=== PATIENT | female | born 1975 | race Caucasian/White ===

== ENCOUNTER 2016-08-17 19:56 | Emergency (ER) | payer OTHER, SELFPAY ==
--- NOTE | 2016-08-17 20:34 | ERPHSYRPT ---
- History of Present Illness Time Seen by Provider: 08/17/16 20:26 Source: patient, other Exam Limitations: no limitations Patient Subjective Stated Complaint: "i just want to end my life. the ambrose that i was seeing ended it and wanted me out of the house. he threw me out yesterday. i tried to kill myself last night by cutting my arm open. i was going tohang myself today" Triage Nursing Assessment: aox3, breathing unlabored, skin pink warm dry with 2 vertical lacs noted to left forarm and 2 horizontal lacs noted to left thigh, no bleeding noted and all well approximated, steady gait, tearful, pt had spool of rope in jacket pocket Physician History: The patient is a 41-year-old female with a friend who brings her in for severe depression and suicidal ideation since yesterday. She has a past medical history significant for numerous suicidal attempts and numerous psychiatric hospitalizations. Last night her on and off boyfriend of 20 years kicked her out of the house. She then took a knife and made 2 superficial lacerations to her left arm and 2 superficial lacerations to her left thigh. She bought a rope and was going to hang herself tonight. She said she might also step in front of a train. She denies alcohol use tonight. She states she used meth amphetamine one week ago. She also uses marijuana. She denies taking any overdose of her medicines, although she said she would possibly do that if she was sent home. She called the [facility] and discussed her situation. They do not have any beds so they sent her to the ER. Timing/Duration: yesterday Severity of Symptoms-Max: severe Severity of Symptoms-Current: severe Context related to: significant other Suicidal thoughts: gesture, specific plan Associated Symptoms: depressed, suicidal ideation Previous symptoms: same symptoms as today Allergies/Adverse Reactions: amoxicillin [Amoxicillin] Allergy (Mild, Verified 08/17/16 20:05) codeine [Codeine] Allergy (Mild, Verified 08/17/16 20:05) Home Medications: Escitalopram Oxalate [Lexapro] 10 mg PO DAILY 10/10/15 [History] Cyanocobalamin (Vitamin B-12) [Vitamin B-12] 1 mcg IM DIRECTIONS UNKNOWN [History] Fluticasone/Salmeterol [Advair Hfa 115-21 Mcg Inhaler] 1 - 2 puffs IH Q4-6HPRN PRN 08/17/16 [History] Levothyroxine Sodium 88 Mcg [Synthroid 88 Mcg] 88 mcg PO DAILY 08/17/16 [ History] Hx Tetanus, Diphtheria Vaccination/Date Given: No Hx Influenza Vaccination/Date Given: No Hx Pneumococcal Vaccination/Date Given: No - Past Medical History Pertinent Past Medical History: Yes Neurological History: Migraines ENT History: No Pertinent History Cardiac History: No Pertinent History Respiratory History: COPD Endocrine Medical History: No Pertinent History Musculoskeletal History: No Pertinent History GI Medical History: No Pertinent History History: No Pertinent History Psycho-Social History: Anxiety, Bipolar, Depression, Other Female Reproductive Disorders: Fibroids Other Medical History: benign brain tumor - Past Surgical History Past Surgical History: Yes Neuro Surgical History: No Pertinent History, Other Cardiac: No Pertinent History Respiratory: No Pertinent History Gastrointestinal: No Pertinent History Genitourinary: No Pertinent History Musculoskeletal: No Pertinent History Female Surgical History: Section Other Surgical History: Tumors from hip, head,and arm removed - Social History Smoking Status: Current every day smoker How long have you smoked: 40 Exposure to second hand smoke: Yes Drug Use: marijuana Patient Lives Alone: No - Female History Hx Last Menstrual Period: hyster Hx Now: No - Review of Systems Constitutional: No Fever, No Chills Eyes: No Symptoms Ears, Nose, & Throat: No Symptoms Respiratory: No Cough, No Dyspnea Cardiac: No Chest Pain, No Edema, No Syncope Abdominal/Gastrointestinal: No Abdominal Pain, No Nausea, No Vomiting, No Diarrhea Genitourinary Symptoms: No Dysuria Musculoskeletal: No Back Pain, No Neck Pain Skin: No Rash Neurological: No Dizziness, No Focal Weakness, No Sensory Changes Psychological: Drug Abuse, Depression, Suicidal Ideations, Emotional Lability Endocrine: No Symptoms Hematologic/Lymphatic: No Symptoms Immunological/Allergic: No Symptoms All Other Systems: Reviewed and Negative - Nursing Vital Signs Nursing Vital Signs: Initial Vital Signs Pulse Rate 71 Respiratory Rate 14 Blood Pressure [Right Arm] 110/36 Pain Intensity 0 - Physical Exam General Appearance: moderate distress Eyes, Ears, Nose, Throat Exam: normal ENT inspection, moist mucous membranes Neck Exam: normal inspection, non-tender, supple Respiratory Exam: normal breath sounds, lungs clear, No respiratory distress Cardiovascular Exam: regular rate/rhythm, No edema Gastrointestinal/Abdominal Exam: soft, No tenderness, No distention Extremities Exam: normal inspection, normal range of motion, No evidence of injury, No edema Current Suicidality: has suicide plan Neurological Exam: depressed affect Behavior/Eye Contact/Speech: cooperative, avoids eye contact Thoughts/Hallucinations: no apparent hallucination Skin Exam: normal color, warm, dry, No rash SpO2 Interpretation: normal Ordered Tests: Active Orders 24 hr Category Date Time Status ACETAMINOPHEN Stat Lab 08/17/16 20:57 Completed BMP Stat Lab 08/17/16 20:57 Completed CBC W DIFF Stat Lab 08/17/16 20:57 Completed Ethyl Alcohol,Urine Stat Lab 08/17/16 20:57 Completed HEPATIC FUNCTION PANEL Stat Lab 08/18/16 00:00 Completed SALICYLATE Stat Lab 08/17/16 20:57 Completed TSH [TSH, 3RD Generation] Stat Lab 08/18/16 00:00 Completed UA W/ MICROSCOPIC Stat Lab 08/17/16 20:57 Completed Urine Triage Profile Stat Lab 08/17/16 20:57 Completed Lab/Rad Data: Laboratory Result Diagrams 08/17/16 20:57 08/17/16 20:57 Laboratory Results 08/18/16 08/17/16 08/17/16 Range/Units 00:00 20:57 20:57 WBC (4.0-10.5) K/mm3 RBC (4.1-5.4) M/mm3 Hgb (12.0-16.0) gm/dl Hct (35-47) % MCV (78-100) fl MCH (26-32) pg MCHC (32-36) g/dl RDW (11.5-14.0) % Plt Count (150-450) K/mm3 MPV (6-9.5) fl Gran % (36.0-66.0) % Lymphocytes % (24.0-44.0) % Monocytes % (0.0-12.0) % Eosinophils % (0.00-5.0) % Basophils % (0.0-0.4) % Basophils # (0-0.4) Sodium 136 (136-145) mEq/L Potassium 4.3 (3.5-5.1) mEq/L Chloride 102 (98-107) mEq/L Carbon Dioxide 23.6 (21-32) mEq/L Anion Gap 15.0 (5-15) MEQ/L BUN 12 (9-20) mg/dL Creatinine 0.80 (0.55-1.30) mg/dl Estimated GFR > 60 ML/MIN Glucose 85 (70-110) MG/DL Calcium 9.2 (8.5-10.1) mg/dL Total Bilirubin 0.7 (0.2-1.0) mg/dL Direct Bilirubin 0.19 (0.0-0.2) MG/DL AST 42 H (15-37) U/L ALT 22 (12-78) U/L Alkaline Phosphatase 110 (46-116) U/L Serum Total Protein 8.1 (6.4-8.2) gm/dL Albumin 4.0 (3.4-5.0) g/dL TSH 3rd Generation 12.413 H (0.358-3.740) mIU/L Ur Collection Type Urine Color (YELLOW) Urine Appearance (CLEAR) Urine pH 7.0 (5-6) Ur Specific Wing (1.005-1.025) Urine Protein (Negative) Urine Glucose (UA) (NEGATIVE) mg/dL Urine Ketones (NEGATIVE) Urine Nitrite (NEGATIVE) Urine Bilirubin (NEGATIVE) Urine Urobilinogen (0-1) mg/dL Urine WBC (Auto) (NEGATIVE) Urine RBC (Auto) (0-5) Say/ul Urine Microscopic RBC (0-2) /HPF Urine Microscopic WBC (0-5) /HPF Ur Epithelial Cells (FEW) /HPF Amorphous Crystals (NEGATIVE) /HPF Urine Bacteria (NEGATIVE) /HPF Urine Mucus (NEGATIVE) /HPF Salicylates 5.2 (2.8-20.0) mg/dl Urine Opiates Level (NEGATIVE) Ur Methadone (NEGATIVE) Acetaminophen < 2.0 L (10-30) ug/ml Urine Barbiturates (NEGATIVE) Ur Phencyclidine (PCP) (NEGATIVE) Urine Amphetamine (NEGATIVE) U Benzodiazepine Level (NEGATIVE) Urine Cocaine (NEGATIVE) Urine Marijuana (THC) (NEGATIVE) Urine Ethyl Alcohol < 3 (0.00-20) mg/dl Specimen Received 08/17/16 08/17/16 08/17/16 Range/Units 20:57 20:57 20:57 WBC 5.0 (4.0-10.5) K/mm3 RBC 4.80 (4.1-5.4) M/mm3 Hgb 14.0 (12.0-16.0) gm/dl Hct 42.7 (35-47) % MCV 89.0 (78-100) fl MCH 29.2 (26-32) pg MCHC 32.8 (32-36) g/dl RDW 13.7 (11.5-14.0) % Plt Count 204 (150-450) K/mm3 MPV 10.0 H (6-9.5) fl Gran % 63.4 (36.0-66.0) % Lymphocytes % 30.0 (24.0-44.0) % Monocytes % 6.0 (0.0-12.0) % Eosinophils % 0.4 (0.00-5.0) % Basophils % 0.2 (0.0-0.4) % Basophils # 0.01 (0-0.4) Sodium (136-145) mEq/L Potassium (3.5-5.1) mEq/L Chloride (98-107) mEq/L Carbon Dioxide (21-32) mEq/L Anion Gap (5-15) MEQ/L BUN (9-20) mg/dL Creatinine (0.55-1.30) mg/dl Estimated GFR ML/MIN Glucose (70-110) MG/DL Calcium (8.5-10.1) mg/dL Total Bilirubin (0.2-1.0) mg/dL Direct Bilirubin (0.0-0.2) MG/DL AST (15-37) U/L ALT (12-78) U/L Alkaline Phosphatase (46-116) U/L Serum Total Protein (6.4-8.2) gm/dL Albumin (3.4-5.0) g/dL TSH 3rd Generation (0.358-3.740) mIU/L Ur Collection Type CLEAN CATCH Urine Color YELLOW (YELLOW) Urine Appearance SLIGHTLY CLOUDY (CLEAR) Urine pH 7.0 (5-6) Ur Specific Wing 1.020 (1.005-1.025) Urine Protein TRACE (Negative) Urine Glucose (UA) NEGATIVE (NEGATIVE) mg/dL Urine Ketones MODERATE-40 (NEGATIVE) Urine Nitrite NEGATIVE (NEGATIVE) Urine Bilirubin SMALL (NEGATIVE) Urine Urobilinogen 1 (0-1) mg/dL Urine WBC (Auto) NEGATIVE (NEGATIVE) Urine RBC (Auto) NEGATIVE (0-5) Say/ul Urine Microscopic RBC 0-2 (0-2) /HPF Urine Microscopic WBC 0-2 (0-5) /HPF Ur Epithelial Cells MANY (FEW) /HPF Amorphous Crystals FEW (NEGATIVE) /HPF Urine Bacteria MODERATE (NEGATIVE) /HPF Urine Mucus MODERATE (NEGATIVE) /HPF Salicylates (2.8-20.0) mg/dl Urine Opiates Level NEG. (NEGATIVE) Ur Methadone NEG. (NEGATIVE) Acetaminophen (10-30) ug/ml Urine Barbiturates NEG. (NEGATIVE) Ur Phencyclidine (PCP) NEG. (NEGATIVE) Urine Amphetamine NEG. (NEGATIVE) U Benzodiazepine Level NEG. (NEGATIVE) Urine Cocaine NEG. (NEGATIVE) Urine Marijuana (THC) POS. (NEGATIVE) Urine Ethyl Alcohol (0.00-20) mg/dl Specimen Received 08/18/16 2100 - Progress Progress: unchanged Counseled pt/family regarding: lab results, diagnosis - Departure Time of Disposition: 04:23 Departure Disposition: Transfer (Transfer to [facility] per Dr Diaz) Clinical Impression: Depression, Suicide ideation Condition: Stable Critical Care Time: No
[2016-08-17 21:04] LABS: BASOPHIL % 0.2 % (0.0-0.4); Eosinophil % 0.4 % (0.00-5.0); Granulocytes % 63.4 % (36.0-66.0); Mean Corpuscular Hemoglobin 29.2 pg (26-32); Platelet Count 204 K/mm3 (150-450); Red Cell Distribution Width 13.7 % (11.5-14.0)
[2016-08-17 21:20] LABS: Bacteria MODERATE /HPF (NEGATIVE); COMPLETE URINE MICROSCOPIC? YES; Collection Type CLEAN CATCH; Epithelial Cells MANY /HPF (FEW); Mucus MODERATE /HPF (NEGATIVE); WBC 0-2 /HPF (0-5)
[2016-08-17 21:26] LABS: ACETAMINOPHEN < 2.0 ug/ml (10-30); BLOOD UREA NITROGEN 12 mg/dL (9-20); CHLORIDE 102 mEq/L (98-107); Carbon Dioxide 23.6 mEq/L (21-32); Glucose 85 MG/DL (70-110); Potassium 4.3 mEq/L (3.5-5.1); SODIUM 136 mEq/L (136-145)
[2016-08-18 03:25] LABS: BILIRUBIN,TOTAL 0.7 mg/dL (0.2-1.0); Total Protein 8.1 gm/dL (6.4-8.2)
[2016-08-18 03:37] LABS: Direct Bilirubin 0.19 MG/DL (0.0-0.2)
[2016-08-18 04:50] VITALS: BP 123/63; PULSE 67; O2SAT 97
== END 2016-08-18 05:05 | disposition short-term general hospital (02) ==
LOC: ED 19:56
DX: F32.9 Major depressive disorder, single episode, unspecified (principal); R45.851 Suicidal ideations; S51.812A Laceration without foreign body of left forearm, initial encounter; S71.112A Laceration without foreign body, left thigh, initial encounter; X78.1XXA Intentional self-harm by knife, initial encounter
CPT/HCPCS: 36415; 80048; 80076; 80307; 80320; 81000; 83986; 84443; 85025; 99284; 99285; G0481

== ENCOUNTER 2018-08-20 15:40 | Emergency (ER) | payer OTHER ==
[2018-08-20] MEDS ORDERED: TYLENOL 325 MG PO STA (16:21)
[2018-08-20] MEDS ORDERED: Levofloxacin 250MG Tablet PO ONE (16:22)
[2018-08-20] MEDS ORDERED: DUONEB 0.5-3 MG/3 ml Neb IH ONE ×2 (16:23→16:46)
[2018-08-20] MEDS ORDERED: TYLENOL 325 MG ONE (16:30)
[2018-08-20] MEDS ORDERED: Levofloxacin 250MG Tablet ONE (16:30)
--- NOTE | 2018-08-20 16:30 | ERPHSYRPT ---
- History of Present Illness Time Seen by Provider: 08/20/18 16:10 Source: patient Exam Limitations: clinical condition Patient Subjective Stated Complaint: cough for 2 weeks, thick sputum-brownish in color, diarrhea Triage Nursing Assessment: Pt c/o of a cough for the past 2 weeks, coughing up thick brownish sputum, diarrhea, had been on antibiotics and steroids but finished her regimen, pt is flush in color, afebrile, diaphoretic, tachycardic, rates pain in chest as a 4/10 when she coughs Physician History: PATIENT WITH A HISTORY OF A PRODUCTIVE COUGH FOR 2 WEEKS, FINISHED A 1 WEEK COURSE OF ANTIBIOTIC KEFLEX WITH NO IMPROVEMENT. DENIES FEVER,CHILLS OR NIGHT SWEATS. HAS A PERSISTENT SORETHROAT. Timing/Duration: week(s) Cough Quality/Degree: productive cough Possible Cause: occasional episodes Modifying Factors: Improves With: coughing, other (SMOKER) International travel in last 2 weeks: No Allergies/Adverse Reactions: amoxicillin [Amoxicillin] Allergy (Mild, Verified 08/20/18 16:09) codeine [Codeine] Allergy (Mild, Verified 08/20/18 16:09) Home Medications: Escitalopram Oxalate [Lexapro] 10 mg PO DAILY 10/10/15 [History] Cyanocobalamin (Vitamin B-12) [Vitamin B-12] 1 mcg IM DIRECTIONS UNKNOWN [History] Fluticasone/Salmeterol [Advair Hfa 115-21 Mcg Inhaler] 1 - 2 puffs IH Q4-6HPRN PRN 08/17/16 [History] Levothyroxine Sodium 88 Mcg [Synthroid 88 Mcg] 88 mcg PO DAILY 08/17/16 [ History] Albuterol Common Canister [Proventil Common Canister] 1 inh PO UD PRN [History] Aripiprazole 10 mg [Abilify 10 MG] 10 mg PO DAILY 08/20/18 [History] Oxcarbazepine 300 mg [Trileptal 300 MG Tablet] 300 mg PO DAILY 08/20/18 [ History] Hx Tetanus, Diphtheria Vaccination/Date Given: No Hx Influenza Vaccination/Date Given: No Hx Pneumococcal Vaccination/Date Given: No - Review of Systems Constitutional: No Symptoms, No Fever, No Chills Eyes: No Symptoms Ears, Nose, & Throat: No Symptoms, Throat Pain Respiratory: Cough, No Dyspnea Cardiac: No Chest Pain, No Edema, No Syncope Abdominal/Gastrointestinal: No Symptoms, No Abdominal Pain, No Nausea, No Vomiting, No Diarrhea Genitourinary Symptoms: No Symptoms, No Dysuria Musculoskeletal: No Symptoms, No Back Pain, No Neck Pain Skin: No Rash Neurological: No Dizziness, No Focal Weakness, No Sensory Changes Psychological: No Symptoms Endocrine: No Symptoms Hematologic/Lymphatic: No Symptoms All Other Systems: Reviewed and Negative - Past Medical History Pertinent Past Medical History: Yes Neurological History: Migraines ENT History: No Pertinent History Cardiac History: No Pertinent History Respiratory History: COPD Endocrine Medical History: No Pertinent History Musculoskeletal History: No Pertinent History GI Medical History: No Pertinent History History: No Pertinent History Psycho-Social History: Anxiety, Bipolar, Depression, Other Female Reproductive Disorders: Fibroids Other Medical History: benign brain tumor - Past Surgical History Past Surgical History: Yes Neuro Surgical History: No Pertinent History, Other Cardiac: No Pertinent History Respiratory: No Pertinent History Gastrointestinal: No Pertinent History Genitourinary: No Pertinent History Musculoskeletal: No Pertinent History Female Surgical History: Hysterectomy, Section Other Surgical History: Tumors from hip, head,and arm removed - Social History Smoking Status: Current every day smoker How long have you smoked: 33 years Exposure to second hand smoke: Yes Drug Use: marijuana Patient Lives Alone: No - Female History Hx Now: No (hysterectomy) - Nursing Vital Signs Nursing Vital Signs: Initial Vital Signs Temperature 98.0 F 08/20/18 15:56 Pulse Rate 107 H 08/20/18 15:56 Blood Pressure 125/90 08/20/18 15:56 O2 Sat by Pulse Oximetry 97 08/20/18 15:56 Pain Scale Pain Intensity 2 - Physical Exam General Appearance: no apparent distress, alert Eye Exam: PERRL/EOMI, eyes nml inspection Ears, Nose, Throat Exam: normal ENT inspection, TMs normal, pharynx normal, moist mucous membranes Neck Exam: normal inspection, non-tender, supple, full range of motion Respiratory Exam: normal breath sounds ( ), lungs clear, diminished breath sounds ( AT BASES), No respiratory distress Cardiovascular Exam: regular rate/rhythm, normal heart sounds Gastrointestinal/Abdomen Exam: No tenderness Back Exam: normal inspection, No CVA tenderness, No vertebral tenderness Extremity Exam: normal inspection, normal range of motion Neurologic Exam: alert, oriented x 3, cooperative, normal mood/affect, sensation nml, No motor deficits Skin Exam: normal color, warm, dry, No rash Lymphatic Exam: No adenopathy SpO2 Interpretation: normal SpO2: 98 - Radiology Exams Chest X-ray Interpretation: Interpreted by me (HYPERVENTILATED LUNGS, NO EVIDENCE OF INFILTRATES) Ordered Tests: Active Orders 24 hr Category Date Time Status CHEST 2 VIEWS (PA AND LAT) Stat Exams 08/20/18 17:01 Ordered Peak Expiratory Flow Rate ONCE RT 08/20/18 16:51 Active Respiratory Therapy Assessment DAILY RT 08/20/18 16:51 Active Medication Summary Discontinued Medications Generic Name Dose Route Start Last Admin Trade Name Dustinq PRN Reason Stop Dose Admin Acetaminophen 650 mg 08/20/18 16:21 08/20/18 16:30 Tylenol 325 Mg PO 08/20/18 16:22 650 mg STAT STA Administration Acetaminophen Confirm 08/20/18 16:30 Tylenol 325 Mg Administered 08/20/18 16:31 Dose 650 mg .ROUTE .STK-MED ONE Albuterol/Ipratropium 3 ml 08/20/18 16:23 08/20/18 16:51 Duoneb 0.5-3 Mg/3 Ml Neb IH 08/20/18 16:24 3 ml STAT ONE Administration Albuterol/Ipratropium Confirm 08/20/18 16:46 Duoneb 0.5-3 Mg/3 Ml Neb Administered 08/20/18 16:47 Dose 3 ml IH .STK-MED ONE Levofloxacin 500 mg 08/20/18 16:22 08/20/18 16:30 Levofloxacin 250mg Tablet PO 08/20/18 16:23 500 mg STAT ONE Administration Levofloxacin Confirm 08/20/18 16:30 Levofloxacin 250mg Tablet Administered 08/20/18 16:31 Dose 500 mg .ROUTE .STK-MED ONE Lab/Rad Data: Laboratory Results 08/20/18 Range/Units 16:34 Influenza Type A Ag NEGATIVE (NEGATIVE) Influenza Type B Ag NEGATIVE (NEGATIVE) RSV (PCR) NEGATIVE (Negative) Group A Strep Antibody NEGATIVE (NEGATIVE) - Progress Progress Note: 08/20/18 16:28 TYLENOL 650MG, LEVAQUIN 500MG ORALLY, FOLLOWED BY DUO NEB AEROSOL 08/20/18 17:31, STREP AND INFLUENZA NEGATIVE Counseled pt/family regarding: lab results, diagnosis, need for follow-up - Departure Time of Disposition: 17:45 Departure Disposition: Home Clinical Impression: ACUTE EXACERBATION COPD Clinical Impression: (Ruled Out): Acute exacerbation of asthma with allergic rhinitis Condition: Stable Critical Care Time: No Referrals: JACE FRENCH [Primary Care Provider] - Additional Instructions: TAKE OVER THE COUNTER COUGH SYRUP EVERY 4 HOURS NEEDED. ANTIBIOTIC LEVAQUIN 500MG DAILY FOR 10 DAYS. PREDNISONE 20MG, 2 TABLETS DAILY FOR 4 DAYS. TYLENOL OR MOTRIN NEEDED FOR FEVER. CONSULT YOUR PRIMARY CARE PROVIDER FOR FOLLOWUP IN 1 WEEK. RETURN TO EMERGENCY FOR FEVER, PERSISTENT COUGH OR DIFFICULTY BREATHING. Prescriptions: Levofloxacin [Levaquin] 500 mg PO DAILY #10 tablet Prednisone 20 mg [Deltasone 20 mg] 2 tab PO DAILY #8 tablet
[2018-08-20 17:08] VITALS: PULSE 85
[2018-08-20 17:13] LABS: Group A Strep NEGATIVE (NEGATIVE); INFLUENZA A NEGATIVE (NEGATIVE); INFLUENZA B NEGATIVE (NEGATIVE); RESPIRATORY SYNCTIAL VIRUS NEGATIVE (Negative)
[2018-08-20 17:49] VITALS: BP 110/88; O2SAT 96
--- NOTE | 2018-08-20 22:50 | XRAY ---
Indication: Cough. Comparison: May 22, 2015. PA/lateral chest remains hyperinflated and clear. Heart is not enlarged. Bony thorax intact. No new/acute findings. Impression: Stable nonacute hyperinflated chest.
== END 2018-08-20 17:48 | disposition home or self-care (01) ==
LOC: ED 15:40
DX: J44.1 Chronic obstructive pulmonary disease with (acute) exacerbation (principal); J45.901 Unspecified asthma with (acute) exacerbation; Z79.899 Other long term (current) drug therapy
CPT/HCPCS: 71046; 87631; 87651; 94150; 94640; 99284; A9270-GY

== ENCOUNTER 2019-05-08 13:08 | Emergency (ER) | payer OTHER ==
--- NOTE | 2019-05-08 13:24 | ERPHSYRPT ---
- History of Present Illness Time Seen by Provider: 05/08/19 13:10 Source: patient Exam Limitations: no limitations Physician History: Metal bar from a deer tripod came down and hit her on the top of her right wrist on 05/07/2019 at approximately 4 PM in the afternoon. The pain worsened throughout the day of 05/08/2019. Patient has not had any evaluation or treatment of her wrist pain since the injury. Occurred: yesterday Method of Injury: direct blow Quality: constant Severity of Pain-Max: moderate Severity of Pain-Current: severe Extremities Pain Location: wrist: right Modifying Factors: Improves With: immobilization, rest. Worsens With: movement Associated Symptoms: none, No back pain, No chills, No chest discomfort, No chest pain, No dyspnea, No fever, No jaw pain, No nausea, No neck pain, No sweating, No short of breath, No vomiting Allergies/Adverse Reactions: amoxicillin [Amoxicillin] Allergy (Mild, Verified 05/08/19 13:24) codeine [Codeine] Allergy (Mild, Verified 05/08/19 13:24) Home Medications: Escitalopram Oxalate [Lexapro] 10 mg PO DAILY 10/10/15 [History] Cyanocobalamin (Vitamin B-12) [Vitamin B-12] 1 mcg IM DIRECTIONS UNKNOWN [History] Fluticasone/Salmeterol [Advair Hfa 115-21 Mcg Inhaler] 1 - 2 puffs IH Q4-6HPRN PRN 08/17/16 [History] Levothyroxine Sodium 88 Mcg [Synthroid 88 Mcg] 88 mcg PO DAILY 08/17/16 [ History] Albuterol Common Canister [Proventil Common Canister] 1 inh PO UD PRN [History] Aripiprazole 10 mg [Abilify 10 MG] 10 mg PO DAILY 08/20/18 [History] Oxcarbazepine 300 mg [Trileptal 300 MG Tablet] 300 mg PO DAILY 08/20/18 [ History] Hx Tetanus, Diphtheria Vaccination/Date Given: No Hx Influenza Vaccination/Date Given: No Hx Pneumococcal Vaccination/Date Given: No - Review of Systems Constitutional: No Fever, No Chills, No Fatigue Eyes: No Eye Pain, No Tearing, No Vision Changes Ears, Nose, & Throat: No Nose Pain, No Epistaxis, No Mouth Pain, No Loose Teeth , No Painful Swallowing Respiratory: No Cough, No Dyspnea Cardiac: No Chest Pain, No Palpitations, No Syncope Abdominal/Gastrointestinal: No Abdominal Pain, No Nausea, No Vomiting Genitourinary Symptoms: No Hematuria, No Flank Pain Musculoskeletal: No Back Pain, No Neck Pain Skin: No Pruritis, No Rash, No Skin Lesions Neurological: No Dizziness, No Focal Weakness, No Headache, No Sensory Changes, No Tremors Psychological: No Anxiety Hematologic/Lymphatic: No Easy Bleeding, No Easy Bruising All Other Systems: Reviewed and Negative - Past Medical History Pertinent Past Medical History: Yes Neurological History: Migraines ENT History: No Pertinent History Cardiac History: No Pertinent History Respiratory History: COPD Endocrine Medical History: No Pertinent History Musculoskeletal History: No Pertinent History GI Medical History: No Pertinent History History: No Pertinent History Psycho-Social History: Anxiety, Bipolar, Depression, Other Female Reproductive Disorders: Fibroids Other Medical History: benign brain tumor - Past Surgical History Past Surgical History: Yes Neuro Surgical History: No Pertinent History, Other Cardiac: No Pertinent History Respiratory: No Pertinent History Gastrointestinal: No Pertinent History Genitourinary: No Pertinent History Musculoskeletal: No Pertinent History Female Surgical History: Hysterectomy, Section Other Surgical History: Tumors from hip, head,and arm removed - Social History Smoking Status: Current every day smoker How long have you smoked: 33 years Exposure to second hand smoke: Yes Drug Use: marijuana Patient Lives Alone: No - Female History Hx Now: No - Nursing Vital Signs Nursing Vital Signs: Initial Vital Signs Temperature 97.6 F 05/08/19 13:14 Pulse Rate 96 H 05/08/19 13:14 Blood Pressure 98/78 05/08/19 13:14 O2 Sat by Pulse Oximetry 100 05/08/19 13:14 Pain Scale Pain Intensity 10 - Physical Exam General Appearance: no apparent distress, alert Eyes, Ears, Nose, Throat Exam: pharynx normal, moist mucous membranes Neck Exam: normal inspection, non-tender, supple, full range of motion, No Brudzinski Cardiovascular/Respiratory Exam: chest non-tender, normal breath sounds, regular rate/rhythm, heart sounds normal Back Exam: normal inspection, normal range of motion, No CVA tenderness, No vertebral tenderness Shoulder Exam: normal inspection, non-tender, no evidence of injury, normal ROM , No bone tenderness, No deformity Elbow/Forearm Exam: normal inspection, non-tender, no evidence of injury, normal ROM, No bone tenderness, No deformity Wrist Exam: bone tenderness (right only), limited ROM (right only), pain (right only), swelling (right only) Hand Exam: normal inspection, non-tender, no evidence of injury, normal ROM, No bone tenderness, No deformity, No laceration, No soft tissue tenderness DTR - Upper Extremity Exam: tricep (R): 2+, tricep (L): 2+ Neuro/Tendon Exam: normal sensation, normal motor functions, normal tendon functions, no evidence tendon injury, No motor deficit, No sensory deficit Mental Status Exam: alert, oriented x 3, cooperative Skin Exam: normal color, warm, dry, No rash, No petechiae, No abrasion, No ecchymosis, No laceration SpO2 Interpretation: normal O2 Delivery: Room Air - Course Nursing assessment & vital signs reviewed: Yes - Radiology Exams Right Wrist X-ray Interpretation: Interpreted by me, Reviewed by me, No Fracture, Nml Alignment, Other (mild soft tissue swelling) Ordered Tests: Active Orders 24 hr Category Date Time Status WRIST (MIN 3 VIEWS) Stat Exams 05/08/19 13:14 Ordered Medication Summary Discontinued Medications Generic Name Dose Route Start Last Admin Trade Name Parker PRN Reason Stop Dose Admin Ketorolac Tromethamine 60 mg 05/08/19 13:31 Toradol 30 Mg Injection IM 05/08/19 13:32 STAT ONE - Progress Progress: improved Progress Note: 05/08/19 13:47 Pain is beginning to improve with ice application and IM Toradol Counseled pt/family regarding: diagnosis, need for follow-up, rad results - Departure Departure Disposition: Home Clinical Impression: Contusion of right wrist, initial encounter Condition: Good Critical Care Time: No Referrals: JACE FRENCH [Primary Care Provider] - [facility]-Ortho M-[id number] Instructions: Wrist Pain, Contusion (DC) Additional Instructions: your wrist x-rays were interpreted as being negative for any fracture or dislocation by the emergency department physician today. We will notify you if there is any change in the interpretation by the radiologist A. changes her course of action. Use ice for 15-20 minutes on, 40-45 minutes off 3-4 times a day over the next few days to help with pain and swelling. Follow-up in the orthopedic clinic as an outpatient at 8 AM if the the pain has continued to bother you within the next 3 days. return immediately back to the emergency department if any loss of function, loss of sensation, discoloration, breakdown in the skin, or any other concerning signs or symptoms that were not present at the days and return visit for immediate reevaluation in the emergency department. Prescriptions: Etodolac 400 mg [Lodine 400 mg] 400 mg PO BID PRN PRN #20 tablet PRN Reason: Pain
[2019-05-08] MEDS ORDERED: TORAdol 30 mg Injection ONE (14:01)
[2019-05-08] MEDS: TORAdol 30 mg Injection IM ONE (14:03)
[2019-05-08 14:07] VITALS: BP 110/81; PULSE 101; O2SAT 97
--- NOTE | 2019-05-09 08:06 | XRAY ---
Indication: Pain following injury. Comparison: February 09, 2009. 3 views of the right wrist obtained. No bony, articular, or soft tissue abnormalities.
== END 2019-05-08 14:18 | disposition home or self-care (01) ==
LOC: ED 13:08
DX: S60.211A Contusion of right wrist, initial encounter (principal); W22.8XXA Striking against or struck by other objects, initial encounter
CPT/HCPCS: 73110; 96372; 99284; J1885

== ENCOUNTER 2020-03-04 04:21 | Emergency (ER) | payer OTHER ==
[2020-03-04 04:43] VITALS: O2SAT 98
[2020-03-04 04:48] LABS: Absolute Neutrophil Ct (ANC) 3.93 (1.4-6.9); BASOPHIL % 0.3 % (0.0-0.4); Basophil (Absolute #) 0.02 (0-0.4); Eosinophil % 1.1 % (0.00-5.0); Eosinophil (Absolute #) 0.07 (0-0.5); Hematocrit 41.9 % (35-47); Hemoglobin 13.2 gm/dl (12.0-16.0); Lymphocyte (Absolute #) 2.18 (1.0-4.6); Lymphocytes % 32.7 % (24.0-44.0); Mean Corpuscular Hgb Concent. 31.5 g/dl (32-36); Mean Platelet Volume 9.7 fl (7.5-11.0); Monocyte (Absolute #) 0.46 (0.0-1.3); Monocytes % 6.9 % (0.0-12.0); Platelet Count 199 K/mm3 (150-450); Red Blood Count 4.71 M/mm3 (4.1-5.4); Red Cell Distribution Width 12.9 % (11.5-14.0); White Blood Count 6.7 K/mm3 (4.0-10.5)
[2020-03-04] MEDS ORDERED: MORPHINE SULFATE 4 MG INJ IV ONE (04:50)
[2020-03-04] MEDS ORDERED: Zofran 4 MG/2 ML VIAL IV ONE (04:51)
--- NOTE | 2020-03-04 04:53 | ERPHSYRPT ---
- History of Present Illness Time Seen by Provider: 03/04/20 04:39 Historian: patient Exam Limitations: no limitations Patient Subjective Stated Complaint: "My chest hurts so bad on the left side." Triage Nursing Assessment: . Timing/Duration: yesterday, sudden, worse Activities at Onset: other Quality: sharpness, stabbing Chest Pain Radiation: no radiation Severity of Pain-Max: severe Severity of Pain-Current: severe Allergies/Adverse Reactions: amoxicillin [Amoxicillin] Allergy (Mild, Verified 03/04/20 04:26) codeine [Codeine] Allergy (Mild, Verified 03/04/20 04:26) Home Medications: Escitalopram Oxalate [Lexapro] 10 mg PO DAILY 10/10/15 [History] Cyanocobalamin (Vitamin B-12) [Vitamin B-12] 1 mcg IM DIRECTIONS UNKNOWN [History] Fluticasone/Salmeterol [Advair Hfa 115-21 Mcg Inhaler] 1 - 2 puffs IH Q4-6HPRN PRN 08/17/16 [History] Levothyroxine Sodium 88 Mcg [Synthroid 88 Mcg] 88 mcg PO DAILY 08/17/16 [History] Albuterol Common Canister [Ventolin Common Canister] 1 inh PO UD PRN 08/20/18 [History] Aripiprazole 10 mg [Abilify 10 MG] 10 mg PO DAILY 08/20/18 [History] Oxcarbazepine 300 mg [Trileptal 300 MG Tablet] 300 mg PO DAILY 08/20/18 [History] Hx Tetanus, Diphtheria Vaccination/Date Given: No Hx Influenza Vaccination/Date Given: No Hx Pneumococcal Vaccination/Date Given: No Travel Risk - International Travel Have you traveled outside of the country in past 3 weeks: No - Coronavirus Screening Are you exhibiting any of the following symptoms?: No Close contact with a COVID-19 positive Pt in past 14-21 Days: No - Past Medical History Pertinent Past Medical History: Yes Neurological History: Migraines ENT History: No Pertinent History Cardiac History: No Pertinent History Respiratory History: COPD Endocrine Medical History: No Pertinent History Musculoskeletal History: No Pertinent History GI Medical History: No Pertinent History History: No Pertinent History Psycho-Social History: Anxiety, Bipolar, Depression, Other Female Reproductive Disorders: Fibroids Other Medical History: benign brain tumor - Past Surgical History Past Surgical History: Yes Neuro Surgical History: No Pertinent History, Other Cardiac: No Pertinent History Respiratory: No Pertinent History Gastrointestinal: No Pertinent History Genitourinary: No Pertinent History Musculoskeletal: No Pertinent History Female Surgical History: Hysterectomy, Section Other Surgical History: Tumors from hip, head,and arm removed - Social History Smoking Status: Current every day smoker How long have you smoked: 33 years Exposure to second hand smoke: Yes Drug Use: marijuana Patient Lives Alone: No - Female History Hx Now: No - Nursing Vital Signs Nursing Vital Signs: Initial Vital Signs Temperature 97.5 F 03/04/20 04:21 Pulse Rate 70 03/04/20 04:21 Respiratory Rate 20 03/04/20 04:21 Blood Pressure 139/81 03/04/20 04:21 O2 Sat by Pulse Oximetry 99 03/04/20 04:21 Pain Scale Pain Intensity 4 - Physical Exam SpO2: 98 - Course EKG Interpreted by Me: RATE (67), Sinus Rhythm, NORMAL AXIS, NORMAL INTERVALS, NORMAL QRS Ordered Tests: Active Orders 24 hr Category Date Time Status Breeding Technician STAT Care 03/04/20 04:25 Active EKG-ER Only STAT Care 03/04/20 04:25 Active IV Insertion STAT Care 03/04/20 04:25 Active Pulse Oximetry (ED) STAT Care 03/04/20 04:25 Active CHEST 1 VIEW (PORTABLE) Stat Exams 03/04/20 04:40 Taken RIBS UNILATERAL Stat Exams 03/04/20 04:47 Taken CBC W DIFF Stat Lab 03/04/20 04:35 Completed CMP Stat Lab 03/04/20 04:35 Stop Req D-DIMER QUANTITATIVE Stat Lab 03/04/20 04:35 Stop Req NT PRO BNP Stat Lab 03/04/20 04:35 Stop Req Medication Summary Generic Name Dose Route Start Last Admin Trade Name Freq PRN Reason Stop Dose Admin Ketorolac Tromethamine 30 mg 03/04/20 06:29 Toradol 30 Mg Injection IV 03/04/20 06:30 STAT ONE Discontinued Medications Generic Name Dose Route Start Last Admin Trade Name Freq PRN Reason Stop Dose Admin Morphine Sulfate 4 mg 03/04/20 04:50 03/04/20 05:09 Morphine Sulfate 4 Mg Inj IV 03/04/20 04:51 4 mg STAT ONE Administration Morphine Sulfate Confirm 03/04/20 05:06 Morphine Sulfate 4 Mg Inj Administered 03/04/20 05:07 Dose 4 mg .ROUTE .STK-MED ONE Ondansetron HCl 4 mg 03/04/20 04:51 03/04/20 05:09 Zofran 4 Mg/2 Ml Vial IV 03/04/20 04:52 4 mg STAT ONE Administration Ondansetron HCl Confirm 03/04/20 05:06 Zofran 4 Mg/2 Ml Vial Administered 03/04/20 05:07 Dose 4 mg .ROUTE .STK-MED ONE Lab/Rad Data: Laboratory Result Diagrams 03/04/20 04:35 Laboratory Results 03/04/20 Range/Units 04:35 WBC 6.7 (4.0-10.5) K/mm3 RBC 4.71 (4.1-5.4) M/mm3 Hgb 13.2 (12.0-16.0) gm/dl Hct 41.9 (35-47) % MCV 89.0 (78-100) fl MCH 28.0 (26-32) pg MCHC 31.5 L (32-36) g/dl RDW 12.9 (11.5-14.0) % Plt Count 199 (150-450) K/mm3 MPV 9.7 (7.5-11.0) fl Gran % 59.0 (36.0-66.0) % Eos # (Auto) 0.07 (0-0.5) Absolute Lymphs (auto) 2.18 (1.0-4.6) Absolute Monos (auto) 0.46 (0.0-1.3) Lymphocytes % 32.7 (24.0-44.0) % Monocytes % 6.9 (0.0-12.0) % Eosinophils % 1.1 (0.00-5.0) % Basophils % 0.3 (0.0-0.4) % Absolute Granulocytes 3.93 (1.4-6.9) Basophils # 0.02 (0-0.4) - Progress Progress: improved, re-examined Air Movement: good Blood Culture(s) Obtained: No Antibiotics given: No Counseled pt/family regarding: diagnosis, need for follow-up, rad results - Departure Departure Disposition: Home Clinical Impression: Strain of chest wall Qualifiers: Encounter type: initial encounter Qualified Code(s): S29.011A - Strain of muscle and tendon of front wall of thorax, initial encounter Condition: Stable Critical Care Time: No Referrals: JACE FRENCH [Primary Care Provider] - (in 2 days for re evaluation) Instructions: Costochondritis (DC), Chest Pain (DC) Additional Instructions: Take Tylenol/ibuprofen as needed. Follow-up with your primary care physician for reevaluation. Do deep breathing exercises. Return to ER for worsening. Prescriptions: Ibuprofen 600 mg PO Q6HPRN PRN 10 Days #20 tablet PRN Reason: Pain
[2020-03-04] MEDS ORDERED: Zofran 4 MG/2 ML VIAL ONE (05:06)
[2020-03-04] MEDS ORDERED: MORPHINE SULFATE 4 MG INJ ONE (05:06)
[2020-03-04 06:23] VITALS: BP 113/82; PULSE 64
[2020-03-04] MEDS ORDERED: TORAdol 30 mg Injection IV ONE (06:29)
[2020-03-04] MEDS ORDERED: TORAdol 30 mg Injection ONE (06:35)
--- NOTE | 2020-03-04 20:09 | XRAY ---
Indication: Pain after a hug. Comparison: None 2 views of the left left ribs obtained. No bony, articular, or soft tissue abnormalities. Comment: Preliminary interpretation was made by [facility]. No critical discrepancy.
--- NOTE | 2020-03-04 20:09 | XRAY ---
Indication: Left rib pain following a hug. Comparison: August 20, 2018. Portable chest remains hyperinflated and clear. Heart is not enlarged. Bony thorax intact. Impression: Continued nonacute hyperinflated chest.
== END 2020-03-04 06:52 | disposition home or self-care (01) ==
LOC: ED 04:21
DX: S29.011A Strain of muscle and tendon of front wall of thorax, initial encounter (principal)
CPT/HCPCS: 36000; 36415; 71045; 71100; 85025; 93005; 93041; 94760; 96374; 96375; 99284; J1885; J2270; J2405

== ENCOUNTER 2020-08-15 13:05 | Emergency (ER) | payer OTHER ==
[2020-08-15 13:20] VITALS: O2SAT 98
[2020-08-15] MEDS ORDERED: Sodium Chloride 0.9% 1000 ML 1,000 ML IV STA (13:45)
[2020-08-15] MEDS ORDERED: Zofran 4 MG/2 ML VIAL IV ONE (13:45)
[2020-08-15] MEDS ORDERED: Sodium Chloride 0.9% 1000 ML 1,000 ML ONE (13:52)
[2020-08-15] MEDS ORDERED: Zofran 4 MG/2 ML VIAL ONE (13:52)
[2020-08-15 13:58] LABS: Absolute Neutrophil Ct (ANC) 4.37 (1.4-6.9); BASOPHIL % 0.2 % (0.0-0.4); Basophil (Absolute #) 0.01 (0-0.4); Eosinophil (Absolute #) 0.06 (0-0.5); Hemoglobin 14.5 gm/dl (12.0-16.0); Lymphocytes % 22.3 % (24.0-44.0); Mean Cell Volume 85.8 fl (78-100); Mean Corpuscular Hemoglobin 27.1 pg (26-32); Mean Corpuscular Hgb Concent. 31.5 g/dl (32-36); Mean Platelet Volume 9.2 fl (7.5-11.0); Monocyte (Absolute #) 0.43 (0.0-1.3); Monocytes % 6.9 % (0.0-12.0); Neutrophil % 69.6 % (36.0-66.0); Platelet Count 278 K/mm3 (150-450); Red Blood Count 5.36 M/mm3 (4.1-5.4); Red Cell Distribution Width 14.4 % (11.5-14.0); White Blood Count 6.3 K/mm3 (4.0-10.5)
[2020-08-15 14:09] LABS: ALBUMIN 4.7 g/dL (3.5-5.0); ALKALINE PHOSPHATASE 105 U/L (38-126); ANION GAP 16.5 MEQ/L (5-15); BLOOD UREA NITROGEN 16 mg/dL (7-17); CHLORIDE 104 mmol/L (98-107); Calcium 9.7 mg/dL (8.4-10.2); Carbon Dioxide 21 mmol/L (22-30); Creatinine 1 0.63 mg/dL (0.52-1.04); EST GLOMERULAR FILTRATION RATE > 60.0 ML/MIN; Glucose 102 mg/dL (74-106); LIPASE 73 U/L (23-300); Potassium 4.3 mmol/L (3.5-5.1); SGOT/AST 32 U/L (14-36); SGPT/ALT 25 U/L (0-35); SODIUM 137 mmol/L (137-145); Total Protein 8.9 g/dL (6.3-8.2)
--- NOTE | 2020-08-15 14:37 | XRAY ---
Indication: Cough, nausea, and vomiting. Positive Covid 19. Comparison: Chest exam March 04, 2020. 2 view abdomen nonacute and nonobstructed. Solid organs and osseous structures unremarkable. Single PA chest remains hyperinflated and clear. Heart is not enlarged. Bony thorax intact. Impression: Negative abdomen. Continued nonacute hyperinflated chest.
--- NOTE | 2020-08-15 15:05 | ERPHSYRPT ---
- History of Present Illness Time Seen by Provider: 08/15/20 13:07 Source: patient Exam Limitations: no limitations Patient Subjective Stated Complaint: Pt states "I have been having diarrhea for the past couple of weeks. I lost my taste and smell a week ago. I went to the respiratory clinic and they sent me here." Triage Nursing Assessment: Pt presented alert and oriented X 3, skin pwd. Pt ambulates with an upright steady gait. PT shivering. PT moaning. Physician History: 45 years old female with history of anxiety depression presented in the ER with chief complaint of flulike symptoms for the last 10 days with nasal congestion, intermittent wet to dry cough, vomiting and diarrhea. Patient reports multiple episodes of loose watery stool every day and multiple episodes of nonprojectile, nonbilious vomiting with no hematemesis. Denies any abdominal pain. Subjective feeling of chills but no fever. She is feeling fatigue malaise and no energy. Patient was seen initially at respiratory clinic and is referred here for further evaluation and hydration. Timing/Duration: day(s) (), gradual onset, worse Severity: moderate Modifying Factors: Worsens With: eating Associated Symptoms: nausea, vomiting, cough, loss of appetite, malaise, weakness, No abdominal pain, No fever Allergies/Adverse Reactions: amoxicillin [Amoxicillin] Allergy (Mild, Verified 03/04/20 04:26) codeine [Codeine] Allergy (Mild, Verified 03/04/20 04:26) Home Medications: Escitalopram Oxalate [Lexapro] 10 mg PO DAILY 10/10/15 [History] Cyanocobalamin (Vitamin B-12) [Vitamin B-12] 1 mcg IM DIRECTIONS UNKNOWN 08/17/16 [History] Fluticasone/Salmeterol [Advair Hfa 115-21 Mcg Inhaler] 1 - 2 puffs IH Q4-6HPRN PRN 08/17/16 [History] Levothyroxine Sodium 88 Mcg [Synthroid 88 Mcg] 88 mcg PO DAILY 08/17/16 [History] Albuterol Common Canister [Ventolin Common Canister] 1 inh PO UD PRN 08/20/18 [History] Aripiprazole 10 mg [Abilify 10 MG] 10 mg PO DAILY 08/20/18 [History] Oxcarbazepine 300 mg [Trileptal 300 MG Tablet] 300 mg PO DAILY 08/20/18 [History] Hx Tetanus, Diphtheria Vaccination/Date Given: No Hx Influenza Vaccination/Date Given: No Hx Pneumococcal Vaccination/Date Given: No Immunizations Up to Date: Yes Travel Risk - International Travel Have you traveled outside of the country in past 3 weeks: No - Coronavirus Screening Are you exhibiting any of the following symptoms?: Yes Symptoms: Vomiting/Diarrhea, Loss of Taste or Smell Close contact with a COVID-19 positive Pt in past 14-21 Days: No - Review of Systems Constitutional: Chills, Fatigue, Weakness Eyes: No Symptoms Ears, Nose, & Throat: Nose Congestion, Throat Pain Respiratory: Cough Cardiac: No Symptoms Abdominal/Gastrointestinal: Nausea, Vomiting, Diarrhea, Appetite Changes, No Abdominal Pain Genitourinary Symptoms: No Symptoms Musculoskeletal: Myalgias Skin: No Symptoms Neurological: No Symptoms Psychological: Anxiety Endocrine: No Symptoms Hematologic/Lymphatic: No Symptoms Immunological/Allergic: No Symptoms - Past Medical History Pertinent Past Medical History: Yes Neurological History: Migraines ENT History: No Pertinent History Cardiac History: No Pertinent History Respiratory History: COPD Endocrine Medical History: No Pertinent History Musculoskeletal History: No Pertinent History GI Medical History: No Pertinent History History: No Pertinent History Psycho-Social History: Anxiety, Bipolar, Depression, Other Female Reproductive Disorders: Fibroids Other Medical History: benign brain tumor - Past Surgical History Past Surgical History: Yes Neuro Surgical History: No Pertinent History, Other Cardiac: No Pertinent History Respiratory: No Pertinent History Gastrointestinal: No Pertinent History Genitourinary: No Pertinent History Musculoskeletal: No Pertinent History Female Surgical History: Hysterectomy, Section Other Surgical History: Tumors from hip, head,and arm removed - Social History Smoking Status: Current every day smoker How long have you smoked: years Exposure to second hand smoke: Yes Drug Use: marijuana Patient Lives Alone: No - Female History Hx Last Menstrual Period: hysterectomy Hx Now: No - Nursing Vital Signs Nursing Vital Signs: Initial Vital Signs Temperature 98.3 F 08/15/20 13:15 Pulse Rate 93 H 08/15/20 13:15 Respiratory Rate 24 08/15/20 13:15 Blood Pressure 135/90 08/15/20 13:15 O2 Sat by Pulse Oximetry 98 08/15/20 13:15 Pain Scale Pain Intensity 0 - Physical Exam General Appearance: no apparent distress, alert Eye Exam: PERRL/EOMI, eyes nml inspection Ears, Nose, Throat Exam: normal ENT inspection, TMs normal, pharyngeal erythema Neck Exam: normal inspection, non-tender, supple, full range of motion Respiratory Exam: normal breath sounds, lungs clear, No chest tenderness Cardiovascular Exam: regular rate/rhythm, normal heart sounds Gastrointestinal/Abdomen Exam: soft, normal bowel sounds, No tenderness, No distention, No guarding Back Exam: normal inspection, normal range of motion Extremity Exam: normal inspection, normal range of motion, pelvis stable Neurologic Exam: alert, oriented x 3, cooperative, 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, nml cerebellar function, nml station & gait, sensation nml, No motor deficits, No sensory deficit Skin Exam: normal color SpO2 Interpretation: normal SpO2: 98 O2 Delivery: Room Air Ordered Tests: Active Orders 24 hr Category Date Time Status IV Insertion STAT Care 08/15/20 13:45 Completed OBSTR/ACUTE ABDOMEN SERIES Stat Exams 08/15/20 13:45 Completed CBC W DIFF Stat Lab 08/15/20 13:45 Completed CMP Stat Lab 08/15/20 13:45 Completed HCG,QUALITATIVE URINE Stat Lab 08/15/20 14:22 Completed LIPASE Stat Lab 08/15/20 13:45 Completed Lactic Acid Stat Lab 08/15/20 13:45 Completed Medication Summary Discontinued Medications Generic Name Dose Route Start Last Admin Trade Name Freq PRN Reason Stop Dose Admin Sodium Chloride 1,000 mls @ 999 mls/hr 08/15/20 13:45 08/15/20 15:10 Sodium Chloride 0.9% 1000 Ml IV 08/15/20 14:45 Infused .Q1H1M STA Infusion Sodium Chloride Confirm 08/15/20 13:52 Sodium Chloride 0.9% 1000 Ml Administered 08/15/20 13:53 Dose 1,000 mls @ ud .ROUTE .STK-MED ONE Ondansetron HCl 4 mg 08/15/20 13:45 08/15/20 13:55 Zofran 4 Mg/2 Ml Vial IV 08/15/20 13:46 4 mg STAT ONE Administration Ondansetron HCl Confirm 08/15/20 13:52 Zofran 4 Mg/2 Ml Vial Administered 08/15/20 13:53 Dose 4 mg .ROUTE .STK-MED ONE Lab/Rad Data: Laboratory Result Diagrams 08/15/20 13:45 08/15/20 13:45 Laboratory Results 08/15/20 08/15/20 08/15/20 Range/Units 14:22 13:45 13:45 WBC (4.0-10.5) K/mm3 RBC (4.1-5.4) M/mm3 Hgb (12.0-16.0) gm/dl Hct (35-47) % MCV (78-100) fl MCH (26-32) pg MCHC (32-36) g/dl RDW (11.5-14.0) % Plt Count (150-450) K/mm3 MPV (7.5-11.0) fl Gran % (36.0-66.0) % Eos # (Auto) (0-0.5) Absolute Lymphs (auto) (1.0-4.6) Absolute Monos (auto) (0.0-1.3) Lymphocytes % (24.0-44.0) % Monocytes % (0.0-12.0) % Eosinophils % (0.00-5.0) % Basophils % (0.0-0.4) % Absolute Granulocytes (1.4-6.9) Basophils # (0-0.4) Sodium 137 (137-145) mmol/L Potassium 4.3 (3.5-5.1) mmol/L Chloride 104 (98-107) mmol/L Carbon Dioxide 21 L (22-30) mmol/L Anion Gap 16.5 H (5-15) MEQ/L BUN 16 (7-17) mg/dL Creatinine 0.63 (0.52-1.04) mg/dL Estimated GFR > 60.0 ML/MIN Glucose 102 (74-106) mg/dL Lactic Acid 1.3 (0.4-2.0) Calcium 9.7 (8.4-10.2) mg/dL Total Bilirubin 0.40 (0.2-1.3) mg/dL AST 32 (14-36) U/L ALT 25 (0-35) U/L Alkaline Phosphatase 105 (38-126) U/L Serum Total Protein 8.9 H (6.3-8.2) g/dL Albumin 4.7 (3.5-5.0) g/dL Lipase 73 (23-300) U/L Urine HCG, Qual NEGATIVE (Negative) 08/15/20 Range/Units 13:45 WBC 6.3 (4.0-10.5) K/mm3 RBC 5.36 (4.1-5.4) M/mm3 Hgb 14.5 (12.0-16.0) gm/dl Hct 46.0 (35-47) % MCV 85.8 (78-100) fl MCH 27.1 (26-32) pg MCHC 31.5 L (32-36) g/dl RDW 14.4 H (11.5-14.0) % Plt Count 278 (150-450) K/mm3 MPV 9.2 (7.5-11.0) fl Gran % 69.6 H (36.0-66.0) % Eos # (Auto) 0.06 (0-0.5) Absolute Lymphs (auto) 1.40 (1.0-4.6) Absolute Monos (auto) 0.43 (0.0-1.3) Lymphocytes % 22.3 L (24.0-44.0) % Monocytes % 6.9 (0.0-12.0) % Eosinophils % 1.0 (0.00-5.0) % Basophils % 0.2 (0.0-0.4) % Absolute Granulocytes 4.37 (1.4-6.9) Basophils # 0.01 (0-0.4) Sodium (137-145) mmol/L Potassium (3.5-5.1) mmol/L Chloride (98-107) mmol/L Carbon Dioxide (22-30) mmol/L Anion Gap (5-15) MEQ/L BUN (7-17) mg/dL Creatinine (0.52-1.04) mg/dL Estimated GFR ML/MIN Glucose (74-106) mg/dL Lactic Acid (0.4-2.0) Calcium (8.4-10.2) mg/dL Total Bilirubin (0.2-1.3) mg/dL AST (14-36) U/L ALT (0-35) U/L Alkaline Phosphatase (38-126) U/L Serum Total Protein (6.3-8.2) g/dL Albumin (3.5-5.0) g/dL Lipase (23-300) U/L Urine HCG, Qual (Negative) - Progress Progress: improved, re-examined Progress Note: 08/15/20 14:44 Patient is very anxious on presentation. She is counseled, given fluid and Zofran, on reevaluation feeling better. No vomiting or diarrhea while in the ER. Work-up is grossly negative for any acute findings. I believe patient has viral etiology symptoms, recommended hydration and supportive care. COVID-19 testing is obtained and recommended precautions until results are back. Discussed signs symptoms of worsening needing return to ER which he seems understanding. Stable for discharge. Counseled pt/family regarding: lab results, diagnosis, need for follow-up, rad results - Departure Departure Disposition: Home Clinical Impression: Viral syndrome, Nausea vomiting and diarrhea Condition: Stable Critical Care Time: No Referrals: JACE FRENCH [Primary Care Provider] - (1-2 days for reevaluation) Instructions: Nausea and Vomiting, Adult (DC), Viral Syndrome (DC) Additional Instructions: Drink plenty of fluids to keep yourself hydrated. Take Zofran as needed. Return to ER for intractable nausea vomiting diarrhea or if develop fever chills etc. Take Tylenol as needed. Prescriptions: Ondansetron ODT 4 MG [Zofran Odt 4 mg] 4 mg PO Q6H PRN PRN #10 tab.rapdis PRN Reason: Vomiting
[2020-08-15 15:12] VITALS: BP 120/84; PULSE 77
== END 2020-08-15 15:52 | disposition home or self-care (01) ==
LOC: ED 13:05
DX: R19.7 Diarrhea, unspecified (principal); R11.2 Nausea with vomiting, unspecified; B34.9 Viral infection, unspecified; R43.8 Other disturbances of smell and taste; R09.81 Nasal congestion; R05 Cough; R53.83 Other fatigue; F17.200 Nicotine dependence, unspecified, uncomplicated; F41.9 Anxiety disorder, unspecified; Z79.899 Other long term (current) drug therapy
CPT/HCPCS: 36000; 36415; 74022; 80053; 83605; 83690; 84703; 85025; 96360; 96374; U0003; 99284; J2405

== ENCOUNTER 2020-12-13 05:50 | Day surgery (SDC) | payer OTHER ==
--- NOTE | 2020-12-07 15:25 | HP ---
DATE OF SURGERY: 12/13/2020 HISTORY OF PRESENT ILLNESS: The patient reports frequent upper abdominal pain. It can be severe at times. She has been having some nausea and needing to take Zofran lately. At times this affects her for about three hours at a time. It has been going on for some time. Ultrasound showed some gallbladder polyps. PAST MEDICAL HISTORY: Asthma, thyroid, depression. PAST SURGICAL HISTORY: Tubal ligation. section. ALLERGIES: AMOXICILLIN. TYLENOL WITH CODEINE. MEDICATIONS: Abilify, Zoloft, [place] Thyroid, Advair inhaler. FAMILY HISTORY: None reported. SOCIAL HISTORY: Smokes one and a half packs cigarettes per day, denies alcohol. REVIEW OF SYSTEMS: CONSTITUTIONAL: Denies fever or chills. CHEST: Denies shortness of breath. CVS: Denies chest pain. ABDOMEN: Reports upper abdominal pain, nausea. Denies vomiting, diarrhea, constipation or rectal bleeding. INTEGUMENTARY: Negative. PHYSICAL EXAMINATION: GENERAL: No acute distress. CHEST: Nonlabored. No shortness of breath. CVS: Regular rate and rhythm. ABDOMEN: Soft, nontender. EXTREMITIES: No edema. NEUROLOGIC: Alert. PSYCHIATRIC: Appropriate. IMPRESSION: Symptomatic gallbladder polyps. PLAN: Laparoscopic cholecystectomy with Dr. Magan Ley. As dictated by Yee Irene NP.
[2020-12-13] MEDS ORDERED: Sensorcaine 0.25% 10 ML ONE (06:26)
[2020-12-13] MEDS ORDERED: Lactated Ringers 1,000 ML IV ONE ×2 (06:27→09:48)
[2020-12-13] MEDS ORDERED: Lactated Ringers 1,000 ML IV SCH (06:30)
[2020-12-13] MEDS ORDERED: Levofloxacin 500MG/100ML D5W 500 MG/100 ML BAG IV STA (06:32)
[2020-12-13] MEDS ORDERED: CLINDAMYCIN-D5W 900 MG/50 ML*** 900 MG/50 ML BAG IV ONE (06:34)
[2020-12-13] MEDS ORDERED: Levofloxacin 500MG/100ML D5W 500 MG/100 ML BAG IV ONE (06:34)
[2020-12-13 06:58] LABS: Hematocrit 41.4 % (35-47); Hemoglobin 12.8 gm/dl (12.0-16.0); Mean Cell Volume 86.8 fl (78-100); Mean Corpuscular Hemoglobin 26.8 pg (26-32); Mean Corpuscular Hgb Concent. 30.9 g/dl (32-36); Mean Platelet Volume 9.3 fl (7.5-11.0); Platelet Count 239 K/mm3 (150-450); Red Blood Count 4.77 M/mm3 (4.1-5.4); Red Cell Distribution Width 15.7 % (11.5-14.0); White Blood Count 4.6 K/mm3 (4.0-10.5)
[2020-12-13] MEDS ORDERED: CLINDAMYCIN-D5W 900 MG/50 ML*** 900 MG/50 ML BAG IV SCH (07:00)
[2020-12-13] MEDS ORDERED: DIPRIVAN 200 MG/20 ML IV ONE (07:16)
[2020-12-13] MEDS ORDERED: SUBLIMAZE 250 MCG/5 ML ONE (07:17)
[2020-12-13] MEDS ORDERED: Versed 2 MG/2 ML Injection ONE (07:17)
[2020-12-13] MEDS ORDERED: Zemuron 100 MG/10 ML ONE ×2 (08:39→08:40)
[2020-12-13] MEDS ORDERED: Zofran 4 MG/2 ML VIAL ONE (08:58)
[2020-12-13] MEDS ORDERED: BRIDION 200MG/2ML IV ONE (08:59)
[2020-12-13] MEDS ORDERED: Compazine 10 MG/2 ML ONE (09:24)
[2020-12-13] MEDS ORDERED: Hydromorphone 1 mg/ml Injection ONE (09:25)
[2020-12-13] MEDS ORDERED: SUBLIMAZE 100 MCG/2 ML ONE (09:25)
--- NOTE | 2020-12-13 09:54 | OP ---
SURGERY DATE/TIME: 12/13/2020 0828 PREOPERATIVE DIAGNOSIS: Gallbladder polyps. POSTOPERATIVE DIAGNOSIS: Gallbladder polyps and cholesterolosis. PROCEDURE: Laparoscopic cholecystectomy. SURGEON: Dr. Magan Ley. STATION SUPERVISOR: Dr. Moe Magana, [facility]. ANESTHESIA: General. ESTIMATED BLOOD LOSS: None. COMPLICATIONS: None. CONDITION: Stable. INDICATIONS: A patient with symptomatic polyps. DESCRIPTION OF PROCEDURE AND FINDINGS: Taken to surgery. General anesthetic, routine prep and drape. Veress needle inserted. Opening pressure of 1, insufflating pressure 14. There were adhesions taken down. There was just a little cholesterolosis particles inside the gallbladder. Cystic duct defined. Cystic artery defined. Both structures triply clipped and transected. Clips noted across and well approximated. Gallbladder rolled out of gallbladder fossa. The gallbladder delivered through abdominal port with minimal widening. Hole closure device was used. No spillage occurred. Field was dry. CO2 exsufflated. Skin closed with 4-0 Vicryl and Steri-Strips. The patient tolerated the procedure satisfactorily.
[2020-12-13 10:50] VITALS: PULSE 62
[2020-12-13 10:56] VITALS: BP 125/67; O2SAT 94
== END 2020-12-13 10:45 | disposition home or self-care (01) ==
LOC: SDC 05:50
PROVIDERS: ATTEND Surgery
DX: K82.4 Cholesterolosis of gallbladder (principal); R10.10 Upper abdominal pain, unspecified; R11.0 Nausea; Z79.899 Other long term (current) drug therapy
CPT/HCPCS: 36415; 85027; J1170; J1956; J2250; J2405; J2704; J3010

== ENCOUNTER 2021-01-15 21:44 | Emergency (ER) | payer OTHER ==
[2021-01-15] MEDS ORDERED: Zofran 4 MG/2 ML VIAL IV ONE (22:52)
[2021-01-15] MEDS ORDERED: Sodium Chloride 0.9% 1000 ML 1,000 ML IV STA (22:52)
--- NOTE | 2021-01-15 23:03 | ERPHSYRPT ---
- History of Present Illness Time Seen by Provider: 01/15/21 22:50 Historian: patient Physician History: Patient is a 45-year-old female presents to our emergency department for evaluation of nausea vomiting and diarrhea. Patient had a cholecystectomy done on 13 December. Since then patient symptoms have been progressive. Patient followed up with her surgeon today who prescribed cholestyramine. Patient states that she cannot hold the medication down. Patient also complains of lower abdominal pain. Pain runs across her lower lower abdominal area. No vaginal discharge. No fever. No chest pain or shortness of breath. Symptoms are moderate in intensity. Patient voices no other complaints or concerns at this time. Timing/Duration: other (1 month) Activities at Onset: none Quality: aching Abdominal Pain Onset Location: RLQ, LLQ Pain Radiation: no radiation Severity of Pain-Max: moderate Severity of Pain-Current: mild Modifying Factors: Improves With: nothing Associated Symptoms: nausea, No chest pain, No fever/chills, No rash, No shortness of breath Previous symptoms: no prior history Allergies/Adverse Reactions: amoxicillin [Amoxicillin] Allergy (Mild, Verified 01/15/21 22:31) codeine [Codeine] Allergy (Mild, Verified 01/15/21 22:31) Home Medications: Fluticasone/Salmeterol [Advair Hfa 115-21 Mcg Inhaler] 1 - 2 puffs IH BID 08/17/16 [History] Albuterol Common Canister [Ventolin Common Canister] 2 inh PO UD PRN 08/20/18 [History] Aripiprazole 10 mg [Abilify 10 MG] 15 mg PO DAILY 08/20/18 [History] Ibuprofen 800 mg PO Q8HPRN PRN 12/04/20 [History] Sertraline HCl 50 mg [Zoloft 50 mg Tablet] 50 mg PO DAILY 12/04/20 [History] Thyroid,Pork [[place] Thyroid] 75 mg PO DAILY 12/04/20 [History] Hx Tetanus, Diphtheria Vaccination/Date Given: No Hx Influenza Vaccination/Date Given: No Hx Pneumococcal Vaccination/Date Given: No - Review of Systems Constitutional: No Symptoms, No Fever, No Chills Eyes: No Symptoms Ears, Nose, & Throat: No Symptoms Respiratory: No Symptoms, No Cough, No Dyspnea Cardiac: No Symptoms, No Chest Pain, No Edema, No Syncope Abdominal/Gastrointestinal: No Symptoms, No Abdominal Pain, No Nausea, No Vomiting, No Diarrhea Genitourinary Symptoms: No Symptoms, No Dysuria Musculoskeletal: No Symptoms, No Back Pain, No Neck Pain Skin: No Symptoms, No Rash Neurological: No Symptoms, No Dizziness, No Focal Weakness, No Sensory Changes Psychological: No Symptoms Endocrine: No Symptoms Hematologic/Lymphatic: No Symptoms Immunological/Allergic: No Symptoms All Other Systems: Reviewed and Negative - Past Medical History Pertinent Past Medical History: Yes Neurological History: Migraines ENT History: No Pertinent History Cardiac History: No Pertinent History Respiratory History: Asthma, COPD Endocrine Medical History: No Pertinent History, Hypothyroidism Musculoskeletal History: No Pertinent History GI Medical History: No Pertinent History History: No Pertinent History Psycho-Social History: Anxiety, Bipolar, Depression, Other Female Reproductive Disorders: Fibroids Other Medical History: benign brain tumor. Current everyday smoker. - Past Surgical History Past Surgical History: Yes Neuro Surgical History: No Pertinent History, Other Cardiac: No Pertinent History Respiratory: No Pertinent History Gastrointestinal: No Pertinent History Genitourinary: No Pertinent History Musculoskeletal: No Pertinent History Female Surgical History: Hysterectomy, Section Other Surgical History: Tumors from hip, head,and arm removed - Social History Smoking Status: Current every day smoker How long have you smoked: age 11 Exposure to second hand smoke: Yes Drug Use: marijuana Patient Lives Alone: No - Female History Hx Now: No - Nursing Vital Signs Nursing Vital Signs: Initial Vital Signs Temperature 97.9 F 01/15/21 22:35 Pulse Rate 78 01/15/21 22:35 Respiratory Rate 18 01/15/21 22:35 Blood Pressure 148/90 01/15/21 22:35 O2 Sat by Pulse Oximetry 97 01/15/21 22:35 Pain Scale Pain Intensity 0 - Physical Exam General Appearance: no apparent distress, alert Eye Exam: PERRL/EOMI, eyes nml inspection Ears, Nose, Throat Exam: normal ENT inspection, pharynx normal, moist mucous membranes Neck Exam: normal inspection, non-tender, supple, full range of motion Respiratory Exam: normal breath sounds, lungs clear, No respiratory distress Cardiovascular Exam: regular rate/rhythm, normal heart sounds Gastrointestinal/Abdomen Exam: soft, tenderness, other (Lower abdominal tender ness that spans lower abdomen from right to left. Overlying soft tissue intact. No signs of trauma.), No mass Back Exam: normal inspection, normal range of motion, No CVA tenderness, No vertebral tenderness Extremity Exam: normal inspection, normal range of motion, pelvis stable Neurologic Exam: alert, oriented x 3, cooperative, normal mood/affect, sensation nml, No motor deficits Skin Exam: normal color, warm, dry SpO2 Interpretation: normal SpO2: 97 O2 Delivery: Room Air - Course Nursing assessment & vital signs reviewed: Yes - CT Exams Abdomen/Pelvis CT Interpretation: Tele-radiologist Report (The majority of the colon is collapsed which is a nonspecific appearance that can correlate with colitis in the appropriate clinical setting. Masslike appearance of proximal duodenum near the pancreatic head is most likely due to redundancy of the duodenum. However the patient has persistent obstr) Ordered Tests: Active Orders 24 hr Category Date Time Status IV Insertion STAT Care 01/15/21 22:52 Active ABDOMEN AND PELVIS W CONTRAST [CT] Stat Exams 01/16/21 00:15 Taken CBC W DIFF Stat Lab 01/15/21 23:15 Completed CMP Stat Lab 01/15/21 23:15 Completed LIPASE Stat Lab 01/15/21 23:15 Completed TROPONIN Q3H Lab 01/15/21 23:15 Completed TROPONIN Q3H Lab 01/16/21 02:05 Completed TROPONIN Q3H Lab 01/16/21 05:00 Ordered TROPONIN Q3H Lab 01/16/21 08:00 Ordered TROPONIN Q3H Lab 01/16/21 11:00 Ordered UA W/RFX UR CULTURE Stat Lab 01/15/21 23:00 Completed Medication Summary Discontinued Medications Generic Name Dose Route Start Last Admin Trade Name Parker PRN Reason Stop Dose Admin Sodium Chloride 1,000 mls @ 999 mls/hr 01/15/21 22:52 01/16/21 01:26 Sodium Chloride 0.9% 1000 Ml IV 01/15/21 23:52 999 mls/hr .Q1H1M STA Administration Sodium Chloride Confirm 01/16/21 00:18 Sodium Chloride 0.9% 1000 Ml Administered 01/16/21 00:19 Dose 1,000 mls @ ud .ROUTE .STK-MED ONE Ondansetron HCl 4 mg 01/15/21 22:52 01/16/21 01:27 Zofran 4 Mg/2 Ml Vial IV 01/15/21 22:53 4 mg STAT ONE Administration Ondansetron HCl Confirm 01/16/21 00:18 Zofran 4 Mg/2 Ml Vial Administered 01/16/21 00:19 Dose 4 mg .ROUTE .STK-MED ONE Lab/Rad Data: Laboratory Result Diagrams 01/15/21 23:15 01/15/21 23:15 Laboratory Results 01/16/21 01/15/21 01/15/21 Range/Units 02:05 23:15 23:15 WBC (4.0-10.5) K/mm3 RBC (4.1-5.4) M/mm3 Hgb (12.0-16.0) gm/dl Hct (35-47) % MCV (78-100) fl MCH (26-32) pg MCHC (32-36) g/dl RDW (11.5-14.0) % Plt Count (150-450) K/mm3 MPV (7.5-11.0) fl Gran % (36.0-66.0) % Eos # (Auto) (0-0.5) Absolute Lymphs (auto) (1.0-4.6) Absolute Monos (auto) (0.0-1.3) Lymphocytes % (24.0-44.0) % Monocytes % (0.0-12.0) % Eosinophils % (0.00-5.0) % Basophils % (0.0-0.4) % Absolute Granulocytes (1.4-6.9) Basophils # (0-0.4) Sodium 142 (137-145) mmol/L Potassium 4.1 (3.5-5.1) mmol/L Chloride 107 (98-107) mmol/L Carbon Dioxide 20 L (22-30) mmol/L Anion Gap 18.7 H (5-15) MEQ/L BUN 18 H (7-17) mg/dL Creatinine 0.74 (0.52-1.04) mg/dL Estimated GFR > 60.0 ML/MIN Glucose 131 H (74-106) mg/dL Calcium 9.9 (8.4-10.2) mg/dL Total Bilirubin 0.40 (0.2-1.3) mg/dL AST 33 (14-36) U/L ALT 23 (0-35) U/L Alkaline Phosphatase 123 (38-126) U/L Troponin I < 0.012 < 0.012 (0.000-0.034) ng/mL Serum Total Protein 9.4 H (6.3-8.2) g/dL Albumin 5.1 H (3.5-5.0) g/dL Lipase 60 (23-300) U/L Urine Color (YELLOW) Urine Appearance (CLEAR) Urine pH (5-6) Ur Specific [place] (1.005-1.025) Urine Protein (Negative) Urine Ketones (NEGATIVE) Urine Blood (0-5) Say/ul Urine Nitrite (NEGATIVE) Urine Bilirubin (NEGATIVE) Urine Urobilinogen (0-1) mg/dL Ur Leukocyte Esterase (NEGATIVE) Urine WBC (Auto) (0-5) /HPF Urine RBC (Auto) (0-2) /HPF U Epithel Cells (Auto) (FEW) /HPF Urine Bacteria (Auto) (NEGATIVE) /HPF Amorphous Crystals (NEGATIVE) /HPF Urine Mucus (Auto) (NEGATIVE) /HPF Urine Culture Reflexed (NO) Urine Glucose (NEGATIVE) mg/dL 01/15/21 01/15/21 Range/Units 23:15 23:00 WBC 5.5 (4.0-10.5) K/mm3 RBC 5.63 H (4.1-5.4) M/mm3 Hgb 15.0 (12.0-16.0) gm/dl Hct 46.9 (35-47) % MCV 83.3 (78-100) fl MCH 26.6 (26-32) pg MCHC 32.0 (32-36) g/dl RDW 16.1 H (11.5-14.0) % Plt Count 317 (150-450) K/mm3 MPV 9.5 (7.5-11.0) fl Gran % 66.6 H (36.0-66.0) % Eos # (Auto) 0.03 (0-0.5) Absolute Lymphs (auto) 1.34 (1.0-4.6) Absolute Monos (auto) 0.45 (0.0-1.3) Lymphocytes % 24.5 (24.0-44.0) % Monocytes % 8.2 (0.0-12.0) % Eosinophils % 0.5 (0.00-5.0) % Basophils % 0.2 (0.0-0.4) % Absolute Granulocytes 3.65 (1.4-6.9) Basophils # 0.01 (0-0.4) Sodium (137-145) mmol/L Potassium (3.5-5.1) mmol/L Chloride (98-107) mmol/L Carbon Dioxide (22-30) mmol/L Anion Gap (5-15) MEQ/L BUN (7-17) mg/dL Creatinine (0.52-1.04) mg/dL Estimated GFR ML/MIN Glucose (74-106) mg/dL Calcium (8.4-10.2) mg/dL Total Bilirubin (0.2-1.3) mg/dL AST (14-36) U/L ALT (0-35) U/L Alkaline Phosphatase (38-126) U/L Troponin I (0.000-0.034) ng/mL Serum Total Protein (6.3-8.2) g/dL Albumin (3.5-5.0) g/dL Lipase (23-300) U/L Urine Color YELLOW (YELLOW) Urine Appearance TURBID (CLEAR) Urine pH 5.0 (5-6) Ur Specific [place] 1.023 (1.005-1.025) Urine Protein 30 (Negative) Urine Ketones TRACE (NEGATIVE) Urine Blood NEGATIVE (0-5) Say/ul Urine Nitrite NEGATIVE (NEGATIVE) Urine Bilirubin NEGATIVE (NEGATIVE) Urine Urobilinogen NEGATIVE (0-1) mg/dL Ur Leukocyte Esterase NEGATIVE (NEGATIVE) Urine WBC (Auto) 0-2 (0-5) /HPF Urine RBC (Auto) NONE SEEN (0-2) /HPF U Epithel Cells (Auto) NONE (FEW) /HPF Urine Bacteria (Auto) NONE SEEN (NEGATIVE) /HPF Amorphous Crystals MANY (NEGATIVE) /HPF Urine Mucus (Auto) SLIGHT (NEGATIVE) /HPF Urine Culture Reflexed NO (NO) Urine Glucose NEGATIVE (NEGATIVE) mg/dL - Progress Progress: improved Progress Note: Assessed. She feels well. No nausea or vomiting during her time in our ED. Patient states the Zofran really helped. Patient states that she did relatively well after surgery because of the Zofran. Patient states she ran out last week. Patient requesting a refill on her Zofran prescription. Fluids infused. CT abdomen pelvis not show any acute pathology. There is splenomegaly. Hepatic steatosis. There was urinary bladder wall thickening concerning for possible infection. However the UA was negative for UTI. There is a masslike appearance of the proximal duodenum near the pancreatic head but the radiologist feels this is due to a redundant duodenum. This collapse. This is a nonspecific appearance that can correlate with colitis in the clinical setting. No indication for treatment of colitis at this time. We will discharge patient home. A prescription for Zofran will be provided to patient. Patient to follow-up with her primary care doctor or her general surgeon within 48 hours for reevaluation. Patient states she is ready for discharge. She voices no other complaints or concerns at this time. 01/16/21 03:25 01/16/21 03:28 Counseled pt/family regarding: lab results, diagnosis, need for follow-up, rad results - Departure Departure Disposition: Home Clinical Impression: Nausea and vomiting, Hepatic steatosis, Emphysema lung, Splenomegaly, Nephrolithiasis, Diarrhea, Colitis Condition: Stable Critical Care Time: No Referrals: JACE FRENCH [Primary Care Provider] - Instructions: Chronic Obstructive Pulmonary Disease Additional Instructions: Discharge/Care Plan RUSTAM ABARCA was seen on 01/16/21 in the Emergency Room. The patient was counseled regarding Diagnosis,Lab results, Imaging studies, need for follow up and when to return to the Emergency Room. Prescriptions given: Discharge Note I have spoken with the patient and/or caregivers. I have explained the patient's condition, diagnosis and treatment plan based on the information available to me at this time. I have answered the patient's and/or caregiver's questions and addressed any concerns. The patient and/or caregivers have as good understanding of the patient's diagnosis, condition and treatment plan as can be expected at this point. The vital signs have been stable. The patient's condition is stable and appropriate for discharge from the emergency department. The patient will pursue further outpatient evaluation with the primary care physician or other designated or consulting physician as outlined in the discharge instructions. The patient and/or caregivers are agreeable to this plan of care and follow-up instructions have been explained in detail. The patient and/or caregivers have received these instruction. The patient/and or caregivers are aware that any significant change in condition or worsening of symptoms should prompt an immediate return to this or the closest emergency department or call 911. Prescriptions: Ondansetron ODT 4 MG [Zofran Odt 4 mg] 4 mg PO Q6H PRN PRN #10 tab.rapdis PRN Reason: Nausea
[2021-01-15 23:42] LABS: Absolute Neutrophil Ct (ANC) 3.65 (1.4-6.9); BASOPHIL % 0.2 % (0.0-0.4); Basophil (Absolute #) 0.01 (0-0.4); Eosinophil % 0.5 % (0.00-5.0); Eosinophil (Absolute #) 0.03 (0-0.5); Hematocrit 46.9 % (35-47); Lymphocyte (Absolute #) 1.34 (1.0-4.6); Lymphocytes % 24.5 % (24.0-44.0); Mean Cell Volume 83.3 fl (78-100); Mean Corpuscular Hemoglobin 26.6 pg (26-32); Mean Platelet Volume 9.5 fl (7.5-11.0); Monocyte (Absolute #) 0.45 (0.0-1.3); Monocytes % 8.2 % (0.0-12.0); Neutrophil % 66.6 % (36.0-66.0); Platelet Count 317 K/mm3 (150-450); Red Blood Count 5.63 M/mm3 (4.1-5.4); Red Cell Distribution Width 16.1 % (11.5-14.0); White Blood Count 5.5 K/mm3 (4.0-10.5)
[2021-01-15 23:47] LABS: ALBUMIN 5.1 g/dL (3.5-5.0); ALKALINE PHOSPHATASE 123 U/L (38-126); ANION GAP 18.7 MEQ/L (5-15); BLOOD UREA NITROGEN 18 mg/dL (7-17); CHLORIDE 107 mmol/L (98-107); Calcium 9.9 mg/dL (8.4-10.2); Carbon Dioxide 20 mmol/L (22-30); Creatinine 1 0.74 mg/dL (0.52-1.04); EST GLOMERULAR FILTRATION RATE > 60.0 ML/MIN; Glucose 131 mg/dL (74-106); LIPASE 60 U/L (23-300); Potassium 4.1 mmol/L (3.5-5.1); SGOT/AST 33 U/L (14-36); SGPT/ALT 23 U/L (0-35); SODIUM 142 mmol/L (137-145); Total Protein 9.4 g/dL (6.3-8.2)
[2021-01-16] MEDS ORDERED: Sodium Chloride 0.9% 1000 ML 1,000 ML ONE (00:18)
[2021-01-16] MEDS ORDERED: Zofran 4 MG/2 ML VIAL ONE (00:18)
[2021-01-16 01:26] LABS: Amourphous Crystal MANY /HPF (NEGATIVE); Appearance TURBID (CLEAR); Bilirubin NEGATIVE (NEGATIVE); Blood NEGATIVE Ery/ul (0-5); Glucose NEGATIVE (NEGATIVE); Ketones TRACE (NEGATIVE); Leukocyte Esterase NEGATIVE (NEGATIVE); Mucus SLIGHT /HPF (NEGATIVE); Nitrite NEGATIVE (NEGATIVE); Protein,Urine Dip 30 (Negative); Specific Gravity 1.023 (1.005-1.025); Urobilinogen NEGATIVE mg/dL (0-1)
[2021-01-16 01:27] LABS: Bacteria NONE SEEN /HPF (NEGATIVE); RBC NONE SEEN /HPF (0-2); WBC 0-2 /HPF (0-5)
[2021-01-16 05:10] VITALS: BP 120/74; PULSE 72; O2SAT 98
--- NOTE | 2021-01-16 23:00 | XRAY ---
Exam: CT of the abdomen and pelvis with IV contrast from 01/16/2021. CTDI: 3.71 mGy Comparison: None. Indication: 45-year-old female who complains of abdominal pain and nausea/vomiting/diarrhea since cholecystectomy one month ago. She also has a history of past hysterectomy. Technique: Post-IV contrast axial images were obtained through the abdomen and pelvis during automated injection of 80 ML's of Isovue 370 contrast material. Reconstructed coronal and sagittal images were created and reviewed. Findings: The lung bases reveal some bibasilar emphysematous changes. The heart size is normal. The liver appears of unremarkable size and uniform attenuation. There may be some mild hepatic steatosis. Surgical clips consistent with prior cholecystectomy are noted. No significant biliary duct distention is seen. The spleen is mildly enlarged measuring 13.8 cm in length. No focal splenic mass is seen. The pancreas and adrenal glands appear unremarkable. There is nonspecific soft tissue density near the junction of the descending and transverse duodenum. It is likely at this is due to redundancy of the duodenal sweep. Consider follow-up upper GI endoscopy or upper GI exam to further assess this. The kidneys reveal a tiny nonobstructing calculus within the lower pole the right kidney. There appears to be a 0.9 cm in diameter cyst within the medial aspect of the upper pole of the right kidney and a 1.3 cm oval-shaped cyst at the anterior medial aspect of the upper pole of the left kidney. No hydronephrosis is seen. Both kidneys function on delayed images. The abdominal aorta appears of normal diameter revealing no aneurysm. A few small nonspecific shotty periaortic lymph nodes are seen. No definite pathologic lymphadenopathy is seen. There is no free intraperitoneal air or bowel containing ventral hernia. There is no evidence of appendicitis within the right lower quadrant. Mild scattered stool is seen throughout the colon. I see no evidence of bowel distention or bowel wall thickening. The colon appears relatively collapsed. Within the pelvis, the uterus is surgically absent. Urine volume is low within the urinary bladder. The pelvic adnexa reveal no abnormal mass, lymphadenopathy, or free intraperitoneal fluid. The skeleton reveals no fracture or aggressive bone lesion. Impression: 1. There is a masslike appearance of the proximal duodenum. The pancreatic head which is most likely due to redundancy of the duodenum. However, if the patient has persistent obstructive symptoms, correlation with endoscopy or upper GI barium study may be helpful for further evaluation. 2. Tiny nonobstructing lower pole right renal calculus, a couple small renal cysts, and splenomegaly are seen. 3. Mild hepatic steatosis. 4. Status post cholecystectomy and hysterectomy. 5. Emphysematous changes are evident at the lung bases.
== END 2021-01-16 04:15 | disposition home or self-care (01) ==
LOC: ED 21:44
DX: R11.2 Nausea with vomiting, unspecified (principal); K52.9 Noninfective gastroenteritis and colitis, unspecified; R10.32 Left lower quadrant pain; R10.31 Right lower quadrant pain; Z79.899 Other long term (current) drug therapy; E03.9 Hypothyroidism, unspecified; F17.200 Nicotine dependence, unspecified, uncomplicated; K76.0 Fatty (change of) liver, not elsewhere classified; J43.9 Emphysema, unspecified; R16.1 Splenomegaly, not elsewhere classified; N20.0 Calculus of kidney
CPT/HCPCS: 36000; 36415; 74177; 80053; 81001; 83690; 84484; 85025; 96374; 99284; J2405

== ENCOUNTER 2021-04-14 13:40 | Emergency (ER) | payer OTHER ==
[2021-04-14] MEDS ORDERED: MORPHINE SULFATE 4 MG INJ IV ONE (14:29)
[2021-04-14] MEDS ORDERED: Zofran 4 MG/2 ML VIAL IV ONE (14:29)
[2021-04-14] MEDS ORDERED: Sodium Chloride 0.9% 1000 ML 1,000 ML IV STA (14:29)
[2021-04-14] MEDS ORDERED: Zofran 4 MG/2 ML VIAL ONE (14:30)
[2021-04-14] MEDS ORDERED: MORPHINE SULFATE 4 MG INJ ONE (14:30)
[2021-04-14] MEDS ORDERED: Sodium Chloride 0.9% 1000 ML 1,000 ML ONE (14:30)
[2021-04-14 14:33] LABS: Absolute Neutrophil Ct (ANC) 5.35 (1.4-6.9); BASOPHIL % 0.1 % (0.0-0.4); Basophil (Absolute #) 0.01 (0-0.4); Eosinophil % 0.7 % (0.00-5.0); Eosinophil (Absolute #) 0.05 (0-0.5); Hematocrit 45.6 % (35-47); Hemoglobin 14.6 gm/dl (12.0-16.0); Lymphocytes % 15.6 % (24.0-44.0); Mean Corpuscular Hemoglobin 27.5 pg (26-32); Mean Platelet Volume 9.4 fl (7.5-11.0); Monocyte (Absolute #) 0.54 (0.0-1.3); Monocytes % 7.7 % (0.0-12.0); Neutrophil % 75.9 % (36.0-66.0); Platelet Count 232 K/mm3 (150-450); Red Cell Distribution Width 14.9 % (11.5-14.0); White Blood Count 7.1 K/mm3 (4.0-10.5)
[2021-04-14 14:34] LABS: ALBUMIN 4.6 g/dL (3.5-5.0); ALKALINE PHOSPHATASE 118 U/L (38-126); BLOOD UREA NITROGEN 14 mg/dL (7-17); CHLORIDE 104 mmol/L (98-107); Calcium 9.2 mg/dL (8.4-10.2); Carbon Dioxide 23 mmol/L (22-30); EST GLOMERULAR FILTRATION RATE > 60.0 ML/MIN; Glucose 115 mg/dL (74-106); LIPASE 36 U/L (23-300); Potassium 3.7 mmol/L (3.5-5.1); SGOT/AST 24 U/L (14-36); SGPT/ALT 17 U/L (0-35); SODIUM 139 mmol/L (137-145); Total Protein 8.6 g/dL (6.3-8.2)
--- NOTE | 2021-04-14 15:04 | ERPHSYRPT ---
- History of Present Illness Time Seen by Provider: 04/14/21 13:57 Historian: patient Exam Limitations: no limitations Patient Subjective Stated Complaint: RLQ pain when coughing Triage Nursing Assessment: pt to ED c/o RLQ pain since last night with coughing. pt was recently in last few months daignosed with cancer to L kidney, emphesema, and kidney stone in R kidney. pt has hx COPD. reports she always coughs but it is much worse lately. rates 5/10 dull pain at rest that becomes sharp and more intense when coughing. LMB last night, chronic diarrhea Physician History: 45 years old female with history of recently diagnosed right renal cancer, kidney stones, emphysema, tobacco abuse presented to the ER with chief complaint of right lower quadrant pain for the last 2 to 3 days, moderate to severe intensity, sharp in nature, nonradiating, aggravated with palpation, coughing/movements and partial relief with being still. Denies any difficulty urination. Has nausea but no vomiting. No fever or chills reported. Timing/Duration: day(s) (2), gradual onset, worse Activities at Onset: rest Quality: sharpness Abdominal Pain Onset Location: RLQ Pain Radiation: no radiation Severity of Pain-Max: moderate Severity of Pain-Current: moderate Modifying Factors: Worsens With: coughing, movement, palpation Associated Symptoms: nausea Previous symptoms: no prior history Allergies/Adverse Reactions: amoxicillin [Amoxicillin] Allergy (Mild, Verified 04/14/21 13:58) codeine [Codeine] Allergy (Mild, Verified 04/14/21 13:58) Home Medications: Fluticasone/Salmeterol [Advair Hfa 115-21 Mcg Inhaler] 1 - 2 puffs IH BID 08/17/16 [History] Aripiprazole 10 mg [Abilify 10 MG] 15 mg PO DAILY 08/20/18 [History] Ibuprofen 800 mg PO Q8HPRN PRN 12/04/20 [History] Sertraline HCl 50 mg [Zoloft 50 mg Tablet] 50 mg PO DAILY 12/04/20 [History] Thyroid,Pork [[place]ill Thyroid] 75 mg PO DAILY 12/04/20 [History] Levalbuterol Tartrate [Levalbuterol Tartrate Hfa] 1 - 2 puffs IH Q4-6HPRN PRN 04/14/21 [History] Hx Tetanus, Diphtheria Vaccination/Date Given: No Hx Influenza Vaccination/Date Given: No Hx Pneumococcal Vaccination/Date Given: No Immunizations Up to Date: No Travel Risk - International Travel Have you traveled outside of the country in past 3 weeks: No - Coronavirus Screening Are you exhibiting any of the following symptoms?: Yes Symptoms: Fever, Cough: New Onset, Vomiting/Diarrhea Close contact with a COVID-19 positive Pt in past 14-21 Days: No - Vaccine Status Have you recieved a Covid-19 vaccination: Yes [employer]: [employer] - Vaccination Dates Date of 2cond Vaccination (if applicable): has not had second dose yet - Review of Systems Constitutional: No Symptoms Eyes: No Symptoms Ears, Nose, & Throat: No Symptoms Respiratory: No Symptoms Cardiac: No Symptoms Abdominal/Gastrointestinal: Abdominal Pain, Nausea Genitourinary Symptoms: No Symptoms Musculoskeletal: No Symptoms Skin: No Symptoms Neurological: No Symptoms Psychological: No Symptoms Endocrine: No Symptoms Hematologic/Lymphatic: No Symptoms Immunological/Allergic: No Symptoms - Past Medical History Pertinent Past Medical History: Yes Neurological History: Migraines ENT History: No Pertinent History Cardiac History: No Pertinent History Respiratory History: Asthma, COPD, Emphysema Endocrine Medical History: No Pertinent History, Hypothyroidism Musculoskeletal History: No Pertinent History GI Medical History: No Pertinent History History: No Pertinent History Psycho-Social History: Anxiety, Bipolar, Depression, Other Female Reproductive Disorders: Fibroids Other Medical History: benign brain tumor. Current everyday smoker. kidney cancer - Past Surgical History Past Surgical History: Yes Neuro Surgical History: No Pertinent History, Other Cardiac: No Pertinent History Respiratory: No Pertinent History Gastrointestinal: Cholecystectomy Genitourinary: No Pertinent History Musculoskeletal: No Pertinent History Female Surgical History: Hysterectomy, Section Other Surgical History: Tumors from hip, head,and arm removed - Social History Smoking Status: Current every day smoker How long have you smoked: age 11 Exposure to second hand smoke: Yes Drug Use: marijuana Patient Lives Alone: No - Female History Hx Now: No - Nursing Vital Signs Nursing Vital Signs: Initial Vital Signs Temperature 98.3 F 04/14/21 13:49 Pulse Rate 109 H 04/14/21 13:49 Respiratory Rate 20 04/14/21 13:49 Blood Pressure 119/103 04/14/21 13:49 O2 Sat by Pulse Oximetry 97 04/14/21 13:49 Pain Scale Pain Intensity 2 - Physical Exam General Appearance: no apparent distress, alert Eye Exam: PERRL/EOMI, eyes nml inspection Ears, Nose, Throat Exam: normal ENT inspection, TMs normal, pharynx normal Neck Exam: normal inspection, supple, full range of motion Respiratory Exam: normal breath sounds, lungs clear Cardiovascular Exam: normal heart sounds, tachycardia Gastrointestinal/Abdomen Exam: soft, normal bowel sounds, tenderness (Right flank/right lower quadrant), guarding Back Exam: normal inspection, normal range of motion Extremity Exam: normal inspection, normal range of motion, pelvis stable Neurologic Exam: alert, oriented x 3, cooperative Skin Exam: normal color SpO2 Interpretation: normal SpO2: 97 O2 Delivery: Room Air Ordered Tests: Active Orders 24 hr Category Date Time Status IV Insertion STAT Care 04/14/21 14:27 Completed ABDOMEN AND PELVIS W CONTRAST [CT] Stat Exams 04/14/21 14:29 Completed CBC W DIFF Stat Lab 04/14/21 14:00 Completed CMP Stat Lab 04/14/21 14:00 Completed LIPASE Stat Lab 04/14/21 14:00 Completed UA W/RFX UR CULTURE Stat Lab 04/14/21 14:33 Completed Medication Summary Discontinued Medications Generic Name Dose Route Start Last Admin Trade Name Freq PRN Reason Stop Dose Admin Sodium Chloride 1,000 mls @ 999 mls/hr 04/14/21 14:29 04/14/21 16:05 Sodium Chloride 0.9% 1000 Ml IV 04/14/21 15:29 Infused .Q1H1M STA Infusion Sodium Chloride Confirm 04/14/21 14:30 Sodium Chloride 0.9% 1000 Ml Administered 04/14/21 14:31 Dose 1,000 mls @ ud .ROUTE .STK-MED ONE Metoclopramide HCl 10 mg 04/14/21 15:24 04/14/21 15:26 Reglan 10 Mg/2 Ml IV 04/14/21 15:25 10 mg STAT ONE Administration Metoclopramide HCl Confirm 04/14/21 15:24 Reglan 10 Mg/2 Ml Administered 04/14/21 15:25 Dose 10 mg .ROUTE .STK-MED ONE Morphine Sulfate 4 mg 04/14/21 14:29 04/14/21 14:34 Morphine Sulfate 4 Mg Inj IV 04/14/21 14:30 4 mg STAT ONE Administration Morphine Sulfate Confirm 04/14/21 14:30 Morphine Sulfate 4 Mg Inj Administered 04/14/21 14:31 Dose 4 mg .ROUTE .STK-MED ONE Ondansetron HCl 4 mg 04/14/21 14:29 04/14/21 14:34 Zofran 4 Mg/2 Ml Vial IV 04/14/21 14:30 4 mg STAT ONE Administration Ondansetron HCl Confirm 04/14/21 14:30 Zofran 4 Mg/2 Ml Vial Administered 04/14/21 14:31 Dose 4 mg .ROUTE .STK-MED ONE Lab/Rad Data: Laboratory Result Diagrams 04/14/21 14:00 04/14/21 14:00 Laboratory Results 04/14/21 04/14/21 04/14/21 Range/Units 14:33 14:00 14:00 WBC 7.1 (4.0-10.5) K/mm3 RBC 5.30 (4.1-5.4) M/mm3 Hgb 14.6 (12.0-16.0) gm/dl Hct 45.6 (35-47) % MCV 86.0 (78-100) fl MCH 27.5 (26-32) pg MCHC 32.0 (32-36) g/dl RDW 14.9 H (11.5-14.0) % Plt Count 232 (150-450) K/mm3 MPV 9.4 (7.5-11.0) fl Gran % 75.9 H (36.0-66.0) % Eos # (Auto) 0.05 (0-0.5) Absolute Lymphs (auto) 1.10 (1.0-4.6) Absolute Monos (auto) 0.54 (0.0-1.3) Lymphocytes % 15.6 L (24.0-44.0) % Monocytes % 7.7 (0.0-12.0) % Eosinophils % 0.7 (0.00-5.0) % Basophils % 0.1 (0.0-0.4) % Absolute Granulocytes 5.35 (1.4-6.9) Basophils # 0.01 (0-0.4) Sodium 139 (137-145) mmol/L Potassium 3.7 (3.5-5.1) mmol/L Chloride 104 (98-107) mmol/L Carbon Dioxide 23 (22-30) mmol/L Anion Gap 16.0 H (5-15) MEQ/L BUN 14 (7-17) mg/dL Creatinine 0.70 (0.52-1.04) mg/dL Estimated GFR > 60.0 ML/MIN Glucose 115 H (74-106) mg/dL Calcium 9.2 (8.4-10.2) mg/dL Total Bilirubin 0.70 (0.2-1.3) mg/dL AST 24 (14-36) U/L ALT 17 (0-35) U/L Alkaline Phosphatase 118 (38-126) U/L Serum Total Protein 8.6 H (6.3-8.2) g/dL Albumin 4.6 (3.5-5.0) g/dL Lipase 36 (23-300) U/L Urine Color SEPIDEH (YELLOW) Urine Appearance SLIGHTLY CLOUDY (CLEAR) Urine pH 5.0 (5-6) Ur Specific [place] 1.026 (1.005-1.025) Urine Protein 30 (Negative) Urine Ketones TRACE (NEGATIVE) Urine Blood NEGATIVE (0-5) Say/ul Urine Nitrite NEGATIVE (NEGATIVE) Urine Bilirubin NEGATIVE (NEGATIVE) Urine Urobilinogen 2 (0-1) mg/dL Ur Leukocyte Esterase NEGATIVE (NEGATIVE) Urine WBC (Auto) 3-5 (0-5) /HPF Urine RBC (Auto) 3-5 (0-2) /HPF U Hyaline Cast (Auto) 0-2 (0-2) /LPF U Epithel Cells (Auto) RARE (FEW) /HPF Urine Bacteria (Auto) NONE (NEGATIVE) /HPF Urine Mucus (Auto) SLIGHT (NEGATIVE) /HPF Urine Culture Reflexed NO (NO) Urine Glucose NEGATIVE (NEGATIVE) mg/dL - Progress Progress: improved Progress Note: 04/14/21 17:34 She is given fluids and pain medications, on reevaluation feeling much better. Lab work grossly unremarkable. Chemistry showed some hepatomegaly and s plenomegaly with left-sided renal mass but no acute finding in the right lower quadrant. Do not know the exact cause of her symptoms but have ruled out all the major emergencies. Recommended supportive care and outpatient follow-up. Counseled pt/family regarding: lab results, diagnosis, need for follow-up, rad results - Departure Departure Disposition: Home Clinical Impression: Right sided abdominal pain Condition: Stable Critical Care Time: No Referrals: JACE FRENCH NP [Primary Care Provider] - Follow Up with PCP/3 days Instructions: Acute Abdomen (Belly Pain), Adult (DC) Additional Instructions: Take Tylenol/ibuprofen as needed for pain. Follow-up with primary care for reevaluation. Keep appointment with urology for reevaluation for left kidney mass. Return to ER for worsening pain or if develop fever chills/vomiting or diarrhea.
[2021-04-14 15:08] LABS: Appearance SLIGHTLY CLOUDY (CLEAR); Bilirubin NEGATIVE (NEGATIVE); Blood NEGATIVE Ery/ul (0-5); Epithelial Cells RARE /HPF (FEW); Glucose NEGATIVE (NEGATIVE); Hyaline Casts 0-2 /LPF (0-2); Ketones TRACE (NEGATIVE); Leukocyte Esterase NEGATIVE (NEGATIVE); Mucus SLIGHT /HPF (NEGATIVE); Nitrite NEGATIVE (NEGATIVE); Protein,Urine Dip 30 (Negative); Specific Gravity 1.026 (1.005-1.025); Urobilinogen 2 mg/dL (0-1)
[2021-04-14] MEDS ORDERED: Reglan 10 MG/2 ML IV ONE (15:24)
[2021-04-14] MEDS ORDERED: Reglan 10 MG/2 ML ONE (15:24)
[2021-04-14 16:15] VITALS: O2SAT 97
[2021-04-14 17:36] VITALS: BP 123/83; PULSE 60
--- NOTE | 2021-04-14 19:52 | XRAY ---
Indication: Right lower quadrant pain. Nausea and vomiting. Left renal cancer. Multiple contiguous axial images obtained through the abdomen and pelvis using 80 cc Isovue 370 contrast. Comparison: January 16, 2021. Lung bases again demonstrates pulmonary emphysema without infiltrate or effusion. Heart not enlarged. Noncontrasted stomach and bowel loops are nonobstructed. Normal appendix. No free fluid/air. Right lower kidney again demonstrates a grossly stable 3.1 x 2.9 x 2.9 cm enhancing mass presumed known malignancy. Stable tiny bilateral renal cysts. Spleen remains enlarged measuring 15.3 cm. Again previous cholecystectomy and hysterectomy. Remaining liver, pancreas, spleen, adrenal glands, kidneys, ureters, and bladder are unremarkable. Aorta normal in course and caliber without aneurysm. No pathologic retroperitoneal lymphadenopathy. Osseous structures intact. No suspicious bony lesions. Impression: 1. Stable left renal mass presumed known malignancy. 2. Again incidental pulmonary emphysema, bilateral renal cysts, and splenomegaly. 3. Remaining CT abdomen/pelvis with contrast exam is negative. Comment: Preliminary interpretation made by [facility]. No critical discrepancy.
== END 2021-04-14 17:39 | disposition home or self-care (01) ==
LOC: ED 13:40
DX: R10.31 Right lower quadrant pain (principal); C64.2 Malignant neoplasm of left kidney, except renal pelvis; F17.200 Nicotine dependence, unspecified, uncomplicated; Z79.899 Other long term (current) drug therapy; R50.9 Fever, unspecified; R05.9 Cough, unspecified; R11.2 Nausea with vomiting, unspecified; R19.7 Diarrhea, unspecified
CPT/HCPCS: 36000; 36415; 74177; 80053; 81001; 83690; 85025; 96360; 96374; 96375; 99284; J2270; J2405

== ENCOUNTER 2022-07-26 15:21 | Emergency (ER) | payer OTHER ==
[2022-07-26 15:34] VITALS: BP 107/89; PULSE 121; O2SAT 99
[2022-07-26] MEDS ORDERED: TORAdol 30 mg Injection IM ONE (16:00)
[2022-07-26] MEDS ORDERED: NORCO 5/325 MG PO ONE (16:00)
[2022-07-26] MEDS ORDERED: NORCO 5/325 MG ONE (16:08)
[2022-07-26] MEDS ORDERED: TORAdol 30 mg Injection ONE (16:08)
--- NOTE | 2022-07-26 16:17 | ERPHSYRPT ---
- History of Present Illness Time Seen by Provider: 07/26/22 15:29 Source: patient Exam Limitations: no limitations Patient Subjective Stated Complaint: Pt stepped in a whole on thursday or and injured her right knee Triage Nursing Assessment: Pt brought to the ER by her boyfriend, tachycardic, rates pain 8/, right knee is swollen and bruised, unable to place much weight on it, laying on bed whimpering, pulses normal, skin n/w/d Physician History: 46-year-old female presented to the ER with chief complaint of right knee pain and swelling after she accidentally stepped in a hole few days ago with increa sing pain and swelling about the knee making it difficult weightbearing. No injury anywhere else. Method of Injury: fell Occurred: days ago (3) Quality: sharpness Severity of Pain-Max: severe Severity of Pain-Current: severe Lower Extremities Pain: knee: right Modifying Factors: Improves With: immobilization. Worsens With: movement Allergies/Adverse Reactions: amoxicillin [Amoxicillin] Allergy (Mild, Verified 07/26/22 15:34) codeine [Codeine] Allergy (Mild, Verified 07/26/22 15:34) Home Medications: Fluticasone/Salmeterol [Advair Hfa 115-21 Mcg Inhaler] 1 - 2 puffs IH BID 08/17/16 [History] Aripiprazole 10 mg [Abilify 10 MG] 15 mg PO DAILY 08/20/18 [History] Ibuprofen 800 mg PO Q8HPRN PRN 12/04/20 [History] Sertraline HCl 50 mg [Zoloft 50 mg Tablet] 50 mg PO DAILY 12/04/20 [History] Thyroid,Pork [[place] Thyroid] 75 mg PO DAILY 12/04/20 [History] Levalbuterol Tartrate [Levalbuterol Tartrate Hfa] 1 - 2 puffs IH Q4-6HPRN PRN 04/14/21 [History] Folic Acid 1 mg [Folate 1 mg] 1 mg PO DAILY 07/26/22 [History] Meclizine HCl 25 mg [Antivert 25 mg] 25 mg PO TID 07/26/22 [History] Oxcarbazepine 300 mg [Trileptal 300 MG Tablet] 300 mg PO DAILY 07/26/22 [History] Trazodone HCl 100 mg PO HS 07/26/22 [History] hydrOXYzine pamoate [Hydroxyzine Pamoate] 50 mg PO QID 07/26/22 [History] Hx Tetanus, Diphtheria Vaccination/Date Given: No Hx Influenza Vaccination/Date Given: No Hx Pneumococcal Vaccination/Date Given: No Travel Risk - International Travel Have you traveled outside of the country in past 3 weeks: No - Coronavirus Screening Are you exhibiting any of the following symptoms?: No Close contact with a COVID-19 positive Pt in past 14-21 Days: No - Vaccine Status Have you recieved a Covid-19 vaccination: Yes [employer]: [employer] - Vaccination Dates Date of 2cond Vaccination (if applicable): has not had second dose yet - Review of Systems Constitutional: No Symptoms Ears, Nose, & Throat: No Symptoms Respiratory: No Symptoms Abdominal/Gastrointestinal: No Symptoms Genitourinary Symptoms: No Symptoms Musculoskeletal: Fall, Injury, Joint Pain Neurological: No Symptoms Immunological/Allergic: No Symptoms - Past Medical History Pertinent Past Medical History: Yes Neurological History: Migraines ENT History: No Pertinent History Cardiac History: No Pertinent History Respiratory History: Asthma, COPD, Emphysema Endocrine Medical History: No Pertinent History, Hypothyroidism Musculoskeletal History: No Pertinent History GI Medical History: No Pertinent History History: No Pertinent History Psycho-Social History: Anxiety, Bipolar, Depression, Other Female Reproductive Disorders: Fibroids Other Medical History: benign brain tumor. Current everyday smoker. kidney cancer - Past Surgical History Past Surgical History: Yes Neuro Surgical History: No Pertinent History, Other Cardiac: No Pertinent History Respiratory: No Pertinent History Gastrointestinal: Cholecystectomy Genitourinary: No Pertinent History Musculoskeletal: No Pertinent History Female Surgical History: Hysterectomy, Section Other Surgical History: Tumors from hip, head,and arm removed - Social History Smoking Status: Current every day smoker How long have you smoked: age 11 Exposure to second hand smoke: Yes Drug Use: marijuana Patient Lives Alone: No - Female History Hx Now: No (hysterectomy) - Nursing Vital Signs Nursing Vital Signs: Initial Vital Signs Temperature 99.3 F 07/26/22 15:26 Pulse Rate 121 H 07/26/22 15:26 Blood Pressure 107/89 07/26/22 15:26 O2 Sat by Pulse Oximetry 99 07/26/22 15:26 Pain Scale Pain Intensity 8 - Physical Exam General Appearance: no apparent distress, alert Neck Exam: normal inspection, full range of motion Cardiovascular/Respiratory Exam: normal breath sounds, tachycardia Back Exam: normal inspection Legs Exam: bilateral leg: non-tender, normal inspection, normal range of motion Knees Exam: right knee: bone tenderness (Generalized), pain, soft tissue tenderness, swelling (Suprapatellar), left knee: non-tender, normal inspection, normal range of motion, no evidence of injury Ankle Exam: bilateral ankle: non-tender, normal inspection, normal range of motion, no evidence of injury Neuro/Tendon Exam: normal sensation, normal motor functions, normal tendon functions Mental Status Exam: alert, oriented x 3, cooperative Skin Exam: normal color SpO2 Interpretation: normal SpO2: 99 O2 Delivery: Room Air Ordered Tests: Active Orders 24 hr Category Date Time Status KNEE (MIN 4 VIEW) Stat Exams 07/26/22 15:59 Ordered Medication Summary Discontinued Medications Generic Name Dose Route Start Last Admin Trade Name Parker PRN Reason Stop Dose Admin Hydrocodone Bitart/Acetaminophen 1 tab 07/26/22 16:00 Hydrocodone/Apap 5/325 1 Tab Tablet PO 07/26/22 16:01 STAT ONE Ketorolac Tromethamine 30 mg 07/26/22 16:00 Ketorolac Tromethamine 30 Mg/Ml Inj IM 07/26/22 16:01 STAT ONE - Progress Progress: improved, pain not gone completely, re-examined Progress Note: 07/26/22 16:13 46-year-old is evaluated for right knee pain and swelling after she accidentally stepped in a hole few days ago with moderate to severe sharp pain with progressive worsening and making it difficult weightbearing. Patient does have some bruising around the knee and suprapatellar effusion with positive ballottement sign. Mild generalized bony tenderness. X-rays knee obtained, reviewed by medial obvious fracture dislocation but does have some effusion. Placed in knee immobilizer, given symptomatic treatment for pain in here and to go home and outpatient orthopedics follow-up. Discussed signs symptoms of worsening needing return to ER which she seems understanding. Counseled pt/family regarding: diagnosis, need for follow-up, rad results - Departure Departure Disposition: Home Clinical Impression: Right knee sprain Condition: Stable Critical Care Time: No Referrals: JACE FRENCH NP [Primary Care Provider] - Follow up/PCP as directed (In 2 days for reevaluation) ORTHO - YOVANI DESIR NP [NON-STAFF PHY W/O PRIVILEGES] - Follow up/PCP as directed (In 2 days for reevaluation) Instructions: Knee Sprain (DC), Knee Pain (DC) Additional Instructions: Keep it elevated, intermittent ice application, take pain medications as needed, nonweightbearing until evaluated by orthopedics. Return to ER for any worsening. Prescriptions: Hydrocodone/Acetaminophen [Hydrocodone-Acetamin 5-325 mg] 1 tab PO Q6HPRN PRN 3 Days #12 tablet MDD 4 PRN Reason: Pain Ibuprofen 600 mg PO Q6HPRN PRN 10 Days #20 tablet PRN Reason: Pain
--- NOTE | 2022-07-26 19:47 | XRAY ---
Indication: Pain following fall. Comparison: None 4 view right knee demonstrates nonspecific effusion and mild lateral patella tilting. No other bony, articular, or soft tissue abnormalities.
== END 2022-07-26 16:53 | disposition home or self-care (01) ==
LOC: ED 15:21
DX: S83.91XA Sprain of unspecified site of right knee, initial encounter (principal); W18.42XA Slipping, tripping and stumbling without falling due to stepping into hole or opening, initial encounter; M25.561 Pain in right knee; Z79.891 Long term (current) use of opiate analgesic; Z79.899 Other long term (current) drug therapy; Z72.0 Tobacco use
CPT/HCPCS: 73564; 96372; 99283; J1885; L1830; A9270-GY

== ENCOUNTER 2024-01-17 11:31 | Emergency (ER) | payer OTHER ==
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
[2024-01-17 11:56] VITALS: TEMP 97.3
[2024-01-17] MEDS ORDERED: Sodium Chloride 0.9% 1000 ML 1,000 ML ONE (12:13)
[2024-01-17] MEDS ORDERED: OFIRMEV 100 ML IV ONE (12:13)
[2024-01-17] MEDS: Sodium Chloride 0.9% 1000 ML 1,000 ML IV SCH (12:16)
[2024-01-17] MEDS: OFIRMEV 1,000 MG/100 ML ML IV ONE (12:17)
[2024-01-17 12:18] LABS: BASOPHIL % 0.3 % (0.1-1.2); Basophil (Absolute #) 0.01 x10^3/uL (0.01-0.08); Eosinophil % 0.3 % (0.7-5.8); Eosinophil (Absolute #) 0.01 x10^3/uL (0.04-0.36); Hematocrit 40.1 % (34.1-44.9); Hemoglobin 12.7 g/dL (11.2-15.7); IMMATURE GRAN # 0.01 x10^3u/L (0.001-0.031); IMMATURE GRAN % 0.3 % (0.001-0.429); Lymphocyte (Absolute #) 0.86 x10^3/uL (1.18-3.74); Lymphocytes % 29.8 % (19.3-51.7); Mean Cell Volume 83.5 fL (79.4-94.8); Mean Corpuscular Hemoglobin 26.5 pg (25.6-32.2); Mean Corpuscular Hgb Concent. 31.7 g/dL (32.2-35.5); Mean Platelet Volume 8.7 fL (9.4-12.3); Monocytes % 10.4 % (4.7-12.5); Neutrophil % 58.9 % (34.0-71.1); Platelet Count 261 x10^3/uL (182-369); Red Cell Distribution Width 16.1 % (11.7-14.4); White Blood Count 2.9 x10^3/uL (3.98-10.04)
[2024-01-17 12:32] LABS: ALBUMIN 3.6 g/dL (3.5-5.0); ANION GAP 11.3 MEQ/L (5-15); BILIRUBIN,TOTAL 0.4 mg/dL (0.2-1.3); Calcium 8.9 mg/dL (8.4-10.2); Creatinine 1 0.51 mg/dL (0.52-1.04); EST GLOMERULAR FILTRATION RATE 114.4 ML/MIN; Potassium 3.5 mmol/L (3.5-5.1); Total Protein 7.1 g/dL (6.3-8.2)
--- NOTE | 2024-01-17 13:33 | XRAY ---
CLINICAL HISTORY: fall COMPARISON: NONE. TECHNIQUE: Contiguous, multislice, non-contrast CT scan of the brain was performed in the axial plane in the bony and brain parenchymal windows. One of the following dose reduction techniques were utilized for this exam: Automated exposure control, adjustment of the mA and/or kV according to patient size, and use of iterative reconstruction.Total exam DLP-38768.37; CTDI-65.05. FINDINGS: Normal CT attenuation of both cerebral hemispheres with no areas of abnormal attenuation values. No suspicious space-occupying lesions. No intra or extra-axial collections of fresh blood density. Normal size and shape of the ventricles, basal cisterns, and cortical sulci. The basal ganglia, thalamus, and internal capsule appear normal. Brainstem and pranav appear normal. No shift of midline structures. Unremarkable posterior fossa. Largely preserved cranial calvarial bones. Mucosal thickening of left maxillary antrum, Rest of visualized paranasal sinuses appear clear. Neela bullosae seen in both middle turbinates Mastoid air cells are well-pneumatized on left side. Partial loss of pneumatization of mastoid air cells on right side and replaced with soft tissue densities suggesting otomastoiditis. IMPRESSION: 1. No acute intracranial abnormality. 2. No bony calvarial injury. Electronically Signed by: Ethel Gann MD. (01/17/2024 13:28:40 EDT)
--- NOTE | 2024-01-17 13:37 | XRAY ---
CLINICAL HISTORY: fall COMPARISON: None. TECHNIQUE: Contiguous, multislice, non-contrast CT scan of the cervical spine in the axial plane with multiplanar reconstructions. One of the following dose reduction techniques was utilized for this exam.Automated exposure control, adjustment of the mA and/or kV according to patient size, and use of iterative reconstruction. Total exam DLP-1288.37; CTDI-65.05. FINDINGS: Straightened cervical lordotic curvature suggestive of muscle spasm. No suspicious focal bony lesions. Preserved spinal canal with no retropulsion fragments. No vertebral wedging or collapse. No signs of spinal instability. No significant disc protrusion. Unremarkable craniocervical junction. No paraspinal masses or collection. Visualized lung apices shows fibrotic scarring. IMPRESSION: 1. Straightened cervical lordotic curvature suggestive of muscle spasm. 2. No acute osseous injury. Electronically Signed by: Ethel Gann MD. (01/17/2024 13:33:38 EDT)
--- NOTE | 2024-01-17 13:59 | XRAY ---
CLINICAL HISTORY: fall COMPARISON: NONE. TECHNIQUE: Contiguous, multislice, non-contrast CT scan of the thoracic spine in the axial plane with multiplanar reconstruction was performed. One of the following dose reduction techniques was utilized for this exam.Automated exposure control, adjustment of the mA and/or kV according to patient size, and use of iterative reconstruction. Total exam DLP-81.9 mGy.cm; CTDI-2.14 mGy FINDINGS: Preserved thoracic alignment. No acute fracture or listhesis. No vertebral wedging or collapse. No suspicious focal bony lesions. No significant disc protrusion. Largely preserved neural foramina. No signs of spinal instability. Unremarkable facet and costovertebral joints. Preserved spinal canal with no retropulsed fragments. No paraspinal masses or collection. IMPRESSION: No acute bony abnormality/injury is identified. Electronically Signed by: Ethel Gann MD. (01/17/2024 13:55:18 EDT)
--- NOTE | 2024-01-17 15:12 | XRAY ---
CLINICAL HISTORY: fall COMPARISON: None TECHNIQUE: Contiguous 3.[address] images of the chest were acquired without contrast. Coronal and sagittal reconstructions were obtained. One of the following dose-reduction techniques was utilized for this exam. Automated exposure control, adjustment of the mA and/or kV according to patient size, and use of iterative reconstruction. FINDINGS: Lungs: Bilateral extensive centrilobular and para septal emphysematous changes involving both lungs with upper lobar zonal predilection. bilateral lower lobar subpleural ground-glass attenuation, reticulations with minimal subsegmental consolidative changes, more on the left side, intermingled with thick atelectatic bands. Bilateral minimal apical reticulations, more on the right side. Pleura: Bilateral minimal pleural reaction/thickening with minimal fissural thickening. Mediastinum: Few subcentimetric mediastinal lymph nodes, likely reactive. Hilar Structures: Normal size and configuration, no enlargement. Heart and Great Vessels: Normal heart size and configuration. Mild anterior pericardial effusion reaching up to 1 cm. Ectatic ascending aorta. No significant atherosclerosis or aneurysm. Bones: No fractures or lytic/sclerotic lesions. Normal bone density and alignment. No evidence of rib fractures. Chest Wall: No masses or soft tissue abnormalities. Bilateral multiple axillary lymph nodes, likely reactive, the largest measures 20 x 15 mm. Upper Abdomen: Antonio hepatis metallic clips, likely post-cholecystectomy. Right middle calyceal minute dense stone with suspected bilateral calyceal gravels. splenomegaly. IMPRESSION: 1. No evidence of thoracic cage fractures. 2. Bilateral extensive centrilobular and para septal emphysematous changes involving both lungs with upper lobar zonal predilection. 3. Bilateral lower lobar subpleural ground-glass attenuation, reticulations with minimal subsegmental consolidative changes, more on the left side, intermingled with thick atelectatic bands, likely post-old inflammatory rather than post-traumatic sequela, needs clinical correlation and follow-up. 4. Bilateral minimal pleural reaction/thickening with minimal fissural thickening. 5. Mild anterior pericardial effusion reaching up to 1 cm. 6. A right middle calyceal tiny-dense stone with suspected bilateral calyceal gravels needs better evaluation by CTUT. 7. Splenomegaly. [facility] was called at [phone] at 03:06 PM EST, 01/17/[address] Chaidez was informed regarding the presence of Important Medical Findings on the report. Electronically Signed by: Ethel Gann MD. (01/17/2024 15:07:33 EDT)
--- NOTE | 2024-01-17 15:23 | XRAY ---
CLINICAL HISTORY: fall COMPARISON: None. TECHNIQUE: Non-contrast and contrast-enhanced CT of the abdomen and pelvis was performed, with the following protocol: axial images, and reconstructed coronal and sagittal images, one of the following dose reduction techniques were utilized for this exam: Automated exposure control, adjustment of the mA and/or kV according to patient size, use of iterative reconstruction. Total DLP 144.27 mGy.cm; CTDI- 2.82 mGy. FINDINGS: Liver: Enlarged in size, shape, and density. No focal lesions, cysts, or masses were identified. No evidence of hepatic steatosis or cirrhosis. Gallbladder and Biliary System: The gallbladder is surgically removed with dense clips are seen. Common bile duct is not dilated. Pancreas: Pancreatic head, body, and tail are visualized and appear normal in size and density. No pancreatic masses, cysts, or calcifications were noted. Spleen: Spleen is enlarged in size measuring about 14.8 cm in long axis, shows normal contour and density. No splenic lesions or masses were identified. Kidneys and Adrenal Glands: Both kidneys are normal in size, shape, and position. Cortical thickness is within normal limits. No renal hydronephrosis. Right midcalyceal renal calculus, measuring 4.5 mm, with estimated density 720 HU. Left tiny faint calcific foci likely calculi/ calcifications. Adrenal glands are unremarkable. Bowel Structures: Appendix is not clearly visualized. Abdominal Aorta and Vessels: The abdominal aorta and major branches are patent without evidence of an aneurysm or significant atherosclerosis. Peritoneal and Retroperitoneal Structures: No free fluid or abnormal fluid collections were identified within the abdomen or pelvis. No lymphadenopathy was noted. Pelvis: The uterus is not visualized, likely surgically removed. No adnexal mass. Few bilateral subcentimeteric reactive inguinal lymph nodes seen. Visualized sections of lower chest shows gravitational dependent subpleural groundglass attenuation and fibroatelectatic changes in both lower lobes IMPRESSION: 1. Hepatosplenomegaly. 2. Right renal calculus. 3. Left renal tiny calculi/ calcification. 4. No evidence of acute intra-abdominal pathology. Electronically Signed by: Ethel Gann MD. (01/17/2024 15:19:51 EDT)
--- NOTE | 2024-01-17 15:27 | XRAY ---
CLINICAL HISTORY: fall COMPARISON: None. TECHNIQUE: CT scan of lumbar spine done. Axial images obtained with reformatted coronal and sagittal images and submitted for interpretation. One of the following dose reduction techniques were utilized for this exam: Automated exposure control, adjustment of the mA and/or kV according to patient size, use of iterative reconstruction. Total DLP: 144.27 mGy*cm, CTDI 2.82 mGy. FINDINGS: Vertebrae: Straightened lumbar curve likely due to muscle spasm. Normal alignment of the lumbar vertebrae. No fractures, lytic or sclerotic lesions. Normal bone density without evidence of osteopenia or osteoporosis. Intervertebral Discs: Normal height and signal intensity of the intervertebral discs. No evidence of disc herniation, bulging, or significant degeneration. Spinal Canal and Neural Foramina: Spinal canal is of normal caliber with no evidence of spinal stenosis. Neural foramina are patent bilaterally at all levels. No evidence of nerve root compression. Facet Joints: Normal appearance of the facet joints. No evidence of facet arthropathy or significant degenerative changes. Soft Tissues: Normal appearance of the paraspinal soft tissues. No abnormal masses, fluid collections, or signs of inflammation. IMPRESSION: Straightened lumbar curve likely due to muscle spasm. Otherwise unremarkable CT of the lumbar spine without contrast with no acute findings. Electronically Signed by: Ethel Gann MD. (01/17/2024 15:23:33 EDT)
[2024-01-17 17:40] VITALS: PULSE 72
[2024-01-17 19:54] VITALS: BP 120/80; RESP 31; O2SAT 95
== END 2024-01-17 20:03 | disposition short-term general hospital (02) ==
LOC: ED 11:31
DX: S26.90XA Unspecified injury of heart, unspecified with or without hemopericardium, initial encounter (principal); W10.8XXA Fall (on) (from) other stairs and steps, initial encounter; R51.9 Headache, unspecified; M54.2 Cervicalgia; M54.9 Dorsalgia, unspecified; R07.9 Chest pain, unspecified; R10.9 Unspecified abdominal pain; M25.552 Pain in left hip; E78.5 Hyperlipidemia, unspecified; Z79.899 Other long term (current) drug therapy; Z72.0 Tobacco use
CPT/HCPCS: 36000; 36415; 70450; 71250; 72125; 74176; 76376; 80053; 82150; 83690; 83735; 84484; 85025; 93005; 99285

== ENCOUNTER 2024-03-31 13:01 | Observation (INO) | payer OTHER ==
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
[2024-03-31] MEDS: BABY ASPIRIN 81 MG CHEW PO ONE (13:22)
[2024-03-31] MEDS ORDERED: DUONEB 0.5-3 MG/3 ml Neb IH ONE (13:30)
[2024-03-31] MEDS ORDERED: MORPHINE SULFATE 2 MG INJ ONE (13:35)
[2024-03-31] MEDS ORDERED: Zofran 4 MG/2 ML VIAL ONE (13:35)
[2024-03-31] MEDS: Zofran 4 MG/2 ML VIAL IV ONE (13:35)
[2024-03-31] MEDS: MORPHINE SULFATE 2 MG INJ IV ONE (13:36)
[2024-03-31 13:38] LABS: Absolute Neutrophil Ct (ANC) 2.15 x10^3/uL (1.56-6.13); BASOPHIL % 0.3 % (0.1-1.2); Basophil (Absolute #) 0.01 x10^3/uL (0.01-0.08); Eosinophil (Absolute #) 0 x10^3/uL (0.04-0.36); Hematocrit 37.4 % (34.1-44.9); Hemoglobin 11.8 g/dL (11.2-15.7); IMMATURE GRAN # 0.02 x10^3u/L (0.001-0.031); IMMATURE GRAN % 0.6 % (0.001-0.429); Lymphocytes % 30.8 % (19.3-51.7); Mean Cell Volume 82.6 fL (79.4-94.8); Mean Corpuscular Hgb Concent. 31.6 g/dL (32.2-35.5); Mean Platelet Volume 8.5 fL (9.4-12.3); Monocyte (Absolute #) 0.29 x10^3/uL (0.24-0.86); Monocytes % 8.1 % (4.7-12.5); Neutrophil % 60.2 % (34.0-71.1); Platelet Count 316 x10^3/uL (182-369); Red Blood Count 4.53 x10^6/uL (3.93-5.22); Red Cell Distribution Width 15.7 % (11.7-14.4); White Blood Count 3.6 x10^3/uL (3.98-10.04)
[2024-03-31] MEDS: DUONEB 0.5-3 MG/3 ml Neb IH ONE (13:45)
[2024-03-31] MEDS ORDERED: Sterile H2O 10 ml IJ ONE (13:52)
[2024-03-31] MEDS ORDERED: solu-MEDROL ONE (13:52)
[2024-03-31 13:56] LABS: ALBUMIN 3.3 g/dL (3.5-5.0); ANION GAP 9.9 MEQ/L (5-15); BILIRUBIN,TOTAL 0.2 mg/dL (0.2-1.3); Calcium 9.1 mg/dL (8.4-10.2); Creatinine 1 0.58 mg/dL (0.52-1.04); EST GLOMERULAR FILTRATION RATE 110.9 ML/MIN; Potassium 4.1 mmol/L (3.5-5.1); Total Protein 6.9 g/dL (6.3-8.2)
[2024-03-31] MEDS: solu-MEDROL 125 MG, Sterile H2O 10 ml 2 ML IV ONE (13:58)
[2024-03-31 14:03] LABS: INR 0.97 (0.8-3.0); PROTIME 10.6 SECONDS (9.4-12.5)
[2024-03-31 14:06] LABS: D-DIMER QUANTITATIVE 1.15 mg/L (0.0-0.50)
[2024-03-31 14:08] LABS: NT PRO BNPII 110 pg/mL (<300); TROPONIN < 0.012 ng/mL (0.000-0.033)
[2024-03-31 14:51] LABS: INFLUENZA A NEGATIVE (NEGATIVE); INFLUENZA B NEGATIVE (NEGATIVE); RESPIRATORY SYNCTIAL VIRUS NEGATIVE (NEGATIVE); SARS-CoV-2 Xpert Express NEGATIVE (NEGATIVE)
--- NOTE | 2024-03-31 16:53 | XRAY ---
Indication: Chest and back pain. Elevated d-dimer. Multiple contiguous axial images obtained through the chest using 80 cc Isovue 370 contrast and PE protocol. Comparison: January 17, 2024 Good opacification pulmonary arteries to include the lobar and segmental branches. No pulmonary embolus. Heart not enlarged again with small anterior pericardial effusion/thickening. Aorta is normal in course and caliber without aneurysm/dissection. No pathologic mediastinal/hilar lymphadenopathy. Lungs again demonstrates extensive pulmonary emphysema. New moderate bilateral dependent pleural effusions with mild bilateral lobe compressive atelectasis. No suspicious pulmonary mass/nodule or infiltrate. Bony thorax intact. Limited upper abdomen is unremarkable. Impression: 1. Negative pulmonary embolus. 2. New moderate bilateral pleural effusions with bibasilar compressive atelectasis. No cardiomegaly. Rule out noncardiogenic causes. 3. Stable small pericardial effusion/thickening and extensive pulmonary emphysema.
[2024-03-31 18:21] LABS: Appearance Clear (Clear); Bacteria Rare /HPF (None Seen); Bilirubin Negative (Negative); Blood Negative (Negative); Epithelial Cells None Seen /HPF (None Seen); Glucose, Urine Negative (Negative); Hyaline Casts NONE SEEN /LPF (0-2); Ketones Negative (Negative); Leukocyte Esterase Negative (Negative); Nitrite Negative (Negative); Protein,Urine Dip Negative (Negative); Specific Gravity >=1.030 (1.005-1.030); WBC 0-2 /HPF (0-5)
[2024-03-31 18:54] LABS: Amphetamine,Urine NEGATIVE (NEGATIVE); Barbiturate,Urine NEGATIVE (NEGATIVE); Cocaine,Urine NEGATIVE (NEGATIVE); Methadone,Urine NEGATIVE (NEGATIVE); Opiate,Urine POSITIVE (NEGATIVE); PCP,Urine NEGATIVE (NEGATIVE); THC,Urine POSITIVE (NEGATIVE)
[2024-03-31] MEDS ORDERED: TYLENOL 325 MG ONE (20:04)
[2024-03-31] MEDS: TYLENOL 325 MG PO ONE (20:05)
[2024-03-31] MEDS ORDERED: Lasix 40 MG/4 ML ONE (20:25)
[2024-03-31] MEDS: Lasix 40 MG/4 ML IV ONE (20:26)
[2024-03-31] MEDS ORDERED: Zofran 4 MG/2 ML VIAL IV PRN (20:36)
[2024-03-31] MEDS ORDERED: DUONEB 0.5-3 MG/3 ml Neb IH PRN (21:56)
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
[2024-03-31] MEDS ORDERED: DESYREL 50 MG ONE (22:28)
[2024-03-31] MEDS: NON-FORMULARY ITEM (Trazodone Hcl [Trazodone Hcl] 100 MG Tablet) PO SCH (22:31)
[2024-03-31] MEDS: solu-MEDROL IV SCH (22:31)
[2024-03-31 23:34] LABS: Benzodiazepine,Urine NEGATIVE (NEGATIVE)
[2024-04-01] MEDS: TYLENOL 325 MG PO PRN (02:30)
[2024-04-01 07:58] LABS: Hematocrit 37.3 % (34.1-44.9); Hemoglobin 11.3 g/dL (11.2-15.7); Mean Cell Volume 83.6 fL (79.4-94.8); Mean Corpuscular Hemoglobin 25.3 pg (25.6-32.2); Mean Corpuscular Hgb Concent. 30.3 g/dL (32.2-35.5); Mean Platelet Volume 9.2 fL (9.4-12.3); Platelet Count 332 x10^3/uL (182-369); Red Blood Count 4.46 x10^6/uL (3.93-5.22); Red Cell Distribution Width 15.5 % (11.7-14.4); White Blood Count 2.7 x10^3/uL (3.98-10.04)
[2024-04-01 08:35] LABS: ALBUMIN 3.6 g/dL (3.5-5.0); ANION GAP 14.9 MEQ/L (5-15); BILIRUBIN,TOTAL 0.2 mg/dL (0.2-1.3); Calcium 9.2 mg/dL (8.4-10.2); Creatinine 1 0.77 mg/dL (0.52-1.04); EST GLOMERULAR FILTRATION RATE 94.5 ML/MIN; PROCALCITONIN 0.056 ng/mL (0.030-0.080); Potassium 4.4 mmol/L (3.5-5.1); Total Protein 7.2 g/dL (6.3-8.2)
[2024-04-01] MEDS: NON-FORMULARY ITEM PO SCH (09:22)
[2024-04-01] MEDS: solu-MEDROL 40 MG, Sterile H2O 10 ml 1 ML IV SCH (09:23)
--- NOTE | 2024-04-01 09:35 | XRAY ---
Indication: Pleural effusions progression. Short of breath. Cough. Comparison: March 04, 2020 PA/lateral chest again demonstrates COPD with new small left and tiny right effusions. Remaining lungs clear. Heart not enlarged. Bony thorax intact.
[2024-04-01] MEDS ORDERED: THYROID PORK 15 MG PO SCH (10:00)
[2024-04-01] MEDS ORDERED: Lasix 40 MG/4 ML IV SCH (10:00)
--- NOTE | 2024-04-01 12:31 | PCM.NOTE ---
Date and Time: 04/01/24 1217 Subjective Assessment: 04/01/24 48 y/o F with h/o COPD, bipolar disorder, multiple personality disorder, hypothyroidism, polysubstance abuse including tobacco. She was seen in ER and admitted on 03/31/24 for dyspnea and chest pain. Patient has noted about a week of progressive non-productive cough and wheezing, requiring increasing use of her albuterol rescue inhaler. On the night of 03/30, she had the onset of left subcostal burning/stabbing chest pain, described as a "hot metal shannan piercing through my heart", associated with some dizziness, but no nausea, diaphoresis, or dyspnea (at that time.) Pain was severe but intermittent, occurring at rest, not worsened by exertion or relieved by rest, and not relieved by aspirin or Excedrin. She was able to eventually sleep, but awoke with intermittent dyspnea in concert with the chest pain, now with some tightness, still over left subcostal region. Initially she had no relief with her home inhaler, but felt relief from the nebulizer treatment in the ED. She has also recently had some chills and subjective fevers, some sore throat, and increasingly having to use her rescue inhaler. She denies leg edema, early satiety, or PND, but has had orthopnea for some months, ever since she was told she had "fluid around her heart". The orthopnea is not worse currently. She has self-discontinued most of her medications, including her psych medications, because she was worried about interactions and being sleepy. But she remains on her thyroid, inhaler, and Mobic meds. In the ED, she was noted to be hypoxic to the 80s on room air, and was placed on 3L oxygen. She was given Lasix 40, SoluMedrol 125, DuoNeb, morphine, Zofran, and acetaminophen. Currently, she feels that her breathing is much improved. Today she is on 2lNC 94%. Baseline is RA. She states she has multiple personality disorder and feels a new personality is coming on and she is not sure how she is going to react. She does not feel suicidal or homicidal at this time. She lives in a camper with her boyfriend. 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 Psych consulted. She refuses rehab. Hospice/ Pallative care consulted and she refused services at this time. CXR improved today and pleural effusions are minimal. RT to work on weaning O2 today. Procal negative. Trop x3 negative. Advised cessation of drug use. Echo pending. - Review of Systems Constitutional: No Fever, No Chills Eyes: No Symptoms Ears, Nose, & Throat: No Symptoms Respiratory: Short Of Breath, No Cough Cardiac: No Chest Pain, No Edema, No Syncope Abdominal/Gastrointestinal: No Abdominal Pain, No Nausea, No Vomiting, No Diarrhea Genitourinary Symptoms: No Dysuria Musculoskeletal: No Back Pain, No Neck Pain Skin: No Rash Neurological: No Dizziness, No Focal Weakness, No Sensory Changes Psychological: No Symptoms, Depression, Mood Changes Endocrine: No Symptoms Hematologic/Lymphatic: No Symptoms Immunological/Allergic: No Symptoms Objective Exam General Appearance: no apparent distress, alert, thin Neurologic Exam: alert, oriented x 3, cooperative, normal mood/affect, nml cerebellar function, sensation nml, No motor deficits Skin Exam: normal color, warm, dry Eye Exam: PERRL, EOMI, eyes nml inspection Ears, Nose, Throat Exam: normal ENT inspection, pharynx normal, moist mucous membranes Neck Exam: normal inspection, non-tender, supple, full range of motion Respiratory Exam: normal breath sounds, lungs clear, No respiratory distress Cardiovascular Exam: regular rate/rhythm, normal heart sounds Gastrointestinal/Abdomen Exam: soft, No tenderness, No mass Extremity Exam: normal inspection, normal range of motion Back Exam: normal inspection, normal range of motion, No CVA tenderness, No vertebral tenderness Pelvic Exam: deferred Rectal Exam: deferred Objective Data Vital Signs: Vital Signs - 24 hr Temp Pulse Resp BP BP Pulse Ox 04/01/24 07:44 97.2 F 56 L 15 99/56 94 L 04/01/24 07:07 72 16 90 L 04/01/24 05:31 73 16 90 L 04/01/24 04:00 96.9 F 74 16 105/66 95 04/01/24 00:00 97.3 F 66 18 85/53 92 L 03/31/24 22:00 72 16 93 L 03/31/24 21:09 97.1 F 68 16 99/58 97 03/31/24 20:36 97 03/31/24 20:00 69 14 91/66 97 03/31/24 19:45 70 13 91/63 95 03/31/24 19:30 75 17 91/69 96 03/31/24 19:15 78 15 85/54 95 03/31/24 19:00 71 14 99/65 97 03/31/24 18:45 78 15 93/68 95 03/31/24 18:30 75 15 93/67 95 03/31/24 18:15 89 23 90/61 93 L 03/31/24 18:01 76 15 80/66 94 L 03/31/24 17:45 89 26 H 103/68 91 L 03/31/24 17:30 72 15 90/60 96 03/31/24 17:15 80 15 84/60 94 L 03/31/24 17:00 77 14 89/55 95 03/31/24 16:45 72 11 L 83/56 100 03/31/24 16:30 78 14 86/57 96 03/31/24 16:16 80 14 86/55 03/31/24 16:12 84 16 98/64 03/31/24 15:30 87 14 92/61 03/31/24 15:15 81 16 109/67 96 03/31/24 15:00 97 H 13 98/68 97 03/31/24 14:45 83 15 106/67 98 03/31/24 14:30 79 15 112/68 96 03/31/24 14:15 76 18 93/60 96 03/31/24 14:02 93 H 27 H 86/67 91 L 03/31/24 14:00 92 H 20 88/60 81 L 03/31/24 13:47 92 H 18 92 L 03/31/24 13:41 85 22 83/57 92 L 03/31/24 13:40 89 25 H 92 L 03/31/24 13:32 93 L 03/31/24 13:30 93 L 03/31/24 13:07 93/77 93 L 03/31/24 13:02 98.5 F 102 H 16 93/77 94 L Pain Assessment - Last Documented Pain Intensity 0 Pain Scale Used 0-10 Pain Scale Intake and Output: Intake & Output 03/30/24 03/31/24 04/01/24 04/02/24 11:59 11:59 11:59 11:59 Intake Total 1720 Output Total 1999 Balance -280 Weight 43.4 kg Lab Results: Lab Results-Last 24 Hours 03/31/24 03/31/24 03/31/24 Range/Units 05:08 05:08 13:38 WBC Cancelled 3.6 L Corrected WBC (auto) Cancelled RBC Cancelled 4.53 Hgb Cancelled 11.8 Hct Cancelled 37.4 MCV Cancelled 82.6 MCH Cancelled 26.0 MCHC Cancelled 31.6 L RDW Cancelled 15.7 H Plt Count Cancelled 316 MPV Cancelled 8.5 L Gran % 60.2 (34.0-71.1) % Immature Gran % (Auto) 0.6 H (0.001-0.429) % Nucleat RBC Rel Count 0.0 (0.00-0.2) % Eos # (Auto) 0 L (0.04-0.36) x10^3/uL Immature Gran # (Auto) 0.02 (0.001-0.031) x10^3u/L Absolute Lymphs (auto) 1.10 L (1.18-3.74) x10^3/uL Absolute Monos (auto) 0.29 (0.24-0.86) x10^3/uL Absolute Nucleated RBC 0.00 (0.00-0.012) x10^3u/L Lymphocytes % 30.8 (19.3-51.7) % Monocytes % 8.1 (4.7-12.5) % Eosinophils % 0.0 L (0.7-5.8) % Basophils % 0.3 (0.1-1.2) % Absolute Granulocytes 2.15 (1.56-6.13) x10^3/uL Basophils # 0.01 (0.01-0.08) x10^3/uL PT (9.4-12.5) SECONDS INR (0.8-3.0) D-Dimer (0.0-0.50) mg/L Sodium Cancelled Potassium Cancelled Chloride Cancelled Carbon Dioxide Cancelled Anion Gap Cancelled BUN Cancelled Creatinine Cancelled Estimated GFR Cancelled Glucose Cancelled Calcium Cancelled Total Bilirubin (0.2-1.3) mg/dL AST (14-36) U/L ALT (0-35) U/L Alkaline Phosphatase (38-126) U/L Troponin I (0.000-0.033) ng/mL NT-Pro-B Natriuret Pep (<300) pg/mL Serum Total Protein (6.3-8.2) g/dL Albumin (3.5-5.0) g/dL Prealbumin Cancelled Procalcitonin (0.030-0.080) ng/mL Urine Color (Yellow) Urine Appearance (Clear) Urine pH (4.6-8.0) Ur Specific [place] (1.005-1.030) Urine Protein (Negative) Urine Glucose (UA) (Negative) mg/dL Urine Ketones (Negative) Urine Blood (Negative) Urine Nitrite (Negative) Urine Bilirubin (Negative) Urine Urobilinogen (0.2) mg/dL Ur Leukocyte Esterase (Negative) U Hyaline Cast (Auto) (0-2) /LPF Urine Microscopic RBC (0-5) /HPF Urine Microscopic WBC (0-5) /HPF Ur Epithelial Cells (None Seen) /HPF Urine Bacteria (None Seen) /HPF Urine Culture Reflexed (NO) Urine Opiates Level (NEGATIVE) Ur Methadone (NEGATIVE) Urine Barbiturates (NEGATIVE) Ur Phencyclidine (PCP) (NEGATIVE) Urine Amphetamine (NEGATIVE) U Benzodiazepine Level (NEGATIVE) Urine Cocaine (NEGATIVE) Urine Marijuana (THC) (NEGATIVE) Influenza Type A Ag (NEGATIVE) Influenza Type B Ag (NEGATIVE) RSV (PCR) (NEGATIVE) SARS-CoV-2 (PCR) (NEGATIVE) Slides for Path Review Cancelled 03/31/24 03/31/24 03/31/24 Range/Units 13:38 13:38 13:38 WBC Corrected WBC (auto) RBC Hgb Hct MCV MCH MCHC RDW Plt Count MPV Gran % (34.0-71.1) % Immature Gran % (Auto) (0.001-0.429) % Nucleat RBC Rel Count (0.00-0.2) % Eos # (Auto) (0.04-0.36) x10^3/uL Immature Gran # (Auto) (0.001-0.031) x10^3u/L Absolute Lymphs (auto) (1.18-3.74) x10^3/uL Absolute Monos (auto) (0.24-0.86) x10^3/uL Absolute Nucleated RBC (0.00-0.012) x10^3u/L Lymphocytes % (19.3-51.7) % Monocytes % (4.7-12.5) % Eosinophils % (0.7-5.8) % Basophils % (0.1-1.2) % Absolute Granulocytes (1.56-6.13) x10^3/uL Basophils # (0.01-0.08) x10^3/uL PT 10.6 (9.4-12.5) SECONDS INR 0.97 (0.8-3.0) D-Dimer 1.15 H* (0.0-0.50) mg/L Sodium 135 Potassium 4.1 Chloride 106 Carbon Dioxide 23 Anion Gap 9.9 BUN 17 Creatinine 0.58 Estimated GFR 110.9 Glucose 108 H Calcium 9.1 Total Bilirubin 0.20 (0.2-1.3) mg/dL AST 26 (14-36) U/L ALT 15 (0-35) U/L Alkaline Phosphatase 145 H (38-126) U/L Troponin I < 0.012 (0.000-0.033) ng/mL NT-Pro-B Natriuret Pep 110 (<300) pg/mL Serum Total Protein 6.9 (6.3-8.2) g/dL Albumin 3.3 L (3.5-5.0) g/dL Prealbumin Procalcitonin (0.030-0.080) ng/mL Urine Color (Yellow) Urine Appearance (Clear) Urine pH (4.6-8.0) Ur Specific [place] (1.005-1.030) Urine Protein (Negative) Urine Glucose (UA) (Negative) mg/dL Urine Ketones (Negative) Urine Blood (Negative) Urine Nitrite (Negative) Urine Bilirubin (Negative) Urine Urobilinogen (0.2) mg/dL Ur Leukocyte Esterase (Negative) U Hyaline Cast (Auto) (0-2) /LPF Urine Microscopic RBC (0-5) /HPF Urine Microscopic WBC (0-5) /HPF Ur Epithelial Cells (None Seen) /HPF Urine Bacteria (None Seen) /HPF Urine Culture Reflexed (NO) Urine Opiates Level (NEGATIVE) Ur Methadone (NEGATIVE) Urine Barbiturates (NEGATIVE) Ur Phencyclidine (PCP) (NEGATIVE) Urine Amphetamine (NEGATIVE) U Benzodiazepine Level (NEGATIVE) Urine Cocaine (NEGATIVE) Urine Marijuana (THC) (NEGATIVE) Influenza Type A Ag (NEGATIVE) Influenza Type B Ag (NEGATIVE) RSV (PCR) (NEGATIVE) SARS-CoV-2 (PCR) (NEGATIVE) Slides for Path Review 03/31/24 03/31/24 03/31/24 Range/Units 14:00 18:00 18:01 WBC Corrected WBC (auto) RBC Hgb Hct MCV MCH MCHC RDW Plt Count MPV Gran % (34.0-71.1) % Immature Gran % (Auto) (0.001-0.429) % Nucleat RBC Rel Count (0.00-0.2) % Eos # (Auto) (0.04-0.36) x10^3/uL Immature Gran # (Auto) (0.001-0.031) x10^3u/L Absolute Lymphs (auto) (1.18-3.74) x10^3/uL Absolute Monos (auto) (0.24-0.86) x10^3/uL Absolute Nucleated RBC (0.00-0.012) x10^3u/L Lymphocytes % (19.3-51.7) % Monocytes % (4.7-12.5) % Eosinophils % (0.7-5.8) % Basophils % (0.1-1.2) % Absolute Granulocytes (1.56-6.13) x10^3/uL Basophils # (0.01-0.08) x10^3/uL PT (9.4-12.5) SECONDS INR (0.8-3.0) D-Dimer (0.0-0.50) mg/L Sodium Potassium Chloride Carbon Dioxide Anion Gap BUN Creatinine Estimated GFR Glucose Calcium Total Bilirubin (0.2-1.3) mg/dL AST (14-36) U/L ALT (0-35) U/L Alkaline Phosphatase (38-126) U/L Troponin I < 0.012 (0.000-0.033) ng/mL NT-Pro-B Natriuret Pep (<300) pg/mL Serum Total Protein (6.3-8.2) g/dL Albumin (3.5-5.0) g/dL Prealbumin Procalcitonin (0.030-0.080) ng/mL Urine Color Yellow (Yellow) Urine Appearance Clear (Clear) Urine pH 6.0 (4.6-8.0) Ur Specific [place] >=1.030 A (1.005-1.030) Urine Protein Negative (Negative) Urine Glucose (UA) Negative (Negative) mg/dL Urine Ketones Negative (Negative) Urine Blood Negative (Negative) Urine Nitrite Negative (Negative) Urine Bilirubin Negative (Negative) Urine Urobilinogen 1.0 A (0.2) mg/dL Ur Leukocyte Esterase Negative (Negative) U Hyaline Cast (Auto) NONE SEEN (0-2) /LPF Urine Microscopic RBC 3-5 (0-5) /HPF Urine Microscopic WBC 0-2 (0-5) /HPF Ur Epithelial Cells None Seen (None Seen) /HPF Urine Bacteria Rare A (None Seen) /HPF Urine Culture Reflexed NO (NO) Urine Opiates Level (NEGATIVE) Ur Methadone (NEGATIVE) Urine Barbiturates (NEGATIVE) Ur Phencyclidine (PCP) (NEGATIVE) Urine Amphetamine (NEGATIVE) U Benzodiazepine Level (NEGATIVE) Urine Cocaine (NEGATIVE) Urine Marijuana (THC) (NEGATIVE) Influenza Type A Ag NEGATIVE (NEGATIVE) Influenza Type B Ag NEGATIVE (NEGATIVE) RSV (PCR) NEGATIVE (NEGATIVE) SARS-CoV-2 (PCR) NEGATIVE (NEGATIVE) Slides for Path Review 03/31/24 03/31/24 04/01/24 Range/Units 18:01 21:15 04:00 WBC 2.7 L Corrected WBC (auto) RBC 4.46 Hgb 11.3 Hct 37.3 MCV 83.6 MCH 25.3 L MCHC 30.3 L RDW 15.5 H Plt Count 332 MPV 9.2 L Gran % (34.0-71.1) % Immature Gran % (Auto) (0.001-0.429) % Nucleat RBC Rel Count (0.00-0.2) % Eos # (Auto) (0.04-0.36) x10^3/uL Immature Gran # (Auto) (0.001-0.031) x10^3u/L Absolute Lymphs (auto) (1.18-3.74) x10^3/uL Absolute Monos (auto) (0.24-0.86) x10^3/uL Absolute Nucleated RBC (0.00-0.012) x10^3u/L Lymphocytes % (19.3-51.7) % Monocytes % (4.7-12.5) % Eosinophils % (0.7-5.8) % Basophils % (0.1-1.2) % Absolute Granulocytes (1.56-6.13) x10^3/uL Basophils # (0.01-0.08) x10^3/uL PT (9.4-12.5) SECONDS INR (0.8-3.0) D-Dimer (0.0-0.50) mg/L Sodium Potassium Chloride Carbon Dioxide Anion Gap BUN Creatinine Estimated GFR Glucose Calcium Total Bilirubin (0.2-1.3) mg/dL AST (14-36) U/L ALT (0-35) U/L Alkaline Phosphatase (38-126) U/L Troponin I < 0.012 (0.000-0.033) ng/mL NT-Pro-B Natriuret Pep (<300) pg/mL Serum Total Protein (6.3-8.2) g/dL Albumin (3.5-5.0) g/dL Prealbumin Procalcitonin (0.030-0.080) ng/mL Urine Color (Yellow) Urine Appearance (Clear) Urine pH (4.6-8.0) Ur Specific [place] (1.005-1.030) Urine Protein (Negative) Urine Glucose (UA) (Negative) mg/dL Urine Ketones (Negative) Urine Blood (Negative) Urine Nitrite (Negative) Urine Bilirubin (Negative) Urine Urobilinogen (0.2) mg/dL Ur Leukocyte Esterase (Negative) U Hyaline Cast (Auto) (0-2) /LPF Urine Microscopic RBC (0-5) /HPF Urine Microscopic WBC (0-5) /HPF Ur Epithelial Cells (None Seen) /HPF Urine Bacteria (None Seen) /HPF Urine Culture Reflexed (NO) Urine Opiates Level POSITIVE A (NEGATIVE) Ur Methadone NEGATIVE (NEGATIVE) Urine Barbiturates NEGATIVE (NEGATIVE) Ur Phencyclidine (PCP) NEGATIVE (NEGATIVE) Urine Amphetamine NEGATIVE (NEGATIVE) U Benzodiazepine Level NEGATIVE (NEGATIVE) Urine Cocaine NEGATIVE (NEGATIVE) Urine Marijuana (THC) POSITIVE A (NEGATIVE) Influenza Type A Ag (NEGATIVE) Influenza Type B Ag (NEGATIVE) RSV (PCR) (NEGATIVE) SARS-CoV-2 (PCR) (NEGATIVE) Slides for Path Review 04/01/24 Range/Units 04:00 WBC Corrected WBC (auto) RBC Hgb Hct MCV MCH MCHC RDW Plt Count MPV Gran % (34.0-71.1) % Immature Gran % (Auto) (0.001-0.429) % Nucleat RBC Rel Count (0.00-0.2) % Eos # (Auto) (0.04-0.36) x10^3/uL Immature Gran # (Auto) (0.001-0.031) x10^3u/L Absolute Lymphs (auto) (1.18-3.74) x10^3/uL Absolute Monos (auto) (0.24-0.86) x10^3/uL Absolute Nucleated RBC (0.00-0.012) x10^3u/L Lymphocytes % (19.3-51.7) % Monocytes % (4.7-12.5) % Eosinophils % (0.7-5.8) % Basophils % (0.1-1.2) % Absolute Granulocytes (1.56-6.13) x10^3/uL Basophils # (0.01-0.08) x10^3/uL PT (9.4-12.5) SECONDS INR (0.8-3.0) D-Dimer (0.0-0.50) mg/L Sodium 138 Potassium 4.4 Chloride 106 Carbon Dioxide 21 L Anion Gap 14.9 BUN 26 H Creatinine 0.77 Estimated GFR 94.5 Glucose 250 H Calcium 9.2 Total Bilirubin 0.20 (0.2-1.3) mg/dL AST 54 H (14-36) U/L ALT 38 H (0-35) U/L Alkaline Phosphatase 196 H (38-126) U/L Troponin I (0.000-0.033) ng/mL NT-Pro-B Natriuret Pep (<300) pg/mL Serum Total Protein 7.2 (6.3-8.2) g/dL Albumin 3.6 (3.5-5.0) g/dL Prealbumin 13.00 L Procalcitonin 0.056 (0.030-0.080) ng/mL Urine Color (Yellow) Urine Appearance (Clear) Urine pH (4.6-8.0) Ur Specific [place] (1.005-1.030) Urine Protein (Negative) Urine Glucose (UA) (Negative) mg/dL Urine Ketones (Negative) Urine Blood (Negative) Urine Nitrite (Negative) Urine Bilirubin (Negative) Urine Urobilinogen (0.2) mg/dL Ur Leukocyte Esterase (Negative) U Hyaline Cast (Auto) (0-2) /LPF Urine Microscopic RBC (0-5) /HPF Urine Microscopic WBC (0-5) /HPF Ur Epithelial Cells (None Seen) /HPF Urine Bacteria (None Seen) /HPF Urine Culture Reflexed (NO) Urine Opiates Level (NEGATIVE) Ur Methadone (NEGATIVE) Urine Barbiturates (NEGATIVE) Ur Phencyclidine (PCP) (NEGATIVE) Urine Amphetamine (NEGATIVE) U Benzodiazepine Level (NEGATIVE) Urine Cocaine (NEGATIVE) Urine Marijuana (THC) (NEGATIVE) Influenza Type A Ag (NEGATIVE) Influenza Type B Ag (NEGATIVE) RSV (PCR) (NEGATIVE) SARS-CoV-2 (PCR) (NEGATIVE) Slides for Path Review Radiology Exams: Radiology Procedures Category Date Time Status CHEST 2 VIEWS (PA AND LAT) Routine Exams 04/01/24 07:47 Completed CHEST WITH CONTRAST [CT] Stat Exams 03/31/24 14:11 Completed ECHO W/2D AND DOPPLER [US] Routine Exams 04/01/24 07:49 Ordered Multi-Disciplinary Progress Notes: Multi-Disciplinary Progress Notes 04/01/24 12:07 Case Management Note by Deidre Del Rio IF OXYGEN NEEDED AT DC- PATIENT WOULD LIKE TO USE [facility]. ORDER FORM PLACED ON CHART FOR WEEKEND Initialized on 04/01/24 12:07 - END OF NOTE Assessment/Plan (1) Bilateral pleural effusion Current Visit: Yes Status: Acute Assessment & Plan: - as seen on CT chest- Lasix IV gave on admission PA/lateral chest again demonstrates COPD with new small left and tiny right effusions. Remaining lungs clear. Heart not enlarged. Bony thorax intact. - CXR 04/01/24: PA/lateral chest again demonstrates COPD with new small left and tiny right effusions. Remaining lungs clear. Heart not enlarged. Bony thorax intact. - Procal negative Code(s): J90 - PLEURAL EFFUSION, NOT ELSEWHERE CLASSIFIED (2) Shortness of breath Current Visit: Yes Status: Acute Assessment & Plan: - on 2lNC- 96% - BL RA - Dyspnea improved today Code(s): R06.02 - SHORTNESS OF BREATH (3) D-dimer, elevated Current Visit: Yes Status: Acute Assessment & Plan: - CT negative for PE - D-Dimer 1.15 Code(s): R79.89 - OTHER SPECIFIED ABNORMAL FINDINGS OF BLOOD CHEMISTRY (4) Chest pain Current Visit: No Status: Acute Assessment & Plan: - Trops x3 negative - Echo - CT shows pericardial effusion- pt states this is chronic - 2:2 BL pleural effusions- CP resolved today Code(s): R07.9 - CHEST PAIN, UNSPECIFIED (5) Feeling hopeless Current Visit: Yes Status: Acute Assessment & Plan: - psych consult - denies suicidal or homicidal ideation Code(s): R45.89 - OTHER SYMPTOMS AND SIGNS INVOLVING EMOTIONAL STATE (6) Multiple personality disorder Current Visit: Yes Status: Chronic Assessment & Plan: - currently not taking meds - psych consult Code(s): F44.81 - DISSOCIATIVE IDENTITY DISORDER (7) Bipolar 1 disorder, depressed Current Visit: Yes Status: Chronic Assessment & Plan: - currently not taking meds - psych consult (8) Tetrahydrocannabinol (THC) dependence Current Visit: Yes Status: Chronic Assessment & Plan: - advised cessation Code(s): F12.20 - CANNABIS DEPENDENCE, UNCOMPLICATED (9) Pericardial effusion Current Visit: Yes Status: Chronic Assessment & Plan: - as seenon CT - Chronic per pt - Echo Code(s): I31.39 - OTHER PERICARDIAL EFFUSION (NONINFLAMMATORY) (10) Non-compliance Current Visit: Yes Status: Acute Assessment & Plan: - non-compliant with most meds - Psych consult Code(s): Z91.199 - PT NONCOMPL WITH OTHER MED TRTMT AND REGIMEN D/T UNSP REASON (11) Underweight Current Visit: Yes Status: Chronic Assessment & Plan: - Protein high ensure with meals - Nutrition not available today. VTE: Lovenox Next of kin: Robin Allen [phone] D/C plan: tomorrow Code status: Full Code(s): R63.6 - UNDERWEIGHT
[2024-04-01] MEDS: DESYREL 50 MG PO SCH (21:18)
[2024-04-02 04:10] VITALS: RESP 16
[2024-04-02 05:57] LABS: Hematocrit 38.1 % (34.1-44.9); Hemoglobin 11.6 g/dL (11.2-15.7); Mean Cell Volume 84.9 fL (79.4-94.8); Mean Corpuscular Hemoglobin 25.8 pg (25.6-32.2); Mean Corpuscular Hgb Concent. 30.4 g/dL (32.2-35.5); Mean Platelet Volume 9.3 fL (9.4-12.3); Platelet Count 413 x10^3/uL (182-369); Red Blood Count 4.49 x10^6/uL (3.93-5.22); Red Cell Distribution Width 15.9 % (11.7-14.4); White Blood Count 7.1 x10^3/uL (3.98-10.04)
[2024-04-02 06:11] LABS: ALBUMIN 3.3 g/dL (3.5-5.0); ANION GAP 10.4 MEQ/L (5-15); BILIRUBIN,TOTAL 0.3 mg/dL (0.2-1.3); Calcium 8.9 mg/dL (8.4-10.2); Creatinine 1 0.67 mg/dL (0.52-1.04); EST GLOMERULAR FILTRATION RATE 107.1 ML/MIN; Potassium 4.5 mmol/L (3.5-5.1); Total Protein 6.8 g/dL (6.3-8.2)
[2024-04-02] MEDS: ENOXAPARIN SODIUM SQ SCH (09:23)
--- NOTE | 2024-04-02 11:08 | PCM.NOTE ---
Date and Time: 04/02/24 1103 Subjective Assessment: 04/01/24 48 y/o F with h/o COPD, bipolar disorder, multiple personality disorder, hypothyroidism, polysubstance abuse including tobacco. She was seen in ER and admitted on 03/31/24 for dyspnea and chest pain. Patient has noted about a week of progressive non-productive cough and wheezing, requiring increasing use of her albuterol rescue inhaler. On the night of 03/30, she had the onset of left subcostal burning/stabbing chest pain, described as a "hot metal shannan piercing through my heart", associated with some dizziness, but no nausea, diaphoresis, or dyspnea (at that time.) Pain was severe but intermittent, occurring at rest, not worsened by exertion or relieved by rest, and not relieved by aspirin or Excedrin. She was able to eventually sleep, but awoke with intermittent dyspnea in concert with the chest pain, now with some tightness, still over left subcostal region. Initially she had no relief with her home inhaler, but felt relief from the nebulizer treatment in the ED. She has also recently had some chills and subjective fevers, some sore throat, and increasingly having to use her rescue inhaler. She denies leg edema, early satiety, or PND, but has had orthopnea for some months, ever since she was told she had "fluid around her heart". The orthopnea is not worse currently. She has self-discontinued most of her medications, including her psych medications, because she was worried about interactions and being sleepy. But she remains on her thyroid, inhaler, and Mobic meds. In the ED, she was noted to be hypoxic to the 80s on room air, and was placed on 3L oxygen. She was given Lasix 40, SoluMedrol 125, DuoNeb, morphine, Zofran, and acetaminophen. Currently, she feels that her breathing is much improved. Today she is on 2lNC 94%. Baseline is RA. She states she has multiple personality disorder and feels a new personality is coming on and she is not sure how she is going to react. She does not feel suicidal or homicidal at this time. She lives in a camper with her boyfriend. 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 Psych consulted. She refuses rehab. Hospice/ Pallative care consulted and she refused services at this time. CXR improved today and pleural effusions are minimal. RT to work on weaning O2 today. Procal negative. Trop x3 negative. Advised cessation of drug use. Echo pending. 04/02/24 Pt resting in bed. She is feeling better and RA 97%. She is ready to d/c today. Echo results pending, can f/u OP for results. She reports she has no food at home and call made to case management. Psych consulted yesterday and they developed a safety plan with pt. She denies suicidal or homicidal ideation. She is ok to d/c from their perspective. Advised pt to stop smoking. She denies CP, SOB, abd. pain, N/V/D. Objective Data Vital Signs: Vital Signs - 24 hr Temp Pulse Resp BP Pulse Ox 04/02/24 09:04 71 16 93 L 04/02/24 06:40 96.5 F 65 16 98/60 94 L 04/02/24 04:00 97.1 F 78 16 100/59 95 04/02/24 00:00 97.8 F 85 17 100/65 93 L 04/01/24 20:00 97.2 F 76 16 92/50 95 04/01/24 19:10 71 18 88 L 04/01/24 16:00 97.1 F 87 15 107/73 91 L 04/01/24 12:30 92 L 04/01/24 12:00 97.1 F 79 16 94/54 96 Pain Assessment - Last Documented Pain Intensity 0 Pain Scale Used 0-10 Pain Scale Intake and Output: Intake & Output 03/30/24 03/31/24 04/01/24 04/02/24 11:59 11:59 11:59 11:59 Intake Total 1720 810 Output Total 1999 Balance -280 810 Weight 43.4 kg 44.9 kg Lab Results: Lab Results-Last 24 Hours 04/02/24 04/02/24 Range/Units 05:55 05:55 WBC 7.1 (3.98-10.04) x10^3/uL RBC 4.49 (3.93-5.22) x10^6/uL Hgb 11.6 (11.2-15.7) g/dL Hct 38.1 (34.1-44.9) % MCV 84.9 (79.4-94.8) fL MCH 25.8 (25.6-32.2) pg MCHC 30.4 L (32.2-35.5) g/dL RDW 15.9 H (11.7-14.4) % Plt Count 413 H (182-369) x10^3/uL MPV 9.3 L (9.4-12.3) fL Sodium 141 (135-145) mmol/L Potassium 4.5 (3.5-5.1) mmol/L Chloride 109 H (98-107) mmol/L Carbon Dioxide 26 (22-30) mmol/L Anion Gap 10.4 (5-15) MEQ/L BUN 32 H (7-17) mg/dL Creatinine 0.67 (0.52-1.04) mg/dL Estimated GFR 107.1 ML/MIN Glucose 153 H (74-106) mg/dL Calcium 8.9 (8.4-10.2) mg/dL Total Bilirubin 0.30 (0.2-1.3) mg/dL AST 42 H (14-36) U/L ALT 30 (0-35) U/L Alkaline Phosphatase 171 H (38-126) U/L Serum Total Protein 6.8 (6.3-8.2) g/dL Albumin 3.3 L (3.5-5.0) g/dL Radiology Exams: Radiology Procedures Category Date Time Status CHEST 2 VIEWS (PA AND LAT) Routine Exams 04/01/24 07:47 Completed CHEST WITH CONTRAST [CT] Stat Exams 03/31/24 14:11 Completed ECHO W/2D AND DOPPLER [US] Routine Exams 04/01/24 07:49 Taken Multi-Disciplinary Progress Notes: Multi-Disciplinary Progress Notes 04/01/24 14:05 Respiratory Note by Emily Zuleta PT'S O2 SAT ON 1LPM VIA NASAL CANNULA WHILE AT REST WAS 88%. PT'S OXYGEN WAS TURNED BACK UP TO 2LPM VIA NASAL CANNULA. O2 SAT INCREASED UP TO 92%. Initialized on 04/01/24 14:05 - END OF NOTE 04/01/24 13:26 Respiratory Note by Krystal Griffith O2 SAT 92% ON 2LPM. O2 DECREASED TO 1LPM AT THIS TIME. Initialized on 04/01/24 13:26 - END OF NOTE 04/01/24 12:35 Case Management Note by Deidre Del Rio FROM [facility] CHECKING TO SEE WHAT PALLIATIVE CARE ACCEPTS MEDICAID- ONCE THIS IS KNOWN THEN WILL SEND REFERRAL TO PALLIATE CARE AND UPDATE PATIENT Initialized on 04/01/24 12:35 - END OF NOTE 04/01/24 12:30 Case Management Note by Deidre Del Rio Addendum entered by Deidre Del Rio 04/01/24 12:53: PATIENT ALSO GIVEN A[facility] HANDOUT Original Note: REFERRAL CALLED TO ACO- THEY ARE FAMILIAR WITH PATIENT Initialized on 04/01/24 12:30 - END OF NOTE 04/01/24 12:29 Case Management Note by Deidre Del Rio PATIENT DENIES ANY CURRENT ABUSE OR UNSAFE RELATIONSHIPS Initialized on 04/01/24 12:29 - END OF NOTE 04/01/24 12:27 Case Management Note by Deidre Del Rio REFERRAL FAXED TO LOCATED WITHIN [facility]. THEY WILL NEED NOTIFIED AT TIME OF DC AT [phone]. THEY WILL NEED FAXED THE DC INSTRUCTIONS, DC MED LIST AND DC SUMMARY TO [phone] Initialized on 04/01/24 12:27 - END OF NOTE 04/01/24 12:27 Case Management Note by Deidre Del Rio REFERRAL FAXED TO [facility] Initialized on 04/01/24 12:27 - END OF NOTE 04/01/24 12:09 Case Management Note by Deidre Del Rio PATIENT VOICED SHE LIVES WITH HER EX BOYFRIEND WHO IS WITH HER ALL THE TIME AT HOME. THEY LIVES IN A CAMPER BUT HAVE ALL UTLITIES. EX BOYFRIENDS ASSISTS HER WITH HER ADLS WHEN SHE ASKS HIM TO. 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 SHE VOICED SHE HAS TROUBLE GETTING UP AND DOWN FROM THE TOILET AT HOME. PATIENT REFUSING TO GO TO SNF FOR CARE. SHE IS NOT EVEN INTERESTED IN A SHORT TERM REHAB STAY. SHE WISHES TO RETURN HOME AT TIME OF DC WITH HIM TO ASSIST HER. PATIENT REPORTS THEY STRUGGLE WITH GROCERIES AT TIMES BUT USES FOOD PANTRIES AND HAS RECEIVED HELP FROM ACO BEFORE. SHE ALSO STRUGGLES WITH TRANSPORTATION BUT VOICED SHE DOES NOT LIKE THE MEDICAID TRANSPORT. SHE ALSO STATED SHE DOES NOT HAVE MONEY TO PRIVATE PAY RIDE SOLUT[employer]. SHE VOICED HER SON OR HIS SIG OTHER WOULD BE HER TRANSPORT HOME. THIS VOCATIONAL REHABILITATION TECHNICIAN APPROACHED PATIENT ABOUT HOSPICE/PALLIATE CARE- ROLANDOIVA IN HOUSE- TRE AND BRIDGETTE S/W HER ABOUT THOSE OPTIONS. PATIENT IS NOT READY FOR HOSPICE AT THIS TIME. WILL SEND REFERRAL FOR PALLIATIVE CARE. WILL TRY TO SEND REFERRAL TO A (ONLY LOCAL MEDICAID HHC) HOWEVER UNSURE IF PHYSICAL THERAPY ALONE IS ENOUGH. PATIENT NOTIFIED AND AGREEABLE TO THE ABOVE. TRE'S NUMBER ALSO PLACED IN DC INSTRUCTIONS FOR PATIENT IF NEEDED. WILL SEND REFERRAL TO ACO AND THRIVE WELL. Initialized on 04/01/24 12:09 - END OF NOTE 04/01/24 12:07 Case Management Note by Deidre Del Rio IF OXYGEN NEEDED AT DC- PATIENT WOULD LIKE TO USE [facility]. ORDER FORM PLACED ON CHART FOR WEEKEND Initialized on 04/01/24 12:07 - END OF NOTE Assessment/Plan (1) Bilateral pleural effusion Current Visit: Yes Status: Acute Code(s): J90 - PLEURAL EFFUSION, NOT ELSEWHERE CLASSIFIED (2) Shortness of breath Current Visit: Yes Status: Acute Code(s): R06.02 - SHORTNESS OF BREATH (3) D-dimer, elevated Current Visit: Yes Status: Acute Code(s): R79.89 - OTHER SPECIFIED ABNORMAL FINDINGS OF BLOOD CHEMISTRY (4) Chest pain Current Visit: No Status: Acute Code(s): R07.9 - CHEST PAIN, UNSPECIFIED (5) Feeling hopeless Current Visit: Yes Status: Acute Code(s): R45.89 - OTHER SYMPTOMS AND SIGNS INVOLVING EMOTIONAL STATE (6) Multiple personality disorder Current Visit: Yes Status: Chronic Code(s): F44.81 - DISSOCIATIVE IDENTITY DISORDER (7) Bipolar 1 disorder, depressed Current Visit: Yes Status: Chronic (8) Tetrahydrocannabinol (THC) dependence Current Visit: Yes Status: Chronic Code(s): F12.20 - CANNABIS DEPENDENCE, UNCOMPLICATED (9) Pericardial effusion Current Visit: Yes Status: Chronic Code(s): I31.39 - OTHER PERICARDIAL EFFUSION (NONINFLAMMATORY) (10) Non-compliance Current Visit: Yes Status: Acute Code(s): Z91.199 - PT NONCOMPL WITH OTHER MED TRTMT AND REGIMEN D/T UNSP REASON (11) Underweight Current Visit: Yes Status: Chronic Code(s): R63.6 - UNDERWEIGHT
--- NOTE | 2024-04-02 11:12 | PCM.DS ---
Discharge Summary Date of Admission: 03/31/24 20:29 Date of Discharge: 04/02/24 Admitting Physician: ROSA MARIA PERRY MD Consults: Consults on Case 04/01/24 11:26 Consult,Isaac [Psychiatric Consult] STAT Primary Care Provider: GEREMIAS WHEAT Allergies Allergies amoxicillin [Amoxicillin] Allergy (Mild, Verified 03/31/24 13:15) codeine [Codeine] Allergy (Mild, Verified 03/31/24 13:15) Hospital Summary - Hospital Course Hospital Course: 04/01/24 48 y/o F with h/o COPD, bipolar disorder, multiple personality disorder, hypothyroidism, polysubstance abuse including tobacco. She was seen in ER and admitted on 03/31/24 for dyspnea and chest pain. Patient has noted about a week of progressive non-productive cough and wheezing, requiring increasing use of her albuterol rescue inhaler. On the night of 03/30, she had the onset of left subcostal burning/stabbing chest pain, described as a "hot metal shannan piercing through my heart", associated with some dizziness, but no nausea, diaphoresis, or dyspnea (at that time.) Pain was severe but intermittent, occurring at rest, not worsened by exertion or relieved by rest, and not relieved by aspirin or Excedrin. She was able to eventually sleep, but awoke with intermittent dyspnea in concert with the chest pain, now with some tightness, still over left subcostal region. Initially she had no relief with her home inhaler, but felt relief from the nebulizer treatment in the ED. She has also recently had some chills and subjective fevers, some sore throat, and increasingly having to use her rescue inhaler. She denies leg edema, early satiety, or PND, but has had orthopnea for some months, ever since she was told she had "fluid around her heart". The orthopnea is not worse currently. She has self-discontinued most of her medications, including her psych medications, because she was worried about interactions and being sleepy. But she remains on her thyroid, inhaler, and Mobic meds. In the ED, she was noted to be hypoxic to the 80s on room air, and was placed on 3L oxygen. She was given Lasix 40, SoluMedrol 125, DuoNeb, morphine, Zofran, and acetaminophen. Currently, she feels that her breathing is much improved. Today she is on 2lNC 94%. Baseline is RA. She states she has multiple personality disorder and feels a new personality is coming on and she is not sure how she is going to react. She does not feel suicidal or homicidal at this time. She lives in a camper with her boyfriend. 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 Psych consulted. She refuses rehab. Hospice/ Pallative care consulted and she refused services at this time. CXR improved today and pleural effusions are minimal. RT to work on weaning O2 today. Procal negative. Trop x3 negative. Advised cessation of drug use. Echo pending. 04/02/24 Pt resting in bed. She is feeling better and RA 97%. She is ready to d/c today. Echo results pending, can f/u OP for results. She reports she has no food at home and call made to case management. Psych consulted yesterday and they developed a safety plan with pt. She denies suicidal or homicidal ideation. She is ok to d/c from their perspective. Advised pt to stop smoking. She denies CP, SOB, abd. pain, N/V/D. - Vitals & Intake/Output Vital Signs: Vital Signs Temperature 96.5 F 04/02/24 06:40 Pulse Rate 71 04/02/24 09:04 Respiratory Rate 16 04/02/24 09:04 Blood Pressure 98/60 04/02/24 06:40 O2 Sat by Pulse Oximetry 93 L 04/02/24 09:04 Intake & Output: Intake & Output 03/30/24 03/31/24 04/01/24 04/02/24 11:59 11:59 11:59 11:59 Intake Total 1720 810 Output Total 2000 Balance -280 810 Weight 43.4 kg 44.9 kg - Lab Result Diagrams: 04/02/24 05:55 04/02/24 05:55 Lab Results-Last 24 Hrs: Lab Results-Last 24 Hours 04/02/24 04/02/24 Range/Units 05:55 05:55 WBC 7.1 (3.98-10.04) x10^3/uL RBC 4.49 (3.93-5.22) x10^6/uL Hgb 11.6 (11.2-15.7) g/dL Hct 38.1 (34.1-44.9) % MCV 84.9 (79.4-94.8) fL MCH 25.8 (25.6-32.2) pg MCHC 30.4 L (32.2-35.5) g/dL RDW 15.9 H (11.7-14.4) % Plt Count 413 H (182-369) x10^3/uL MPV 9.3 L (9.4-12.3) fL Sodium 141 (135-145) mmol/L Potassium 4.5 (3.5-5.1) mmol/L Chloride 109 H (98-107) mmol/L Carbon Dioxide 26 (22-30) mmol/L Anion Gap 10.4 (5-15) MEQ/L BUN 32 H (7-17) mg/dL Creatinine 0.67 (0.52-1.04) mg/dL Estimated GFR 107.1 ML/MIN Glucose 153 H (74-106) mg/dL Calcium 8.9 (8.4-10.2) mg/dL Total Bilirubin 0.30 (0.2-1.3) mg/dL AST 42 H (14-36) U/L ALT 30 (0-35) U/L Alkaline Phosphatase 171 H (38-126) U/L Serum Total Protein 6.8 (6.3-8.2) g/dL Albumin 3.3 L (3.5-5.0) g/dL - Radiology Exams Ordered Rad Exams-Entire Visit: Radiology Procedures Category Date Time Status CHEST 2 VIEWS (PA AND LAT) Routine Exams 04/01/24 07:47 Completed CHEST WITH CONTRAST [CT] Stat Exams 03/31/24 14:11 Completed ECHO W/2D AND DOPPLER [US] Routine Exams 04/01/24 07:49 Taken - Procedures and Test Procedures and Tests throughout Hospitalization: Therapy Orders & Screens 03/31/24 13:30 Respiratory Therapy Assessment DAILY Comment: 03/31/24 20:36 EKG REPEAT IN AM Comment: Oxygen Nasal Cannula 2 lpm Comment: Respiratory Therapy Consult ONCE Comment: Reason For Exam: 03/31/24 22:34 Respiratory Therapy Assessment DAILY Comment: Diagnosis: chest pain, shortness of breath 04/01/24 12:30 RT Miscellaneous Order ROUTINE Comment: Physician Instructions: Reason For Exam: wean O2- baseline RA Diagnosis: chest pain, shortness of breath Discharge Exam General Appearance: no apparent distress, alert, thin Neurologic Exam: alert, oriented x 3, cooperative, normal mood/affect, nml cerebellar function, sensation nml, No motor deficits Eye Exam: PERRL, EOMI, eyes nml inspection Ears, Nose, Throat Exam: normal ENT inspection, pharynx normal, moist mucous membranes Neck Exam: normal inspection, non-tender, supple, full range of motion Respiratory Exam: normal breath sounds, lungs clear, No respiratory distress Cardiovascular Exam: regular rate/rhythm, normal heart sounds Gastrointestinal/Abdomen Exam: soft, No tenderness, No mass Pelvic Exam: deferred Rectal Exam: deferred Back Exam: normal inspection, normal range of motion, No CVA tenderness, No vertebral tenderness Extremity Exam: normal inspection, normal range of motion Skin Exam: normal color, warm, dry Final Diagnosis/Problem List - Final Discharge Diagnosis/Problem (1) Bilateral pleural effusion Current Visit: Yes Status: Acute Code(s): J90 - PLEURAL EFFUSION, NOT ELSEWHERE CLASSIFIED (2) Shortness of breath Current Visit: Yes Status: Acute Code(s): R06.02 - SHORTNESS OF BREATH (3) D-dimer, elevated Current Visit: Yes Status: Acute Code(s): R79.89 - OTHER SPECIFIED ABNORMAL FINDINGS OF BLOOD CHEMISTRY (4) Chest pain Current Visit: No Status: Acute Code(s): R07.9 - CHEST PAIN, UNSPECIFIED (5) Feeling hopeless Current Visit: Yes Status: Acute Code(s): R45.89 - OTHER SYMPTOMS AND SIGNS INVOLVING EMOTIONAL STATE (6) Multiple personality disorder Current Visit: Yes Status: Chronic Code(s): F44.81 - DISSOCIATIVE IDENTITY DISORDER (7) Bipolar 1 disorder, depressed Current Visit: Yes Status: Chronic (8) Tetrahydrocannabinol (THC) dependence Current Visit: Yes Status: Chronic Code(s): F12.20 - CANNABIS DEPENDENCE, UNCOMPLICATED (9) Pericardial effusion Current Visit: Yes Status: Chronic Code(s): I31.39 - OTHER PERICARDIAL EFFUSION (NONINFLAMMATORY) (10) Non-compliance Current Visit: Yes Status: Acute Code(s): Z91.199 - PT NONCOMPL WITH OTHER MED TRTMT AND REGIMEN D/T UNSP REASON (11) Underweight Current Visit: Yes Status: Chronic Assessment & Plan: (1) Bilateral pleural effusion Current Visit: Yes Status: Acute Assessment & Plan: - as seen on CT chest- Lasix IV gave on admission PA/lateral chest again demonstrates COPD with new small left and tiny right effusions. Remaining lungs clear. Heart not enlarged. Bony thorax intact. - CXR 04/01/24: PA/lateral chest again demonstrates COPD with new small left and tiny right effusions. Remaining lungs clear. Heart not enlarged. Bony thorax intact. - Procal negative Code(s): J90 - PLEURAL EFFUSION, NOT ELSEWHERE CLASSIFIED (2) Shortness of breath Current Visit: Yes Status: Acute Assessment & Plan: - on 2lNC- 96% - BL RA - Dyspnea improved today 04/02 - RA 92% Code(s): R06.02 - SHORTNESS OF BREATH (3) D-dimer, elevated Current Visit: Yes Status: Acute Assessment & Plan: - CT negative for PE - D-Dimer 1.15 Code(s): R79.89 - OTHER SPECIFIED ABNORMAL FINDINGS OF BLOOD CHEMISTRY (4) Chest pain Current Visit: No Status: Acute Assessment & Plan: - Trops x3 negative - Echo - CT shows pericardial effusion- pt states this is chronic - 2:2 BL pleural effusions- CP resolved today Code(s): R07.9 - CHEST PAIN, UNSPECIFIED (5) Feeling hopeless Current Visit: Yes Status: Acute Assessment & Plan: - psych consult- made safety plan and ok to d/c- f/u OP - denies suicidal or homicidal ideation Code(s): R45.89 - OTHER SYMPTOMS AND SIGNS INVOLVING EMOTIONAL STATE (6) Multiple personality disorder Current Visit: Yes Status: Chronic Assessment & Plan: - currently not taking meds - psych consult Code(s): F44.81 - DISSOCIATIVE IDENTITY DISORDER (7) Bipolar 1 disorder, depressed Current Visit: Yes Status: Chronic Assessment & Plan: - currently not taking meds - psych consult (8) Tetrahydrocannabinol (THC) dependence Current Visit: Yes Status: Chronic Assessment & Plan: - advised cessation Code(s): F12.20 - CANNABIS DEPENDENCE, UNCOMPLICATED (9) Pericardial effusion Current Visit: Yes Status: Chronic Assessment & Plan: - as seenon CT - Chronic per pt - Echo Code(s): I31.39 - OTHER PERICARDIAL EFFUSION (NONINFLAMMATORY) (10) Non-compliance Current Visit: Yes Status: Acute Assessment & Plan: - non-compliant with most meds - Psych consult Code(s): Z91.199 - PT NONCOMPL WITH OTHER MED TRTMT AND REGIMEN D/T UNSP REASON (11) Underweight Current Visit: Yes Status: Chronic Assessment & Plan: - Protein high ensure with meals - Nutrition not available today. Code(s): R63.6 - UNDERWEIGHT - Discharge Discharge Date: 04/02/24 Disposition: Home, Self-Care Condition: Fair Prescriptions: Continue Trazodone HCl 100 mg PO HS Thyroid,Pork [[place] Thyroid] 15 mg PO DAILY Albuterol Sulfate [Proair Respiclick] 2 puffs IH QID Meloxicam 15 mg [Meloxicam 15 MG] 15 mg PO DAILY Additional Instructions: A REFERRAL WAS SENT TO [facility]- [facility] THEY CAN ASSIST YOU. THEY WILL CALL YOU TO ARRANGE A TIME TO COME SEE YOU. IF YOU NEED ANY THING YOU CAN CALL THEM AT [phone] CASE MANAGEMENT WILL ALSO SEND A REFERRAL TO PALLIATIVE CARE- CASE MANAGEMENT WILL CALL YOU THURSDAY TO TELL YOU WHO THAT IS THRU. THEY CAN ALSO UPDATE YOU ON THE STATUS OF [facility] REFERRAL ABOVE. A REFERRAL WAS SENT TO [facility] TO SEE IF YOU QUALIFY FOR GOVERNMENT ASSISTANCE WITH MEALS/TRANSPORTATION/IN HOME ASSISTANCE. YOU CAN CALL THEM AT [phone] A REFERRAL WAS ALSO SENT TO JACQUELINE IN THE [facility] DEPARTMENT YOU CAN REACH TRE (LADY WHO MET WITH YOU IN THE HOSPITAL) WITH [facility] AT [phone] Follow up with: GEREMIAS WHEAT [Primary Care Provider] -
[2024-04-02 13:42] VITALS: BP 103/73; PULSE 73; TEMP 97.3; O2SAT 94
== END 2024-04-02 14:21 | disposition home health service (06) ==
LOC: ED 13:01 → MED SURG 20:29
PROVIDERS: ADMIT Internal Medicine; ATTEND Internal Medicine
DX: J90 Pleural effusion, not elsewhere classified (principal); R06.02 Shortness of breath; Z59.82 Transportation insecurity; R79.89 Other specified abnormal findings of blood chemistry; R07.9 Chest pain, unspecified; R45.89 Other symptoms and signs involving emotional state; F44.81 Dissociative identity disorder; F31.9 Bipolar disorder, unspecified; F12.20 Cannabis dependence, uncomplicated; F17.200 Nicotine dependence, unspecified, uncomplicated; I31.39 Other pericardial effusion (noninflammatory); J44.1 Chronic obstructive pulmonary disease with (acute) exacerbation; Z91.199 Patient's noncompliance with other medical treatment and regimen due to unspecified reason; R63.6 Underweight; E03.9 Hypothyroidism, unspecified; Z79.899 Other long term (current) drug therapy
CPT/HCPCS: 0241U; 36000; 36415; 71046; 71260; 80053; 80307; 81001; 83880; 84134; 84145; 84484; 85025; 85027; 85379; 85610; 93005; 93041; 93306; 94640; 94760; 96374; 96375; 99285; 99291; 93268; J1650; J1940; J2270; J2405; J2919; Q3014; A9270-GY; G0378

== ENCOUNTER 2024-04-29 00:06 | Inpatient (IN) | payer OTHER ==
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
[2024-04-29] MEDS ORDERED: ROCEPHIN 1 GM / 100 ML NaCl 1 GM/100 ML IVPB IV ONE (00:25)
[2024-04-29] MEDS ORDERED: Sodium Chloride 0.9% 1000 ML 1,000 ML ONE ×2 (00:25→02:02)
[2024-04-29] MEDS ORDERED: PROVENTIL 2.5 MG/3 ML NEB IH ONE (00:28)
[2024-04-29] MEDS: Sodium Chloride 0.9% 1000 ML 1,000 ML IV STA ×2 (00:34→02:03)
[2024-04-29] MEDS: ROCEPHIN 1 GM / 100 ML NaCl 1 GM/100 ML IVPB IV ONE (00:34)
[2024-04-29 00:41] LABS: VBG BASE EXCESS -2.2 (-2.0-2.0); VBG CARBOXYHEMOGLOBIN 5.5 % T HGB (0.0-6.9); VBG HCO3- 20.6 meq/L (22-28); VBG HEMOGLOBIN 12.6; VBG POTASSIUM 3.6 (3.5-5.1); VBG pH 7.46 (7.32-7.42)
[2024-04-29] MEDS: PROVENTIL 2.5 MG/3 ML NEB IH ONE (00:47)
[2024-04-29 00:49] LABS: Absolute Neutrophil Ct (ANC) 3.82 x10^3/uL (1.56-6.13); BASOPHIL % 0.4 % (0.1-1.2); Basophil (Absolute #) 0.02 x10^3/uL (0.01-0.08); Eosinophil (Absolute #) 0 x10^3/uL (0.04-0.36); Hematocrit 38.3 % (34.1-44.9); Hemoglobin 11.9 g/dL (11.2-15.7); IMMATURE GRAN # 0.02 x10^3u/L (0.001-0.031); IMMATURE GRAN % 0.4 % (0.001-0.429); Lymphocyte (Absolute #) 0.92 x10^3/uL (1.18-3.74); Mean Cell Volume 82.7 fL (79.4-94.8); Mean Corpuscular Hemoglobin 25.7 pg (25.6-32.2); Mean Corpuscular Hgb Concent. 31.1 g/dL (32.2-35.5); Mean Platelet Volume 8.7 fL (9.4-12.3); Monocyte (Absolute #) 0.33 x10^3/uL (0.24-0.86); Monocytes % 6.5 % (4.7-12.5); Neutrophil % 74.7 % (34.0-71.1); Platelet Count 385 x10^3/uL (182-369); Red Blood Count 4.63 x10^6/uL (3.93-5.22); Red Cell Distribution Width 16.1 % (11.7-14.4); White Blood Count 5.1 x10^3/uL (3.98-10.04)
[2024-04-29 01:01] LABS: HCG SERUM TEST NEGATIVE (NEGATIVE)
[2024-04-29 01:12] LABS: ALBUMIN 3.4 g/dL (3.5-5.0); ALKALINE PHOSPHATASE 132 U/L (38-126); AMYLASE 34 U/L (30-110); ANION GAP 15.4 MEQ/L (5-15); BLOOD UREA NITROGEN 8 mg/dL (7-17); CHLORIDE 105 mmol/L (98-107); Calcium 9.1 mg/dL (8.4-10.2); Carbon Dioxide 18 mmol/L (22-30); Creatinine 1 0.53 mg/dL (0.52-1.04); EST GLOMERULAR FILTRATION RATE 113.3 ML/MIN; ETHYL ALCOHOL < 10 mg/dL (0-10); Glucose 129 mg/dL (74-106); LIPASE 35 U/L (23-300); MAGNESIUM 1.7 mg/dL (1.6-2.3); NT PRO BNPII 150 pg/mL (<300); Potassium 3.5 mmol/L (3.5-5.1); SGOT/AST 27 U/L (14-36); SGPT/ALT 27 U/L (0-35); SODIUM 135 mmol/L (135-145); Total Protein 6.9 g/dL (6.3-8.2)
[2024-04-29] MEDS ORDERED: Zithromax 500 MG/ 250 ML NaCl Premix 500 MG/250 ML IVPB IV ONE (01:15)
[2024-04-29] MEDS ORDERED: CIPROFLOXACIN HCL OP ONE (01:17)
[2024-04-29] MEDS: Zithromax 500 MG/ 250 ML NaCl Premix 500 MG/250 ML IVPB IV STA (01:19)
[2024-04-29] MEDS: CIPROFLOXACIN HCL OP ONE (01:19)
[2024-04-29 01:25] LABS: INFLUENZA A NEGATIVE (NEGATIVE); INFLUENZA B NEGATIVE (NEGATIVE); RESPIRATORY SYNCTIAL VIRUS NEGATIVE (NEGATIVE); SARS-CoV-2 Xpert Express NEGATIVE (NEGATIVE)
--- NOTE | 2024-04-29 02:06 | XRAY ---
CLINICAL HISTORY: daily headaches for years COMPARISON: 17 January 2024. TECHNIQUE: Multiple axial images are obtained from the skull base to the vertex without contrast. CT scan was performed according to ALARA (as low as reasonable achievable). FINDINGS: The brain shows normal morphology, attenuation, and volume for age. No evidence of space occupying lesion, hemorrhage, edema, mass effect, midline shift, extra axial collection, or hydrocephalus is noted. Ventricles, sulci, and basal cisterns are symmetric and normal in size and configuration. The diaz-white matter differentiation is preserved. Visualized paranasal sinuses and mastoid air cells are well aerated. Orbital contents are within normal limits. Bony structures are intact. IMPRESSION: 1. No evidence of acute intracranial abnormality is demonstrated. No other new interval changes since prior study. Electronically Signed by: Dell Cherry MD. (04/29/2024 02:01:49 EDT)
--- NOTE | 2024-04-29 02:15 | XRAY ---
CLINICAL HISTORY: chest pain/dyspnea COMPARISON: 17 January 2024. TECHNIQUE: Contiguous axial images were obtained from the neck base through the upper abdomen following intravenous administration of contrast material. If IV contrast material had not been administered, the likelihood of detecting abnormalities relevant to the patient's condition would have been substantially decreased. In addition, sagittal and coronal reconstructions were performed. CT scan was performed according to ALARA (as low as reasonable achievable). FINDINGS: Diffuse emphysema noted in bilateral lungs. Mild bilateral pleural effusion with passive subsegmental collapse of both lower lobes. Mild encysted effusion is noted involving left oblique fissure. No pulmonary nodules are seen. The central airways are patent. No pneumothorax is seen. No axillary, hilar, or mediastinal adenopathy is identified. The visualized thyroid is unremarkable. The heart, aorta, and pulmonary arteries are of normal size and configuration. No pericardial effusion is identified. Imaged portions of the upper abdomen are unremarkable. No aggressive appearing osseous lesions are identified. IMPRESSION: Diffuse emphysema noted in bilateral lungs-static. Mild bilateral pleural effusion with passive subsegmental collapse of both lower lobes. Mild encysted effusion is noted involving left oblique fissure.-new finding. No pneumothorax. No other new interval changes since prior study. Electronically Signed by: Dell Cherry MD. (04/29/2024 02:11:55 EDT)
[2024-04-29 02:38] LABS: Appearance Clear (Clear); Bacteria Rare /HPF (None Seen); Bilirubin Negative (Negative); Blood Moderate (Negative); Epithelial Cells Rare /HPF (None Seen); Glucose, Urine Negative (Negative); Hyaline Casts NONE SEEN /LPF (0-2); Ketones Negative (Negative); Leukocyte Esterase Negative (Negative); Nitrite Negative (Negative); Protein,Urine Dip Negative (Negative); Specific Gravity >=1.030 (1.005-1.030); Urobilinogen 0.2 mg/dL (0.2); WBC 0-2 /HPF (0-5)
[2024-04-29 02:49] LABS: Amphetamine,Urine NEGATIVE (NEGATIVE); Barbiturate,Urine NEGATIVE (NEGATIVE); Benzodiazepine,Urine NEGATIVE (NEGATIVE); Cocaine,Urine NEGATIVE (NEGATIVE); Methadone,Urine NEGATIVE (NEGATIVE); Opiate,Urine NEGATIVE (NEGATIVE); PCP,Urine NEGATIVE (NEGATIVE); THC,Urine POSITIVE (NEGATIVE)
[2024-04-29] MEDS ORDERED: Nitrostat 0.4 MG Tablet SL PRN (03:21)
[2024-04-29] MEDS ORDERED: Zofran 4 MG/2 ML VIAL IV PRN (03:21)
[2024-04-29 04:57] LABS: ALBUMIN 2.8 g/dL (3.5-5.0); ANION GAP 10.6 MEQ/L (5-15); BILIRUBIN,TOTAL 0.4 mg/dL (0.2-1.3); Calcium 7.8 mg/dL (8.4-10.2); Creatinine 1 0.41 mg/dL (0.52-1.04); EST GLOMERULAR FILTRATION RATE 120.5 ML/MIN; MAGNESIUM 1.6 mg/dL (1.6-2.3); Potassium 3.4 mmol/L (3.5-5.1); Total Protein 6.3 g/dL (6.3-8.2)
[2024-04-29 05:02] LABS: Absolute Neutrophil Ct (ANC) 2.71 x10^3/uL (1.56-6.13); BASOPHIL % 0.3 % (0.1-1.2); Basophil (Absolute #) 0.01 x10^3/uL (0.01-0.08); Eosinophil % 0.3 % (0.7-5.8); Eosinophil (Absolute #) 0.01 x10^3/uL (0.04-0.36); Hematocrit 35.3 % (34.1-44.9); Hemoglobin 10.2 g/dL (11.2-15.7); IMMATURE GRAN # 0.01 x10^3u/L (0.001-0.031); IMMATURE GRAN % 0.3 % (0.001-0.429); Mean Cell Volume 89.8 fL (79.4-94.8); Mean Corpuscular Hgb Concent. 28.9 g/dL (32.2-35.5); Mean Platelet Volume 8.9 fL (9.4-12.3); Monocyte (Absolute #) 0.26 x10^3/uL (0.24-0.86); Monocytes % 6.5 % (4.7-12.5); Neutrophil % 67.6 % (34.0-71.1); Platelet Count 291 x10^3/uL (182-369); Red Blood Count 3.93 x10^6/uL (3.93-5.22); Red Cell Distribution Width 16.4 % (11.7-14.4)
[2024-04-29] MEDS: VENTOLIN COMMON CANISTER IH PRN (05:03)
[2024-04-29] MEDS ORDERED: Robitussin-Dm Syrup PO PRN (05:11)
[2024-04-29] MEDS ORDERED: Tessalon Perles 100 MG PO PRN (05:12)
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
[2024-04-29] MEDS ORDERED: solu-MEDROL ONE (06:29)
[2024-04-29] MEDS ORDERED: Sterile H2O 10 ml IJ ONE (06:29)
[2024-04-29] MEDS: solu-MEDROL 40 MG, Sterile H2O 10 ml 1 ML IV SCH (06:31)
[2024-04-29] MEDS ORDERED: PROVENTIL 2.5 MG/3 ML NEB IH SCH (07:00)
[2024-04-29] MEDS: DUONEB 0.5-3 MG/3 ml Neb IH SCH (07:17)
[2024-04-29] MEDS: Klor Con PO SCH (08:15)
[2024-04-29 08:31] LABS: Slide Review 1 YES
[2024-04-29] MEDS: Sodium Chloride 0.9% 1000 ML 1,000 ML IV SCH (08:32)
[2024-04-29] MEDS: BUSPAR 5 MG PO SCH (09:36)
[2024-04-29] MEDS: MELOXICAM PO SCH (09:37)
[2024-04-29] MEDS: CLARITIN 10 MG PO SCH (09:37)
[2024-04-29] MEDS: NON-FORMULARY ITEM PO SCH (09:37)
[2024-04-29] MEDS: Lasix 20 MG/2 ML IV SCH (09:37)
[2024-04-29] MEDS: ENOXAPARIN SODIUM SQ SCH (09:38)
[2024-04-29] MEDS ORDERED: NON-FORMULARY ITEM (Meloxicam 15 Mg [Meloxicam 15 Mg] 15 MG Tablet) PO SCH (10:00)
[2024-04-29] MEDS ORDERED: THYROID PORK 15 MG PO SCH (10:00)
[2024-04-29] MEDS: Advair Hfa 115/21 Common canister IH SCH (10:45)
[2024-04-29] MEDS ORDERED: MORPHINE SULFATE 2 MG INJ IV PRN (11:25)
[2024-04-29] MEDS: VANCOCIN IV SCH (13:20)
[2024-04-29] MEDS: DEXTROSE IV SCH (13:20)
[2024-04-29] MEDS: WATER IV SCH (13:20)
[2024-04-29] MEDS: PHARMACY DOSING REQUIRED: VANCOMYCIN IV STA (13:28)
--- NOTE | 2024-04-29 13:45 | XRAY ---
CLINICAL HISTORY: PE protocol, CP, SOB COMPARISON: CT chest on the same date is available for comparison 04/29/2024 00:21:41 HOL[employer]LE [employer]IVING. TECHNIQUE: Contiguous 3.[address] angiographic images of the chest were acquired with the administration of intravenous contrast (80ml [id number] [id number]). Coronal and sagittal reconstructions were obtained. One of these 3D techniques was utilized: Maximum Intensity Pixel (MIP), 3D Reconstructed Images, Volume Rendered Images, Surface Shaded Rendering. One of the following dose reduction techniques was utilized for this exam: Automated exposure control, adjustment of the mA and/or kV according to patient size, and use of iterative reconstruction. CTDI: 37.64 mGy, DLP: 281 mGy cm FINDINGS: Aorta: The thoracic aorta is normal in caliber. No evidence of aneurysm, dissection, or significant atherosclerotic changes. Aortic arch and descending thoracic aorta are unremarkable. Pulmonary Arteries: Pulmonary arteries are normal in size and opacification. No evidence of pulmonary embolism. No stenosis or filling defects. Superior Vena Cava (SVC) and Inferior Vena Cava (IVC): Normal opacification and caliber. No evidence of thrombus or obstruction. Coronary Arteries: Coronary arteries are well-opacified. No significant stenosis or atherosclerotic changes. Mediastinum: No mediastinal mass or lymphadenopathy. Normal appearance of the thymus. Heart: Normal size and morphology of the heart. No pericardial effusion. Lungs: Bullous emphysematous changes are seen in bilateral apical regions. Diffuse centrilobular as well as paraseptal emphysematous changes are seen replacing normal visualised lung parenchyma. Moderate bilateral pleural effusion with adjacent subsegmental atelectatic changes. Mild encysted effusion is noted involving left oblique fissure. No pneumothorax is seen. Bones: No fractures or lytic/sclerotic lesions of the visualized bony structures. Normal alignment and bone density. Soft Tissues: Normal appearance of the visualized soft tissues. No abnormal masses or fluid collections. Few bilateral benign axillary lymph nodes are seen. IMPRESSION: 1. Normal CT angiography of the chest with no evidence of significant vascular abnormalities. 2. No evidence of pulmonary embolism. 3. Bilateral emphysematous lung disease. 4. Bilateral pleural effusions with adjacent subsegmental atelectasis. 5. CT chest of same date is available for comparison, showing no interval change. Electronically Signed by: Ethel Gann MD. (04/29/2024 13:40:46 EDT)
--- NOTE | 2024-04-29 16:34 | TM.IN ---
Tele-Medicine Incident Note - Incident Note Tel-Medicine Incident Note: 04/29/24 1631 Possible loculated pleural fluid collection is noted. Recommendation will be for surveillance imaging with outpatient CT chest in 4-6 weeks. Currently this fluid does likely account for the patient's symptoms or presentation, and the risk of pursuing thoracentesis/drainage outweigh the benefits. Will continue to monitor clinical course and reassess risk/benefit and pertinence to the patient's clinical presentation. Telemedicine Encounter - Telemedicine Encounter Telemedicine Encounter: "The entirety of this encounter was performed via Telemedicine" This visit was performed using real-time audio and video connection between my location and thepatients locationwith the assistance of a surrogateat the patients location. Written or verbal consent was obtained from the patient/guardian to perform this [facility]. Any patient questions regarding the telemedicine interaction were answered.
[2024-04-29] MEDS: ROCEPHIN 1 GM / 100 ML NaCl 1 GM/100 ML IVPB IV SCH (21:37)
[2024-04-29] MEDS: DESYREL 50 MG PO SCH (21:37)
[2024-04-29] MEDS ORDERED: Zithromax 500 MG/ 250 ML NaCl Premix 500 MG/250 ML IVPB IV SCH (22:00)
[2024-04-29] MEDS ORDERED: NON-FORMULARY ITEM (Trazodone Hcl [Trazodone Hcl] 100 MG Tablet) PO SCH (22:00)
[2024-04-30] MEDS ORDERED: solu-MEDROL ONE ×2 (00:50→06:07)
[2024-04-30 06:34] LABS: Hematocrit 33.6 % (34.1-44.9); Hemoglobin 10.1 g/dL (11.2-15.7); Mean Cell Volume 84.2 fL (79.4-94.8); Mean Corpuscular Hemoglobin 25.3 pg (25.6-32.2); Mean Corpuscular Hgb Concent. 30.1 g/dL (32.2-35.5); Mean Platelet Volume 9.5 fL (9.4-12.3); Platelet Count 358 x10^3/uL (182-369); Red Blood Count 3.99 x10^6/uL (3.93-5.22); Red Cell Distribution Width 16.1 % (11.7-14.4); White Blood Count 5.9 x10^3/uL (3.98-10.04)
[2024-04-30 06:51] LABS: ALBUMIN 3.2 g/dL (3.5-5.0); ALKALINE PHOSPHATASE 117 U/L (38-126); ANION GAP 13.8 MEQ/L (5-15); BILIRUBIN,TOTAL < 0.10 mg/dL (0.2-1.3); BLOOD UREA NITROGEN 18 mg/dL (7-17); CHLORIDE 112 mmol/L (98-107); Calcium 9.1 mg/dL (8.4-10.2); Carbon Dioxide 21 mmol/L (22-30); Glucose 172 mg/dL (74-106); Potassium 4.9 mmol/L (3.5-5.1); SGOT/AST 24 U/L (14-36); SGPT/ALT 25 U/L (0-35); SODIUM 141 mmol/L (135-145); Total Protein 6.6 g/dL (6.3-8.2)
[2024-04-30] MEDS ORDERED: TYLENOL 325 MG PO PRN (10:42)
[2024-04-30] MEDS: Zofran 4 MG/2 ML VIAL IV PRN (11:07)
--- NOTE | 2024-04-30 11:51 | PCM.NOTE ---
Date and Time: 04/30/24 1144 Subjective Assessment: Ms. Mcgrath is a 48 year-old female with emphysematous COPD, hypothyroidism, HLD, and bipolar disorder. She presented on 04/29/24 with shortness of breath, chest pain, nausea, and diarrhea. She admits to two days of symptoms, with her chest pain being intermittent. Upon arrival to [place], her laboratory data revealed an elevated lactate, hypokalemia, and negative troponin x 3, negative respiratory viral panel, and a negative UA. Chest imaging revealed diffuse emphysema along with small bilateral effusions. On my examination, she is resting comfortably on 2L NC denying any current fevers, chills, nausea, vomiting, diarrhea, syncope, presyncope, visual changes, orthopnea, PND, o dynophagia, dysphagia, chest pain, shortness of breath, belly pain, dysuria, hematuria, melena, hematochezia, or neurological changes. All other systems were reviewed and were negative.Possible loculated pleural fluid collection is noted. Recommendation will be for surveillance imaging with outpatient CT chest in 4-6 weeks. Currently this fluid does likely account for the patient's symptoms or presentation, and the risk of pursuing thoracentesis/drainage outweigh the benefits. Will continue to monitor clinical course and reassess risk/benefit and pertinence to the patient's clinical presentation. Today she is feeling better. She is on 3lNC at 90% today. Lung sounds have improved. CO2 improved. Continue IV antibiotics, steroids, duonebs and Advair for COPD exacerbation. BC x2 and sputum culture pending. ODALIS resolved. - Review of Systems Constitutional: No Fever, No Chills Eyes: No Symptoms Ears, Nose, & Throat: No Symptoms Respiratory: Short Of Breath, No Cough Cardiac: No Chest Pain, No Edema, No Syncope Abdominal/Gastrointestinal: No Abdominal Pain, No Nausea, No Vomiting, No Diarrhea Genitourinary Symptoms: No Dysuria Musculoskeletal: No Back Pain, No Neck Pain Skin: No Rash Neurological: No Dizziness, No Focal Weakness, No Sensory Changes Psychological: No Symptoms Endocrine: No Symptoms Hematologic/Lymphatic: No Symptoms Immunological/Allergic: No Symptoms Objective Exam General Appearance: no apparent distress, alert, cachetic Neurologic Exam: alert, oriented x 3, cooperative, normal mood/affect, nml cerebellar function, sensation nml, No motor deficits Skin Exam: normal color, warm, dry Eye Exam: PERRL, EOMI, eyes nml inspection Ears, Nose, Throat Exam: normal ENT inspection, pharynx normal, moist mucous membranes Neck Exam: normal inspection, non-tender, supple, full range of motion Respiratory Exam: wheezing, No respiratory distress Cardiovascular Exam: regular rate/rhythm, normal heart sounds Gastrointestinal/Abdomen Exam: soft, No tenderness, No mass Extremity Exam: normal inspection, normal range of motion Back Exam: normal inspection, normal range of motion, No CVA tenderness, No ve rtebral tenderness Pelvic Exam: deferred Rectal Exam: deferred Objective Data Vital Signs: Vital Signs - 24 hr Temp Pulse Resp BP Pulse Ox 04/30/24 10:57 81 16 91 L 04/30/24 07:28 97.0 F 74 16 93/56 90 L 04/30/24 07:08 74 16 90 L 04/30/24 03:57 97.5 F 98 H 18 117/74 100 04/30/24 01:08 66 18 94 L 04/30/24 00:00 98.9 F 86 17 99/58 93 L 04/29/24 19:40 98.1 F 77 18 101/56 96 04/29/24 18:32 69 16 90 L 04/29/24 16:00 97.8 F 76 16 94/57 100 04/29/24 15:10 88 18 95 Pain Assessment - Last Documented Pain Intensity 0 Intake and Output: Intake & Output 04/27/24 04/28/24 04/29/24 04/30/24 11:59 11:59 11:59 11:59 Intake Total 60 2080 Balance 60 2080 Weight 43.9 kg Lab Results: Lab Results-Last 24 Hours 04/29/24 04/29/24 04/30/24 Range/Units 12:00 17:25 05:45 WBC (3.98-10.04) x10^3/uL RBC (3.93-5.22) x10^6/uL Hgb (11.2-15.7) g/dL Hct (34.1-44.9) % MCV (79.4-94.8) fL MCH (25.6-32.2) pg MCHC (32.2-35.5) g/dL RDW (11.7-14.4) % Plt Count (182-369) x10^3/uL MPV (9.4-12.3) fL Sodium (135-145) mmol/L Potassium 4.4 D (3.5-5.1) mmol/L Chloride (98-107) mmol/L Carbon Dioxide (22-30) mmol/L Anion Gap (5-15) MEQ/L BUN (7-17) mg/dL Creatinine (0.52-1.04) mg/dL Estimated GFR ML/MIN Glucose (74-106) mg/dL Calcium (8.4-10.2) mg/dL Magnesium 2.1 (1.6-2.3) mg/dL Total Bilirubin (0.2-1.3) mg/dL AST (14-36) U/L ALT (0-35) U/L Alkaline Phosphatase (38-126) U/L Troponin I < 0.012 (0.000-0.033) ng/mL Serum Total Protein (6.3-8.2) g/dL Albumin (3.5-5.0) g/dL 04/30/24 04/30/24 Range/Units 05:45 05:45 WBC 5.9 (3.98-10.04) x10^3/uL RBC 3.99 (3.93-5.22) x10^6/uL Hgb 10.1 L (11.2-15.7) g/dL Hct 33.6 L (34.1-44.9) % MCV 84.2 D (79.4-94.8) fL MCH 25.3 L (25.6-32.2) pg MCHC 30.1 L (32.2-35.5) g/dL RDW 16.1 H (11.7-14.4) % Plt Count 358 (182-369) x10^3/uL MPV 9.5 (9.4-12.3) fL Sodium 141 (135-145) mmol/L Potassium 4.9 (3.5-5.1) mmol/L Chloride 112 H (98-107) mmol/L Carbon Dioxide 21 L (22-30) mmol/L Anion Gap 13.8 (5-15) MEQ/L BUN 18 H (7-17) mg/dL Creatinine 0.60 (0.52-1.04) mg/dL Estimated GFR 110.0 ML/MIN Glucose 172 H (74-106) mg/dL Calcium 9.1 D (8.4-10.2) mg/dL Magnesium (1.6-2.3) mg/dL Total Bilirubin < 0.10 L (0.2-1.3) mg/dL AST 24 (14-36) U/L ALT 25 (0-35) U/L Alkaline Phosphatase 117 (38-126) U/L Troponin I (0.000-0.033) ng/mL Serum Total Protein 6.6 (6.3-8.2) g/dL Albumin 3.2 L (3.5-5.0) g/dL Radiology Exams: Radiology Procedures Category Date Time Status CHEST WITH CONTRAST [CT] Stat Exams 04/29/24 01:31 Completed CHEST WITH CONTRAST [CT] Stat Exams 04/29/24 11:06 Completed HEAD WITHOUT CONTRAST [CT] Stat Exams 04/29/24 01:25 Completed Assessment/Plan (1) COPD with acute exacerbation Current Visit: Yes Status: Acute Assessment & Plan: - Improving - Ceftriaxone, Vancomycin, Steriods, Duonebs, Advair - BCX2 and Sputum culture pending - Incentive spirometer - CBC reviewed Code(s): J44.1 - CHRONIC OBSTRUCTIVE PULMONARY DISEASE W (ACUTE) EXACERBATION (2) Bilateral pleural effusion Current Visit: Yes Status: Acute Assessment & Plan: - Lasix BID - As seen on CT Code(s): J90 - PLEURAL EFFUSION, NOT ELSEWHERE CLASSIFIED (3) Encysted lung fluid Current Visit: Yes Status: Acute Assessment & Plan: - as seen on CT - Will need repeat CT after d/c and f/u with Pulm OP Code(s): J90 - PLEURAL EFFUSION, NOT ELSEWHERE CLASSIFIED (4) Metabolic acidosis Current Visit: Yes Status: Acute Assessment & Plan: - CO2 21- improved- trend Code(s): E87.20 - ACIDOSIS, UNSPECIFIED (5) ODALIS (acute kidney injury) Current Visit: Yes Status: Resolved Assessment & Plan: - IVF gave in ER - resolved - BMP reviewed Code(s): N17.9 - ACUTE KIDNEY FAILURE, UNSPECIFIED (6) Chest pain Current Visit: Yes Status: Resolved Assessment & Plan: - resolved - Trop x3 negative - EKG - TELE - TSH pending - Morphine IV PRN Code(s): R07.9 - CHEST PAIN, UNSPECIFIED (7) Dyspnea Current Visit: Yes Status: Acute Assessment & Plan: - On 3lNC 90% today. - See COPD exacerbation plan above - Flu/COVID/ RSV negative - CT negative for PE Code(s): R06.00 - DYSPNEA, UNSPECIFIED (8) Elevated lactic acid level Current Visit: Yes Status: Resolved Assessment & Plan: - LA on admission 3.2- repeat 1.2 - 2 NS fluid boluses gave in ER and then IVF gave in ER - resolved Code(s): R79.89 - OTHER SPECIFIED ABNORMAL FINDINGS OF BLOOD CHEMISTRY (9) Emphysema lung Current Visit: Yes Status: Chronic Assessment & Plan: - as seen on CT - Chronic THC use Code(s): J43.9 - EMPHYSEMA, UNSPECIFIED (10) Anxiety Current Visit: No Status: Chronic Assessment & Plan: - continue home meds Code(s): F41.9 - ANXIETY DISORDER, UNSPECIFIED (11) Bipolar 1 disorder, depressed Current Visit: No Status: Chronic Assessment & Plan: - continue home meds (12) Depression Current Visit: No Status: Chronic Assessment & Plan: - continue home meds Code(s): F32.9 - MAJOR DEPRESSIVE DISORDER, SINGLE EPISODE, UNSPECIFIED (13) Multiple personality disorder Current Visit: No Status: Chronic Assessment & Plan: - continue home meds Code(s): F44.81 - DISSOCIATIVE IDENTITY DISORDER (14) Tetrahydrocannabinol (THC) dependence Current Visit: No Status: Chronic Assessment & Plan: - advised cessation Code(s): F12.20 - CANNABIS DEPENDENCE, UNCOMPLICATED (15) Chronic headaches Current Visit: Yes Status: Chronic Assessment & Plan: - CT head negative - Pt reports Chronic H/A's for years - Tylenol for pain PRN Code(s): R51.9 - HEADACHE, UNSPECIFIED; G89.29 - OTHER CHRONIC PAIN (16) Underweight Current Visit: No Status: Chronic Assessment & Plan: - Ensure high protein added with meals - BMI 17.7 VTE: Lovenox Next of KIN: Robin Allen, Friend- [phone] D/C plan: 2-3 days Code status: Full Code(s): R63.6 - UNDERWEIGHT
[2024-04-30] MEDS: CIPROFLOXACIN HCL OP SCH (15:46)
[2024-04-30] MEDS: DUONEB 0.5-3 MG/3 ml Neb IH SCH (19:16)
[2024-04-30] MEDS: TROUGH DRUG LEVELS IJ ONE (23:09)
[2024-05-01] MEDS ORDERED: solu-MEDROL ONE ×2 (00:37→06:21)
[2024-05-01 07:03] LABS: Hematocrit 35.7 % (34.1-44.9); Hemoglobin 10.7 g/dL (11.2-15.7); Mean Cell Volume 85.8 fL (79.4-94.8); Mean Corpuscular Hemoglobin 25.7 pg (25.6-32.2); Mean Platelet Volume 9.2 fL (9.4-12.3); Platelet Count 408 x10^3/uL (182-369); Red Blood Count 4.16 x10^6/uL (3.93-5.22); Red Cell Distribution Width 16.5 % (11.7-14.4); White Blood Count 8.9 x10^3/uL (3.98-10.04)
[2024-05-01 07:12] LABS: ALBUMIN 3.1 g/dL (3.5-5.0); ANION GAP 11.3 MEQ/L (5-15); BILIRUBIN,TOTAL 0.1 mg/dL (0.2-1.3); Calcium 9.1 mg/dL (8.4-10.2); Creatinine 1 0.69 mg/dL (0.52-1.04); EST GLOMERULAR FILTRATION RATE 106.3 ML/MIN; Potassium 4.8 mmol/L (3.5-5.1); Total Protein 6.5 g/dL (6.3-8.2)
--- NOTE | 2024-05-01 13:32 | PCM.NOTE ---
Date and Time: 05/01/24 1325 Subjective Assessment: 04/30/24 Ms. Mcgrath is a 48 year-old female with emphysematous COPD, hypothyroidism, HLD, and bipolar disorder. She presented on 04/29/24 with shortness of breath, chest pain, nausea, and diarrhea. She admits to two days of symptoms, with her chest pain being intermittent. Upon arrival to [place], her laboratory data revealed an elevated lactate, hypokalemia, and negative troponin x 3, negative respiratory viral panel, and a negative UA. Chest imaging revealed diffuse emphysema along with small bilateral effusions. On my examination, she is resting comfortably on 2L NC denying any current fevers, chills, nausea, vomiting, diarrhea, syncope, presyncope, visual changes, orthopnea, PND, odynophagia, dysphagia, chest pain, shortness of breath, belly pain, dysuria, hematuria, melena, hematochezia, or neurological changes. All other systems were reviewed and were negative.Possible loculated pleural fluid collection is noted. Recommendation will be for surveillance imaging with outpatient CT chest in 4-6 weeks. Currently this fluid does likely account for the patient's symptoms or presentation, and the risk of pursuing thoracentesis/drainage outweigh the benefits. Will continue to monitor clinical course and reassess risk/benefit and pertinence to the patient's clinical presentation. Today she is feeling better. She is on 3lNC at 90% today. Lung sounds have improved. CO2 improved. Continue IV antibiotics, steroids, duonebs and Advair for COPD exacerbation. BC x2 and sputum culture pending. ODALIS resolved. 05/01/24 Pt resting in bed. Per staff she was up and walking around the unit and in her room yesterday. Pt reports she got up today and did not feel well and had to get back in the bed. She does not feel she is ready to go home today. She no longer wants her IV so this will be d/c'd and meds changed to PO. Labs overall improved. She qualified for home O2 per RT and this will need to be set up tomorrow per case management. She continues to have some SOB and coughing. She denies CP, Abd. pain, N/V/D. - Review of Systems Constitutional: No Fever, No Chills Eyes: No Symptoms Ears, Nose, & Throat: No Symptoms Respiratory: Cough, Short Of Breath Cardiac: No Chest Pain, No Edema, No Syncope Abdominal/Gastrointestinal: No Abdominal Pain, No Nausea, No Vomiting, No Diarrhea Genitourinary Symptoms: No Dysuria Musculoskeletal: No Back Pain, No Neck Pain Skin: No Rash Neurological: No Dizziness, No Focal Weakness, No Sensory Changes Psychological: No Symptoms Endocrine: No Symptoms Hematologic/Lymphatic: No Symptoms Immunological/Allergic: No Symptoms Objective Exam General Appearance: no apparent distress, alert Neurologic Exam: alert, oriented x 3, cooperative, normal mood/affect, nml cerebellar function, sensation nml, motor weakness, No motor deficits Skin Exam: normal color, warm, dry Eye Exam: PERRL, EOMI, eyes nml inspection Ears, Nose, Throat Exam: normal ENT inspection, pharynx normal, moist mucous membranes Neck Exam: normal inspection, non-tender, supple, full range of motion Respiratory Exam: normal breath sounds, lungs clear, No respiratory distress Cardiovascular Exam: regular rate/rhythm, normal heart sounds Gastrointestinal/Abdomen Exam: soft, No tenderness, No mass Extremity Exam: normal inspection, normal range of motion Back Exam: normal inspection, normal range of motion, No CVA tenderness, No vertebral tenderness Pelvic Exam: deferred Rectal Exam: deferred Objective Data Vital Signs: Vital Signs - 24 hr Temp Pulse Resp BP Pulse Ox 05/01/24 12:53 74 18 94 L 05/01/24 12:00 97.6 F 97 H 20 93/57 97 05/01/24 07:51 97.3 F 63 16 95/55 94 L 05/01/24 06:47 62 16 93 L 05/01/24 03:21 96.9 F 64 17 106/57 92 L 04/30/24 23:28 98.0 F 94 H 22 95/57 90 L 04/30/24 20:00 97.9 F 83 17 95/65 95 04/30/24 19:18 88 16 93 L 04/30/24 16:00 97.7 F 85 18 88/50 100 Pain Assessment - Last Documented Pain Intensity 0 Intake and Output: Intake & Output 04/29/24 04/30/24 05/01/24 05/02/24 11:59 11:59 11:59 11:59 Intake Total 60 2080 1832 Output Total 650 Balance 60 2080 1182 Weight 43.9 kg Lab Results: Lab Results-Last 24 Hours 04/30/24 05/01/24 05/01/24 Range/Units 21:19 05:35 05:35 WBC 8.9 (3.98-10.04) x10^3/uL RBC 4.16 (3.93-5.22) x10^6/uL Hgb 10.7 L (11.2-15.7) g/dL Hct 35.7 (34.1-44.9) % MCV 85.8 (79.4-94.8) fL MCH 25.7 (25.6-32.2) pg MCHC 30.0 L (32.2-35.5) g/dL RDW 16.5 H (11.7-14.4) % Plt Count 408 H (182-369) x10^3/uL MPV 9.2 L (9.4-12.3) fL Sodium (135-145) mmol/L Potassium (3.5-5.1) mmol/L Chloride (98-107) mmol/L Carbon Dioxide (22-30) mmol/L Anion Gap (5-15) MEQ/L BUN (7-17) mg/dL Creatinine (0.52-1.04) mg/dL Estimated GFR ML/MIN Glucose (74-106) mg/dL Calcium (8.4-10.2) mg/dL Total Bilirubin (0.2-1.3) mg/dL AST (14-36) U/L ALT (0-35) U/L Alkaline Phosphatase (38-126) U/L Serum Total Protein (6.3-8.2) g/dL Albumin (3.5-5.0) g/dL TSH 3rd Generation 2.142 (0.470-4.680) mIU/L Vancomycin Trough 12.69 (10-20) ug/mL 05/01/24 Range/Units 05:40 WBC (3.98-10.04) x10^3/uL RBC (3.93-5.22) x10^6/uL Hgb (11.2-15.7) g/dL Hct (34.1-44.9) % MCV (79.4-94.8) fL MCH (25.6-32.2) pg MCHC (32.2-35.5) g/dL RDW (11.7-14.4) % Plt Count (182-369) x10^3/uL MPV (9.4-12.3) fL Sodium 142 (135-145) mmol/L Potassium 4.8 (3.5-5.1) mmol/L Chloride 107 (98-107) mmol/L Carbon Dioxide 28 (22-30) mmol/L Anion Gap 11.3 (5-15) MEQ/L BUN 33 H (7-17) mg/dL Creatinine 0.69 (0.52-1.04) mg/dL Estimated GFR 106.3 ML/MIN Glucose 149 H (74-106) mg/dL Calcium 9.1 (8.4-10.2) mg/dL Total Bilirubin 0.10 L (0.2-1.3) mg/dL AST 30 (14-36) U/L ALT 24 (0-35) U/L Alkaline Phosphatase 115 (38-126) U/L Serum Total Protein 6.5 (6.3-8.2) g/dL Albumin 3.1 L (3.5-5.0) g/dL TSH 3rd Generation (0.470-4.680) mIU/L Vancomycin Trough (10-20) ug/mL Multi-Disciplinary Progress Notes: Multi-Disciplinary Progress Notes 05/01/24 08:51 Respiratory Note by Karyn Wills ROOM AIR RESTING SPO2 88%. SPO2 AT REST WITH N/C 3LPM 94% Initialized on 05/01/24 08:51 - END OF NOTE 04/30/24 15:16 Respiratory Note by Karyn Wills PT TAKES NEB TXS PRN AT HOME. B/S DIM AND CLEAR. DUONEBS CHANGED TO TID Initialized on 04/30/24 15:16 - END OF NOTE Assessment/Plan (1) COPD with acute exacerbation Current Visit: Yes Status: Acute Code(s): J44.1 - CHRONIC OBSTRUCTIVE PULMONARY DISEASE W (ACUTE) EXACERBATION (2) Bilateral pleural effusion Current Visit: Yes Status: Acute Code(s): J90 - PLEURAL EFFUSION, NOT ELSEWHERE CLASSIFIED (3) Encysted lung fluid Current Visit: Yes Status: Acute Code(s): J90 - PLEURAL EFFUSION, NOT ELSEWHERE CLASSIFIED (4) Metabolic acidosis Current Visit: Yes Status: Acute Code(s): E87.20 - ACIDOSIS, UNSPECIFIED (5) ODALIS (acute kidney injury) Current Visit: Yes Status: Resolved Code(s): N17.9 - ACUTE KIDNEY FAILURE, UNSPECIFIED (6) Chest pain Current Visit: Yes Status: Resolved Code(s): R07.9 - CHEST PAIN, UNSPECIFIED (7) Dyspnea Current Visit: Yes Status: Acute Code(s): R06.00 - DYSPNEA, UNSPECIFIED (8) Elevated lactic acid level Current Visit: Yes Status: Resolved Code(s): R79.89 - OTHER SPECIFIED ABNORMAL FINDINGS OF BLOOD CHEMISTRY (9) Emphysema lung Current Visit: Yes Status: Chronic Code(s): J43.9 - EMPHYSEMA, UNSPECIFIED (10) Anxiety Current Visit: No Status: Chronic Code(s): F41.9 - ANXIETY DISORDER, UNSPECIFIED (11) Bipolar 1 disorder, depressed Current Visit: No Status: Chronic (12) Depression Current Visit: No Status: Chronic Code(s): F32.9 - MAJOR DEPRESSIVE DISO RDER, SINGLE EPISODE, UNSPECIFIED (13) Multiple personality disorder Current Visit: No Status: Chronic Code(s): F44.81 - DISSOCIATIVE IDENTITY DISORDER (14) Tetrahydrocannabinol (THC) dependence Current Visit: No Status: Chronic Code(s): F12.20 - CANNABIS DEPENDENCE, UNCOMPLICATED (15) Chronic headaches Current Visit: Yes Status: Chronic Code(s): R51.9 - HEADACHE, UNSPECIFIED; G89.29 - OTHER CHRONIC PAIN (16) Underweight Current Visit: No Status: Chronic Assessment & Plan: (1) COPD with acute exacerbation Current Visit: Yes Status: Acute Assessment & Plan: - Improving - Ceftriaxone, Vancomycin, Steriods, Duonebs, Advair - BCX2 and Sputum culture pending - Incentive spirometer - CBC reviewed 05/01 - Meds changed to oral - D/C IV Code(s): J44.1 - CHRONIC OBSTRUCTIVE PULMONARY DISEASE W (ACUTE) EXACERBATION (2) Bilateral pleural effusion Current Visit: Yes Status: Acute Assessment & Plan: - Lasix BID - As seen on CT 05/01 - lasix stopped Code(s): J90 - PLEURAL EFFUSION, NOT ELSEWHERE CLASSIFIED (3) Encysted lung fluid Current Visit: Yes Status: Acute Assessment & Plan: - as seen on CT - Will need OP repeat CT after d/c and f/u with Pulm OP - CBC reviewed Code(s): J90 - PLEURAL EFFUSION, NOT ELSEWHERE CLASSIFIED (4) Metabolic acidosis Current Visit: Yes Status: Acute Assessment & Plan: - CO2 21- improved- trend 05/01 - resolved Code(s): E87.20 - ACIDOSIS, UNSPECIFIED (5) ODALIS (acute kidney injury) Current Visit: Yes Status: Resolved Assessment & Plan: - IVF gave in ER - resolved - BMP reviewed Code(s): N17.9 - ACUTE KIDNEY FAILURE, UNSPECIFIED (6) Chest pain Current Visit: Yes Status: Resolved Assessment & Plan: - resolved - Trop x3 negative - EKG - TELE - TSH pending - Morphine IV PRN Code(s): R07.9 - CHEST PAIN, UNSPECIFIED (7) Dyspnea Current Visit: Yes Status: Acute Assessment & Plan: - On 3lNC 90% today. - See COPD exacerbation plan above - Flu/COVID/ RSV negative - CT negative for PE 05/01 - qualifed for home O2 per RT- will need set up by Case management tomorrow - 3L94% Code(s): R06.00 - DYSPNEA, UNSPECIFIED (8) Elevated lactic acid level Current Visit: Yes Status: Resolved Assessment & Plan: - LA on admission 3.2- repeat 1.2 - 2 NS fluid boluses gave in ER and then IVF gave in ER - resolved Code(s): R79.89 - OTHER SPECIFIED ABNORMAL FINDINGS OF BLOOD CHEMISTRY (9) Emphysema lung Current Visit: Yes Status: Chronic Assessment & Plan: - as seen on CT - Chronic THC use Code(s): J43.9 - EMPHYSEMA, UNSPECIFIED (10) Anxiety Current Visit: No Status: Chronic Assessment & Plan: - continue home meds Code(s): F41.9 - ANXIETY DISORDER, UNSPECIFIED (11) Bipolar 1 disorder, depressed Current Visit: No Status: Chronic Assessment & Plan: - continue home meds (12) Depression Current Visit: No Status: Chronic Assessment & Plan: - continue home meds Code(s): F32.9 - MAJOR DEPRESSIVE DISORDER, SINGLE EPISODE, UNSPECIFIED (13) Multiple personality disorder Current Visit: No Status: Chronic Assessment & Plan: - continue home meds Code(s): F44.81 - DISSOCIATIVE IDENTITY DISORDER (14) Tetrahydrocannabinol (THC) dependence Current Visit: No Status: Chronic Assessment & Plan: - advised cessation Code(s): F12.20 - CANNABIS DEPENDENCE, UNCOMPLICATED (15) Chronic headaches Current Visit: Yes Status: Chronic Assessment & Plan: - CT head negative - Pt reports Chronic H/A's for years - Tylenol for pain PRN Code(s): R51.9 - HEADACHE, UNSPECIFIED; G89.29 - OTHER CHRONIC PAIN (16) Underweight Current Visit: No Status: Chronic Assessment & Plan: - Ensure high protein added with meals - BMI 17.7 VTE: Lovenox Next of KIN: Robin Allen, Friend- [phone] D/C plan:tomorrow Code status: Full Code(s): R63.6 - UNDERWEIGHT Code(s): R63.6 - UNDERWEIGHT
[2024-05-01] MEDS: CEFTIN 500 MG PO SCH (21:54)
[2024-05-01] MEDS: DELTASONE 20 MG PO SCH (21:54)
--- NOTE | 2024-05-02 04:56 | PCM.NOTE ---
Date and Time: 05/02/24 045 Subjective Assessment: Ms. Mcgrath is a 48 year-old female with emphysematous COPD, hypothyroidism, HLD, and bipolar disorder admitted 04/29/24 with dyspnea due to COPD exacerbation. Upon arrival to [place], her laboratory data revealed an elevated lactate, hypokalemia, and negative troponin x 3, negative respiratory viral panel, and a negative UA. Chest imaging revealed diffuse emphysema along with small bilateral effusions. Possible loculated pleural fluid collection is noted. Recommendation will be for surveillance imaging with outpatient CT chest in 4-6 weeks. Currently this fluid does likely account for the patient's symptoms or presentation, and the risk of pursuing thoracentesis/drainage outweigh the benefits. Pre-richey sputum culture showing normal respiratory yasmin. Blood cultures with NGTD. IP treatment with Ceftriaxone, Vancomycin, Steriods, Duonebs, Advair. IV meds d/cd 05/01/24 and patient now on cefuroxime, prednisone, and Cipro. Patient has been qualified for home oxygen. Lab findings now stable with metabolic acidosis and ODALIS resolved. Objective Data Vital Signs: Vital Signs - 24 hr Temp Pulse Resp BP Pulse Ox 05/02/24 04:00 97.9 F 82 18 100/65 96 05/02/24 00:00 98.1 F 93 H 19 106/59 100 05/01/24 20:00 97.8 F 103 H 20 98/65 100 05/01/24 18:53 94 H 18 100 05/01/24 16:00 97.6 F 76 18 95/54 95 05/01/24 12:53 74 18 94 L 05/01/24 12:00 97.6 F 97 H 20 93/57 97 05/01/24 07:51 97.3 F 63 16 95/55 94 L 05/01/24 06:47 62 16 93 L Pain Assessment - Last Documented Pain Intensity 0 Intake and Output: Intake & Output 04/29/24 04/30/24 05/01/24 05/02/24 11:59 11:59 11:59 11:59 Intake Total 60 2080 1832 980 Output Total 650 300 Balance 60 2080 1182 680 Weight 43.9 kg Lab Results: Lab Results-Last 24 Hours 05/01/24 05/01/24 05/01/24 Range/Units 05:35 05:35 05:40 WBC 8.9 (3.98-10.04) x10^3/uL RBC 4.16 (3.93-5.22) x10^6/uL Hgb 10.7 L (11.2-15.7) g/dL Hct 35.7 (34.1-44.9) % MCV 85.8 (79.4-94.8) fL MCH 25.7 (25.6-32.2) pg MCHC 30.0 L (32.2-35.5) g/dL RDW 16.5 H (11.7-14.4) % Plt Count 408 H (182-369) x10^3/uL MPV 9.2 L (9.4-12.3) fL Sodium 142 (135-145) mmol/L Potassium 4.8 (3.5-5.1) mmol/L Chloride 107 (98-107) mmol/L Carbon Dioxide 28 (22-30) mmol/L Anion Gap 11.3 (5-15) MEQ/L BUN 33 H (7-17) mg/dL Creatinine 0.69 (0.52-1.04) mg/dL Estimated GFR 106.3 ML/MIN Glucose 149 H (74-106) mg/dL Calcium 9.1 (8.4-10.2) mg/dL Total Bilirubin 0.10 L (0.2-1.3) mg/dL AST 30 (14-36) U/L ALT 24 (0-35) U/L Alkaline Phosphatase 115 (38-126) U/L Serum Total Protein 6.5 (6.3-8.2) g/dL Albumin 3.1 L (3.5-5.0) g/dL TSH 3rd Generation 2.142 (0.470-4.680) mIU/L Multi-Disciplinary Progress Notes: Multi-Disciplinary Progress Notes 05/01/24 08:51 Respiratory Note by Karyn Wills ROOM AIR RESTING SPO2 88%. SPO2 AT REST WITH N/C 3LPM 94% Initialized on 05/01/24 08:51 - END OF NOTE Assessment/Plan (1) COPD with acute exacerbation Current Visit: Yes Status: Acute Assessment & Plan: -Respiratory notes reviewed, patient qualifies for home oxygen - CM to set up -Antimicrobal history: - Ceftriaxone, Vancomycin -d/cd 05/01/24 -Cefuroxime started 05/01/24 Tameka Bruno Advair - Lab findings reviewed: BCX2 NGTD -Sputum culture pending -pr-richey with norm resp yasmin - Incentive spirometer Code(s): J44.1 - CHRONIC OBSTRUCTIVE PULMONARY DISEASE W (ACUTE) EXACERBATION (2) Bilateral pleural effusion Current Visit: Yes Status: Acute Assessment & Plan: - CT reviewed from 04/29 with bilateral pleural effusions - Lasix BID initially - d/cd on 05/01 Code(s): J90 - PLEURAL EFFUSION, NOT ELSEWHERE CLASSIFIED (3) Encysted lung fluid Current Visit: Yes Status: Acute Assessment & Plan: - CT from 04/29 reviewed noting mild encysted effusion involving left oblique fissure - Will need OP repeat CT after d/c and f/u with Pulm OP Code(s): J90 - PLEURAL EFFUSION, NOT ELSEWHERE CLASSIFIED (4) Metabolic acidosis Current Visit: Yes Status: Acute Assessment & Plan: - resolved Code(s): E87.20 - ACIDOSIS, UNSPECIFIED (5) ODALIS (acute kidney injury) Current Visit: Yes Status: Resolved Assessment & Plan: - IVF in ED -CMP reviewed Code(s): N17.9 - ACUTE KIDNEY FAILURE, UNSPECIFIED (6) Chest pain Current Visit: Yes Status: Resolved Assessment & Plan: - ekg reviewed -Trop reviewed x3 and negative - EKG - TELE - TSH reviewed and WNL - Morphine IV PRN Code(s): R07.9 - CHEST PAIN, UNSPECIFIED (7) Dyspnea Current Visit: Yes Status: Acute Assessment & Plan: - On 3lNC - qualifies for home oxygen - CM to set up - See COPD exacerbation plan above - Flu/COVID/ RSV reviewed and negative - CT negative for PE Code(s): R06.00 - DYSPNEA, UNSPECIFIED (8) Elevated lactic acid level Current Visit: Yes Status: Resolved Assessment & Plan: - Lactic acild level reviewed -LA on admission - 3.2- Fluid bolus of 2L NS - repeat 1.2 Code(s): R79.89 - OTHER SPECIFIED ABNORMAL FINDINGS OF BLOOD CHEMISTRY (9) Emphysema lung Current Visit: Yes Status: Chronic Assessment & Plan: - as seen on CT - Chronic THC use Code(s): J43.9 - EMPHYSEMA, UNSPECIFIED (10) Anxiety Current Visit: No Status: Chronic Assessment & Plan: - continue home meds Code(s): F41.9 - ANXIETY DISORDER, UNSPECIFIED (11) Bipolar 1 disorder, depressed Current Visit: No Status: Chronic Assessment & Plan: - continue home meds (12) Depression Current Visit: No Status: Chronic Assessment & Plan: - continue home meds Code(s): F32.9 - MAJOR DEPRESSIVE DISORDER, SINGLE EPISODE, UNSPECIFIED (13) Multiple personality disorder Current Visit: No Status: Chronic Assessment & Plan: continue home meds Code(s): F44.81 - DISSOCIATIVE IDENTITY DISORDER (14) Tetrahydrocannabinol (THC) dependence Current Visit: No Status: Chronic Assessment & Plan: - advised cessation Code(s): F12.20 - CANNABIS DEPENDENCE, UNCOMPLICATED (15) Underweight Current Visit: No Status: Chronic Assessment & Plan: - Ensure high protein added with meals - BMI 17.7 Code(s): R63.6 - UNDERWEIGHT (16) Chronic headaches Current Visit: Yes Status: Chronic Assessment & Plan: - CT head negative - Pt reports Chronic H/A's for years - Tylenol for pain PRN VTE: Lovenox Next of KIN: Robin Allen, Friend- [phone] D/C plan:tomorrow Code(s): R51.9 - HEADACHE, UNSPECIFIED; G89.29 - OTHER CHRONIC PAIN
[2024-05-02 05:17] LABS: Hemoglobin 10.8 g/dL (11.2-15.7); Mean Cell Volume 85.1 fL (79.4-94.8); Mean Corpuscular Hemoglobin 25.5 pg (25.6-32.2); Mean Platelet Volume 9.2 fL (9.4-12.3); Platelet Count 417 x10^3/uL (182-369); Red Blood Count 4.23 x10^6/uL (3.93-5.22); Red Cell Distribution Width 16.8 % (11.7-14.4); White Blood Count 8.1 x10^3/uL (3.98-10.04)
[2024-05-02 05:50] LABS: ALBUMIN 3.2 g/dL (3.5-5.0); ANION GAP 12.4 MEQ/L (5-15); BILIRUBIN,TOTAL 0.1 mg/dL (0.2-1.3); Creatinine 1 0.59 mg/dL (0.52-1.04); EST GLOMERULAR FILTRATION RATE 110.4 ML/MIN; Potassium 4.9 mmol/L (3.5-5.1); Total Protein 6.5 g/dL (6.3-8.2)
[2024-05-02] MEDS: VITAMIN D2 PO SCH (10:51)
--- NOTE | 2024-05-02 11:09 | PCM.DS ---
Discharge Summary Date of Admission: 04/29/24 03:06 Date of Discharge: 05/02/24 Admitting Physician: ROSSY CONNOR MD Consults: Consults on Case 04/29/24 04:43 Case Management SDOH DC Needs Assessment ROUTINE 04/29/24 07:33 Consult Pulmonology ROUTINE Primary Care Provider: GEREMIAS WHEAT Allergies Allergies amoxicillin [Amoxicillin] Allergy (Mild, Verified 04/29/24 00:10) codeine [Codeine] Allergy (Mild, Verified 04/29/24 00:10) metoprolol Allergy (Verified 04/29/24 00:36) Swelling of Tongue and Lips ranolazine Allergy (Verified 04/29/24 00:36) Swelling of Tongue and Lips Hospital Summary - Hospital Course Hospital Course: Ms. Mcgrath is a 48 year-old female with emphysematous COPD, hypothyroidism, HLD, and bipolar disorder admitted 04/29/24 with dyspnea due to COPD exacerbation. Upon arrival to [place], her laboratory data revealed an elevated lactate, hypokalemia, and negative troponin x 3, negative respiratory viral panel, and a negative UA. Chest imaging revealed diffuse emphysema along with small bilateral effusions. Possible loculated pleural fluid collection is noted. Recommendation will be for surveillance imaging with outpatient CT chest in 4-6 weeks. Currently this fluid does likely account for the patient's symptoms or presentation, and the risk of pursuing thoracentesis/drainage outweigh the benefits. Pre-richey sputum culture showing normal respiratory yasmin. Blood cultures with NGTD. IP treatment with Ceftriaxone, Vancomycin, Steriods, Duonebs, Advair. IV meds d/cd 05/01/24 and patient now on cefuroxime, prednisone, and Cipro. Patient has been qualified for home oxygen and this will be set up prior to discharge. Lab findings now stable with metabolic acidosis and ODALIS resolved. CM will discuss need for groceries and rollator with patient. Patient advised to follow up with pulm regarding loculated pleural fluid collection. Discharge Note New Diagnosis: COPD exacerbation/ New Medications: cefuroxime/medrol dose pack Follow Up: PCP/pulm Results pending: blood/sputum final results Outpatient testing to order: May need repeat CT scan in 4-6 weeks- pulm to decide Latest Assessment & Plan I spent 39 minutes [id number] with the patient on the day of discharge performing discharge exam, discussing hospital stay and discharge instructions with patient and caregivers, preparation of discharge records, prescriptions & referral forms and addressing any questions/concerns the patient had as documented above. (1) COPD with acute exacerbation Current Visit: Yes Status: Acute Assessment & Plan: -Respiratory notes reviewed, patient qualifies for home oxygen - CM to set up -Antimicrobal history: - Ceftriaxone, Vancomycin -d/cd 05/01/24 -Cefuroxime started 05/01/24 Tameka Bruno Advair - Lab findings reviewed: BCX2 NGTD -Sputum culture pending -pr-richey with norm resp yasmin - Incentive spirometer Code(s): J44.1 - CHRONIC OBSTRUCTIVE PULMONARY DISEASE W (ACUTE) EXACERBATION (2) Bilateral pleural effusion Current Visit: Yes Status: Acute Assessment & Plan: - CT reviewed from 04/29 with bilateral pleural effusions - Lasix BID initially - d/cd on 05/01 Code(s): J90 - PLEURAL EFFUSION, NOT ELSEWHERE CLASSIFIED (3) Encysted lung fluid Current Visit: Yes Status: Acute Assessment & Plan: - CT from 04/29 reviewed noting mild encysted effusion involving left oblique fissure - Will need OP repeat CT after d/c and f/u with Pulm OP Code(s): J90 - PLEURAL EFFUSION, NOT ELSEWHERE CLASSIFIED (4) Metabolic acidosis Current Visit: Yes Status: Acute Assessment & Plan: - resolved Code(s): E87.20 - ACIDOSIS, UNSPECIFIED (5) ODALIS (acute kidney injury) Current Visit: Yes Status: Resolved Assessment & Plan: - IVF in ED -CMP reviewed Code(s): N17.9 - ACUTE KIDNEY FAILURE, UNSPECIFIED (6) Chest pain Current Visit: Yes Status: Resolved Assessment & Plan: - ekg reviewed -Trop reviewed x3 and negative - EKG - TELE - TSH reviewed and WNL - Morphine IV PRN Code(s): R07.9 - CHEST PAIN, UNSPECIFIED (7) Dyspnea Current Visit: Yes Status: Acute Assessment & Plan: - On 3lNC - qualifies for home oxygen - CM to set up - See COPD exacerbation plan above - Flu/COVID/ RSV reviewed and negative - CT negative for PE Code(s): R06.00 - DYSPNEA, UNSPECIFIED (8) Elevated lactic acid level Current Visit: Yes Status: Resolved Assessment & Plan: - Lactic acild level reviewed -LA on admission - 3.2- Fluid bolus of 2L NS - repeat 1.2 Code(s): R79.89 - OTHER SPECIFIED ABNORMAL FINDINGS OF BLOOD CHEMISTRY (9) Emphysema lung Current Visit: Yes Status: Chronic Assessment & Plan: - as seen on CT - Chronic THC use Code(s): J43.9 - EMPHYSEMA, UNSPECIFIED (10) Anxiety Current Visit: No Status: Chronic Assessment & Plan: - continue home meds Code(s): F41.9 - ANXIETY DISORDER, UNSPECIFIED (11) Bipolar 1 disorder, depressed Current Visit: No Status: Chronic Assessment & Plan: - continue home meds (12) Depression Current Visit: No Status: Chronic Assessment & Plan: - continue home meds Code(s): F32.9 - MAJOR DEPRESSIVE DISORDER, SINGLE EPISODE, UNSPECIFIED (13) Multiple personality disorder Current Visit: No Status: Chronic Assessment & Plan: continue home meds Code(s): F44.81 - DISSOCIATIVE IDENTITY DISORDER (14) Tetrahydrocannabinol (THC) dependence Current Visit: No Status: Chronic Assessment & Plan: - advised cessation Code(s): F12.20 - CANNABIS DEPENDENCE, UNCOMPLICATED (15) Underweight Current Visit: No Status: Chronic Assessment & Plan: - Ensure high protein added with meals - BMI 17.7 Code(s): R63.6 - UNDERWEIGHT (16) Chronic headaches Current Visit: Yes Status: Chronic Assessment & Plan: - CT head negative - Pt reports Chronic H/A's for years - Tylenol for pain PRN - Vitals & Intake/Output Vital Signs: Vital Signs Temperature 97.4 F 05/02/24 07:51 Pulse Rate 70 05/02/24 10:11 Respiratory Rate 16 05/02/24 10:11 Blood Pressure 106/55 05/02/24 07:51 O2 Sat by Pulse Oximetry 96 05/02/24 10:11 Intake & Output: Intake & Output 04/29/24 04/30/24 05/01/24 05/02/24 11:59 11:59 11:59 11:59 Intake Total 60 2080 1832 1100 Output Total 650 300 Balance 60 2080 1182 800 Weight 43.9 kg - Lab Result Diagrams: 05/02/24 05:11 05/02/24 05:11 Lab Results-Last 24 Hrs: Lab Results-Last 24 Hours 05/02/24 05/02/24 Range/Units 05:11 05:11 WBC 8.1 (3.98-10.04) x10^3/uL RBC 4.23 (3.93-5.22) x10^6/uL Hgb 10.8 L (11.2-15.7) g/dL Hct 36.0 (34.1-44.9) % MCV 85.1 (79.4-94.8) fL MCH 25.5 L (25.6-32.2) pg MCHC 30.0 L (32.2-35.5) g/dL RDW 16.8 H (11.7-14.4) % Plt Count 417 H (182-369) x10^3/uL MPV 9.2 L (9.4-12.3) fL Sodium 139 (135-145) mmol/L Potassium 4.9 (3.5-5.1) mmol/L Chloride 105 (98-107) mmol/L Carbon Dioxide 27 (22-30) mmol/L Anion Gap 12.4 (5-15) MEQ/L BUN 40 H (7-17) mg/dL Creatinine 0.59 (0.52-1.04) mg/dL Estimated GFR 110.4 ML/MIN Glucose 136 H (74-106) mg/dL Calcium 9.0 (8.4-10.2) mg/dL Total Bilirubin 0.10 L (0.2-1.3) mg/dL AST 92 H (14-36) U/L ALT 67 H (0-35) U/L Alkaline Phosphatase 134 H (38-126) U/L Serum Total Protein 6.5 (6.3-8.2) g/dL Albumin 3.2 L (3.5-5.0) g/dL Micro Results-Entire Visit: Microbiology 04/29/24 01:47 Gram Stain - Final Sputum - Aerosol Induced Sputum Culture - Final ORGANISMS ISOLATED ARE CONSISTENT WITH NORMAL RESP YASMIN HEAVY GROWTH, NO PREDOMINANT ORGANISM 04/29/24 00:35 Blood Culture - Preliminary Blood 04/29/24 00:40 Blood Culture - Preliminary Blood - Procedures and Test Procedures and Tests throughout Hospitalization: Therapy Orders & Screens 04/29/24 00:48 Respiratory Therapy Assessment DAILY Comment: 04/29/24 03:21 EKG REPEAT IN AM Comment: Oxygen Nasal Cannula 2 lpm Comment: Respiratory Therapy Consult ONCE Comment: Reason For Exam: 04/29/24 04:43 OT Screen per Nursing Assess ONCE Comment: Protocol Order Physician Instructions: Greater than 3 points order OT Admission Screening Reason For Exam: Triggered on Admission Diagnosis: COPD, dyspnea, Bilateral Pleural Effusion Open Wound/Cellutlitis/Pressure Ulcers: No Acute Fx/ORIF/Change in wt bearing status: No Severe MUSCULOSKELETAL pain: No ADL Dysfunction: Yes Acute CVA w/Hemiparesis/Hemiplegia: No Decreased Functional Mobility/Strength: Yes Sprain/Strain: No Acute Post-op Mobility Dysfunction: No Total Points: 4 PT Screen per Nursing Assess ONCE Comment: Protocol Order Physician Instructions: Greater than 3 points order PT Admission Screenin Reason For Exam: Triggered on Admission Diagnosis: COPD, dyspnea, Bilateral Pleural Effusion Open Wound/Cellutlitis/Pressure Ulcers: No Acute Fx/ORIF/Change in wt bearing status: No Severe MUSCULOSKELETAL pain: No ADL Dysfunction: Yes Acute CVA w/Hemiparesis/Hemiplegia: No Decreased Functional Mobility/Strength: Yes Sprain/Strain: No Acute Post-op Mobility Dysfunction: No Total Points: 4 Smoking Cessation Education ONCE Comment: Diagnosis: COPD, dyspnea, Bilateral Pleural Effusion Smoking Status: Current every day smoker How long have you smoked: 37 years Have you smoked in the past 12 months: Yes Approximately how many cigarettes per day: 1/2 pack/day Do you dip or chew tobacco: No ST Screen per Nursing Assess ONCE Comment: Protocol Order Physician Instructions: Greater than [address] Admission Screening Reason For Exam: Triggered on Admission Diagnosis: COPD, dyspnea, Bilateral Pleural Effusion CVA/Dyshpagia/Aphasia: No Cognitive Deficits: No Dehydration/Nutrition Deficit: Yes Reflux: No Oral-Motor Difficulties: No Pneumonia: No Assisted Resident: No Total Points: 5 04/29/24 05:37 Respiratory MDI UD Comment: Diagnosis: COPD, dyspnea, Bilateral Pleural Effusion 04/29/24 08:21 EKG STAT Comment: Diagnosis: COPD, dyspnea, Bilateral Pleural Effusion 04/30/24 08:51 Incentive Spirometry UD Comment: Diagnosis: COPD, dyspnea, Bilateral Pleural Effusion 04/30/24 10:43 Incentive Spirometry Q1H Comment: Diagnosis: COPD, dyspnea, Bilateral Pleural Effusion 05/01/24 07:25 RT Miscellaneous Order ROUTINE Comment: Physician Instructions: Reason For Exam: wean O2- does not wear at home Diagnosis: COPD, dyspnea, Bilateral Pleural Effusion Discharge Exam General Appearance: no apparent distress Neurologic Exam: alert, oriented x 3, cooperative Eye Exam: PERRL Ears, Nose, Throat Exam: normal ENT inspection Neck Exam: normal inspection Respiratory Exam: crackles/rales Cardiovascular Exam: regular rate/rhythm, normal heart sounds Gastrointestinal/Abdomen Exam: soft, normal bowel sounds Pelvic Exam: deferred Rectal Exam: deferred Back Exam: normal inspection Extremity Exam: normal inspection Skin Exam: normal color Final Diagnosis/Problem List - Final Discharge Diagnosis/Problem (1) COPD with acute exacerbation Current Visit: Yes Status: Acute Code(s): J44.1 - CHRONIC OBSTRUCTIVE PULMONARY DISEASE W (ACUTE) EXACERBATION (2) Bilateral pleural effusion Current Visit: Yes Status: Acute Code(s): J90 - PLEURAL EFFUSION, NOT ELSEWHERE CLASSIFIED (3) Encysted lung fluid Current Visit: Yes Status: Acute Code(s): J90 - PLEURAL EFFUSION, NOT ELSEWHERE CLASSIFIED (4) Metabolic acidosis Current Visit: Yes Status: Resolved Code(s): E87.20 - ACIDOSIS, UNSPECIFIED (5) ODALIS (acute kidney injury) Current Visit: Yes Status: Resolved Code(s): N17.9 - ACUTE KIDNEY FAILURE, UNSPECIFIED (6) Chest pain Current Visit: Yes Status: Resolved Code(s): R07.9 - CHEST PAIN, UNSPECIFIED (7) Dyspnea Current Visit: Yes Status: Acute Code(s): R06.00 - DYSPNEA, UNSPECIFIED (8) Elevated lactic acid level Current Visit: Yes Status: Resolved Code(s): R79.89 - OTHER SPECIFIED ABNORMAL FINDINGS OF BLOOD CHEMISTRY (9) Emphysema lung Current Visit: Yes Status: Chronic Code(s): J43.9 - EMPHYSEMA, UNSPECIFIED (10) Anxiety Current Visit: No Status: Chronic Code(s): F41.9 - ANXIETY DISORDER, UNSPECIFIED (11) Bipolar 1 disorder, depressed Current Visit: No Status: Chronic (12) Depression Current Visit: No Status: Chronic Code(s): F32.9 - MAJOR DEPRESSIVE DISORDER, SINGLE EPISODE, UNSPECIFIED (13) Multiple personality disorder Current Visit: No Status: Chronic Code(s): F44.81 - DISSOCIATIVE IDENTITY DISORDER (14) Tetrahydrocannabinol (THC) dependence Current Visit: No Status: Chronic Code(s): F12.20 - CANNABIS DEPENDENCE, UNCOMPLICATED (15) Underweight Current Visit: No Status: Chronic Code(s): R63.6 - UNDERWEIGHT (16) Chronic headaches Current Visit: Yes Status: Chronic Code(s): R51.9 - HEADACHE, UNSPECIFIED; G89.29 - OTHER CHRONIC PAIN - Discharge Disposition: Home, Self-Care Condition: Stable Prescriptions: New Cefuroxime Axetil [Cefuroxime] 500 mg PO BID 7 Days #14 tablet Ciprofloxacin HCl 1 drop OP Q4HWA 5 Days Prednisone 20 mg [Deltasone 20 mg] 20 mg PO BID 5 Days #10 tablet Continue Trazodone HCl 200 mg PO HS Thyroid,Pork [[place] Thyroid] 15 mg PO DAILY Albuterol Sulfate [Proair Respiclick] 2 puffs IH QID Meloxicam 15 mg [Meloxicam 15 MG] 15 mg PO DAILY Ergocalciferol (Vitamin D2) [Vitamin D2] 50,000 unit PO WEEKLY Loratadine 10 mg [Claritin 10 mg] 10 mg PO DAILY Buspirone HCl 5 mg [Buspar 5 mg] 20 mg PO BID Follow up with: GEREMIAS WHEAT [Primary Care Provider] - JIAN COLÓN [ACTIVE STAFF] - 3 weeks
[2024-05-02 12:05] VITALS: BP 93/51; PULSE 72; RESP 17; TEMP 97.2; O2SAT 95
== END 2024-05-02 13:45 | disposition home or self-care (01) | DRG 191 ==
LOC: ED 00:06 → MED SURG 03:06
PROVIDERS: ADMIT Internal Medicine Critical Care Medicine; ATTEND Internal Medicine Critical Care Medicine
DX: J44.1 Chronic obstructive pulmonary disease with (acute) exacerbation (principal); E87.20 Acidosis, unspecified; J90 Pleural effusion, not elsewhere classified; N17.9 Acute kidney failure, unspecified; Z59.19 Other inadequate housing; Z59.82 Transportation insecurity; E03.9 Hypothyroidism, unspecified; E78.5 Hyperlipidemia, unspecified; E87.6 Hypokalemia; R07.9 Chest pain, unspecified; R06.00 Dyspnea, unspecified; R79.89 Other specified abnormal findings of blood chemistry; J43.9 Emphysema, unspecified; F41.9 Anxiety disorder, unspecified; F32.A Depression, unspecified; F44.81 Dissociative identity disorder; F12.20 Cannabis dependence, uncomplicated; F17.200 Nicotine dependence, unspecified, uncomplicated; R63.6 Underweight; R51.9 Headache, unspecified; Z79.899 Other long term (current) drug therapy
CPT/HCPCS: 0241U; 36000; 36415; 70450; 71260; 80053; 80202; 80307; 81001; 82077; 82150; 82805; 83605; 83690; 83735; 83880; 84132; 84134; 84443; 84484; 84703; 85025; 85027; 87040; 87070; 87651; 93005; 93041; 94640; 94760; 94762; 96360; 99285; 96365; 96367; J0456; J0696; J1650; J1940; J2405; J2919; J3370; J7609; Q3014; A9270-GY

== ENCOUNTER 2024-07-09 14:32 | Emergency (ER) | payer OTHER ==
[2024-07-09 14:52] VITALS: TEMP 97.3
[2024-07-09] MEDS ORDERED: Cortisporin Eye Drops OP ONE (15:05)
[2024-07-09] MEDS: Cortisporin Eye Drops OP ONE (15:05)
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
[2024-07-09 15:37] LABS: INFLUENZA A NEGATIVE (NEGATIVE); INFLUENZA B NEGATIVE (NEGATIVE); RESPIRATORY SYNCTIAL VIRUS NEGATIVE (NEGATIVE)
[2024-07-09 15:39] LABS: SARS-CoV-2 Xpert Express POSITIVE (NEGATIVE)
[2024-07-09 16:02] VITALS: BP 107/75; PULSE 78; RESP 19; O2SAT 96
== END 2024-07-09 16:11 | disposition home or self-care (01) ==
LOC: ED 14:32
DX: U07.1 COVID-19 (principal); H57.11 Ocular pain, right eye; R05.9 Cough, unspecified; F17.200 Nicotine dependence, unspecified, uncomplicated; H16.201 Unspecified keratoconjunctivitis, right eye
CPT/HCPCS: 0241U; 87651; 99283; A9270-GY

== ENCOUNTER 2024-08-17 09:34 | Emergency (ER) | payer OTHER ==
[2024-08-17 10:01] VITALS: TEMP 98.3
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
[2024-08-17] MEDS ORDERED: Sodium Chloride 0.9% 1000 ML 1,000 ML ONE (10:33)
[2024-08-17] MEDS ORDERED: Zofran 4 MG/2 ML VIAL ONE (10:33)
[2024-08-17] MEDS: Zofran 4 MG/2 ML VIAL IV ONE (10:34)
[2024-08-17] MEDS: Sodium Chloride 0.9% 1000 ML 1,000 ML IV STA (10:34)
[2024-08-17 10:50] LABS: Absolute Neutrophil Ct (ANC) 5.34 x10^3/uL (1.56-6.13); BASOPHIL % 0.2 % (0.1-1.2); Basophil (Absolute #) 0.01 x10^3/uL (0.01-0.08); Eosinophil (Absolute #) 0 x10^3/uL (0.04-0.36); Hematocrit 37.8 % (34.1-44.9); Hemoglobin 11.8 g/dL (11.2-15.7); IMMATURE GRAN # 0.03 x10^3u/L (0.001-0.031); IMMATURE GRAN % 0.5 % (0.001-0.429); Lymphocytes % 13.7 % (19.3-51.7); Mean Cell Volume 84.8 fL (79.4-94.8); Mean Corpuscular Hemoglobin 26.5 pg (25.6-32.2); Mean Corpuscular Hgb Concent. 31.2 g/dL (32.2-35.5); Mean Platelet Volume 9.1 fL (9.4-12.3); Monocytes % 4.6 % (4.7-12.5); Platelet Count 325 x10^3/uL (182-369); Red Blood Count 4.46 x10^6/uL (3.93-5.22); Red Cell Distribution Width 14.4 % (11.7-14.4); White Blood Count 6.6 x10^3/uL (3.98-10.04)
[2024-08-17 11:04] LABS: ALBUMIN 3.4 g/dL (3.5-5.0); BILIRUBIN,TOTAL 0.4 mg/dL (0.2-1.3); Calcium 8.2 mg/dL (8.4-10.2); Creatinine 1 0.55 mg/dL (0.52-1.04); EST GLOMERULAR FILTRATION RATE 111.6 ML/MIN; Potassium 3.8 mmol/L (3.5-5.1); Total Protein 6.6 g/dL (6.3-8.2)
--- NOTE | 2024-08-17 11:19 | XRAY ---
Indication: Cough. Comparison: April 01, 2024 Lungs again hyperinflated with new minimal left base subsegmental atelectasis/scarring. Remaining heart and lungs unremarkable. Bony thorax intact. No acute findings.
--- NOTE | 2024-08-17 12:22 | XRAY ---
Indication: Left flank pain. Multiple contiguous axial images obtained through the abdomen and pelvis without contrast. Comparison: January 17, 2024 Study is slightly degraded by respiration artifact and beam artifact from patient's arms. Lung bases again demonstrates pulmonary emphysema with new tiny right effusion and bilateral dependent atelectasis. Heart not enlarged. Stable small hiatal hernia. Noncontrasted stomach and bowel loops appear nonobstructed with normal appendix. Again nonobstructing micro-calculi bilaterally, 20.5 cm hepatomegaly, 15.5 cm splenomegaly, cholecystectomy, and hysterectomy. No free fluid/air. Remaining liver, pancreas, spleen, adrenal glands, kidneys, ureters, bladder, and aorta are unremarkable for noncontrast exam. Osseous structures demonstrates new remote-appearing T12 superior endplate fracture with less than 25% height loss. Impression: 1. Respiration and beam artifact. 2. New tiny right effusion and remote-appearing T12 endplate fracture. 3. Chronic findings including pulmonary emphysema, hiatal hernia, nonobstructing bilateral renal micro-calculi, and hepatosplenomegaly. 4. Remaining CT abdomen/pelvis without contrast exam is grossly negative.
[2024-08-17 13:09] VITALS: BP 116/74; PULSE 70; RESP 17
[2024-08-17 13:11] VITALS: O2SAT 96
[2024-08-17 13:45] LABS: Appearance Clear (Clear); Bacteria Few /HPF (None Seen); Bilirubin Negative (Negative); Blood Negative (Negative); Epithelial Cells Few /HPF (None Seen); Glucose, Urine Negative (Negative); Hyaline Casts NONE SEEN /LPF (0-2); Ketones Negative (Negative); Leukocyte Esterase Trace (Negative); Nitrite Negative (Negative); Protein,Urine Dip Negative (Negative)
== END 2024-08-17 13:25 | disposition home or self-care (01) ==
LOC: ED 09:34
DX: R10.9 Unspecified abdominal pain (principal); R05.9 Cough, unspecified; E78.5 Hyperlipidemia, unspecified; Z72.0 Tobacco use
CPT/HCPCS: 36415; 71045; 74176; 80053; 81001; 82150; 83605; 83690; 85025; 93005; 96360; 96374; 99284; 99285; J2405

== ENCOUNTER 2024-09-14 00:33 | Emergency (ER) | payer OTHER ==
[2024-09-14 01:09] VITALS: TEMP 98.2
[2024-09-14] MEDS ORDERED: Sodium Chloride 0.9% 1000 ML 1,000 ML ONE (01:10)
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
[2024-09-14 01:58] LABS: INFLUENZA A NEGATIVE (NEGATIVE); INFLUENZA B NEGATIVE (NEGATIVE); RESPIRATORY SYNCTIAL VIRUS NEGATIVE (NEGATIVE); SARS-CoV-2 Xpert Express NEGATIVE (NEGATIVE)
[2024-09-14] MEDS: Sodium Chloride 0.9% 1000 ML 1,000 ML IV SCH (01:58)
[2024-09-14] MEDS ORDERED: TORAdol 30 mg Injection ONE (01:59)
[2024-09-14] MEDS: TORAdol 30 mg Injection IV ONE (02:00)
[2024-09-14 02:15] LABS: Absolute Neutrophil Ct (ANC) 8.42 x10^3/uL (1.56-6.13); BASOPHIL % 0.3 % (0.1-1.2); Basophil (Absolute #) 0.03 x10^3/uL (0.01-0.08); Eosinophil % 0.1 % (0.7-5.8); Eosinophil (Absolute #) 0.01 x10^3/uL (0.04-0.36); Hematocrit 38.8 % (34.1-44.9); IMMATURE GRAN # 0.08 x10^3u/L (0.001-0.031); IMMATURE GRAN % 0.8 % (0.001-0.429); Lymphocyte (Absolute #) 1.56 x10^3/uL (1.18-3.74); Lymphocytes % 14.7 % (19.3-51.7); Mean Corpuscular Hemoglobin 26.9 pg (25.6-32.2); Mean Corpuscular Hgb Concent. 30.9 g/dL (32.2-35.5); Mean Platelet Volume 9.5 fL (9.4-12.3); Monocyte (Absolute #) 0.54 x10^3/uL (0.24-0.86); Monocytes % 5.1 % (4.7-12.5); Platelet Count 241 x10^3/uL (182-369); Red Blood Count 4.46 x10^6/uL (3.93-5.22); Red Cell Distribution Width 14.7 % (11.7-14.4); White Blood Count 10.6 x10^3/uL (3.98-10.04)
[2024-09-14 02:27] LABS: ALBUMIN 3.8 g/dL (3.5-5.0); ANION GAP 16.8 MEQ/L (5-15); BILIRUBIN,TOTAL 0.6 mg/dL (0.2-1.3); Calcium 9.1 mg/dL (8.4-10.2); Creatinine 1 0.7 mg/dL (0.52-1.04); EST GLOMERULAR FILTRATION RATE 105.3 ML/MIN; Potassium 4.3 mmol/L (3.5-5.1); Total Protein 7.3 g/dL (6.3-8.2)
[2024-09-14 02:42] LABS: Appearance Clear (Clear); Bacteria Rare /HPF (None Seen); Bilirubin Negative (Negative); Blood Moderate (Negative); Epithelial Cells Few /HPF (None Seen); Glucose, Urine Negative (Negative); Ketones Negative (Negative); Leukocyte Esterase Trace (Negative); Nitrite Negative (Negative); Protein,Urine Dip 30 (Negative); RBC 21-50 /HPF (0-5)
[2024-09-14] MEDS ORDERED: Macrobid 100MG Capsule ONE (03:24)
[2024-09-14] MEDS ORDERED: Compazine 10 MG/2 ML ONE (03:24)
[2024-09-14] MEDS: Compazine 10 MG/2 ML IV ONE (03:25)
[2024-09-14] MEDS: Macrobid 100MG Capsule PO ONE (03:25)
[2024-09-14 05:15] VITALS: BP 111/62; PULSE 83; RESP 16
[2024-09-14 05:18] VITALS: O2SAT 98
--- NOTE | 2024-09-14 11:35 | XRAY ---
CLINICAL HISTORY: COUGH COMPARISON: 04/29/2024 TECHNIQUE: An X-ray image of the chest is obtained in AP projection. FINDINGS: Pulmonary Parenchyma: Hyperinflated both lungs. Flattening of both hemidiaphragms. Findings are suggestive of COPD. Unchanged. Prominent interstitial lung markings. Likely of chronic changes. Lungs are clear bilaterally. No evidence of consolidation, collapse, or focal opacities. No pulmonary nodules are identified. No evidence of pleural effusion or pleural thickening. Heart and Mediastinum: Heart size and shape are normal. No mediastinal widening or masses. No hilar or mediastinal lymphadenopathy. Bony Thorax: Degenerative changes of the visualized skeleton. Bony thorax appears intact without fractures or deformities. Soft Tissues: Soft tissues overlying the chest wall are unremarkable. IMPRESSION: 1. Evidence of COPD. Unchanged. Need clinical correlation. 2. Interval regression of previously noted bilateral pleural effusion. 3. Otherwise, no significant interval changes. Electronically Signed by: Ethel Gann MD. (09/14/2024 07:32:07 EDT)
== END 2024-09-14 06:00 | disposition home or self-care (01) ==
LOC: ED 00:33
DX: N39.0 Urinary tract infection, site not specified (principal); R31.9 Hematuria, unspecified; B34.9 Viral infection, unspecified; R05.1 Acute cough; M79.10 Myalgia, unspecified site; R19.7 Diarrhea, unspecified; E78.5 Hyperlipidemia, unspecified; Z79.899 Other long term (current) drug therapy; Z72.0 Tobacco use
CPT/HCPCS: 0241U; 36415; 71045; 80053; 81001; 84484; 85025; 93041; 94760; 96361; 96374; 96375; 99284; J1885; A9270-GY

== ENCOUNTER 2024-10-13 16:05 | Emergency (ER) | payer OTHER ==
[2024-10-13 16:35] VITALS: BP 134/88; PULSE 92; RESP 16; TEMP 96.8; O2SAT 98
[2024-10-13] MEDS ORDERED: Ocuflox OPHTHALMIC 5 ML OP ONE (16:46)
[2024-10-13] MEDS: Ocuflox OPHTHALMIC 5 ML OP STA (17:00)
[2024-10-13 17:01] LABS: Absolute Neutrophil Ct (ANC) 4.03 x10^3/uL (1.56-6.13); BASOPHIL % 0.2 % (0.1-1.2); Basophil (Absolute #) 0.01 x10^3/uL (0.01-0.08); Eosinophil (Absolute #) 0 x10^3/uL (0.04-0.36); Hematocrit 42.8 % (34.1-44.9); Hemoglobin 13.3 g/dL (11.2-15.7); IMMATURE GRAN # 0.02 x10^3u/L (0.001-0.031); IMMATURE GRAN % 0.4 % (0.001-0.429); Lymphocyte (Absolute #) 1.25 x10^3/uL (1.18-3.74); Lymphocytes % 22.2 % (19.3-51.7); Mean Cell Volume 83.8 fL (79.4-94.8); Mean Corpuscular Hgb Concent. 31.1 g/dL (32.2-35.5); Mean Platelet Volume 8.6 fL (9.4-12.3); Monocyte (Absolute #) 0.33 x10^3/uL (0.24-0.86); Monocytes % 5.9 % (4.7-12.5); Neutrophil % 71.3 % (34.0-71.1); Platelet Count 332 x10^3/uL (182-369); Red Blood Count 5.11 x10^6/uL (3.93-5.22); Red Cell Distribution Width 14.3 % (11.7-14.4); White Blood Count 5.6 x10^3/uL (3.98-10.04)
--- NOTE | 2024-10-13 17:09 | XRAY ---
Indication: Cough. Comparison: September 14, 2024 Portable chest again hyperinflated and is now clear. Heart not enlarged. Bony thorax intact again with osteopenia. No new/acute findings.
[2024-10-13 17:15] LABS: ALBUMIN 3.8 g/dL (3.5-5.0); ANION GAP 16.5 MEQ/L (5-15); BILIRUBIN,TOTAL 0.4 mg/dL (0.2-1.3); Creatinine 1 0.46 mg/dL (0.52-1.04); EST GLOMERULAR FILTRATION RATE 116.5 ML/MIN; Potassium 3.7 mmol/L (3.5-5.1)
[2024-10-13 17:39] LABS: INFLUENZA A NEGATIVE (NEGATIVE); INFLUENZA B NEGATIVE (NEGATIVE); RESPIRATORY SYNCTIAL VIRUS NEGATIVE (NEGATIVE); SARS-CoV-2 Xpert Express NEGATIVE (NEGATIVE)
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
== END 2024-10-13 18:55 | disposition home or self-care (01) ==
LOC: ED 16:05
DX: B34.9 Viral infection, unspecified (principal); H10.9 Unspecified conjunctivitis; H57.89 Other specified disorders of eye and adnexa; M79.10 Myalgia, unspecified site; R05.9 Cough, unspecified; E78.5 Hyperlipidemia, unspecified; Z79.899 Other long term (current) drug therapy; Z72.0 Tobacco use
CPT/HCPCS: 0241U; 36415; 71045; 80053; 85025; 99284; 99283; A9270-GY

== ENCOUNTER 2025-02-01 18:34 | Observation (INO) | payer MEDICAID ==
[2025-02-01 18:48] LABS: BASOPHIL % 0.3 % (0.1-1.2); Basophil (Absolute #) 0.02 x10^3/uL (0.01-0.08); Eosinophil (Absolute #) 0 x10^3/uL (0.04-0.36); Hematocrit 37.5 % (34.1-44.9); Hemoglobin 11.2 g/dL (11.2-15.7); IMMATURE GRAN # 0.04 x10^3u/L (0.001-0.031); IMMATURE GRAN % 0.5 % (0.001-0.429); Lymphocyte (Absolute #) 1.23 x10^3/uL (1.18-3.74); Mean Corpuscular Hemoglobin 25.6 pg (25.6-32.2); Mean Corpuscular Hgb Concent. 29.9 g/dL (32.2-35.5); Monocyte (Absolute #) 0.58 x10^3/uL (0.24-0.86); NUCLEATED RBC # 0.00 x10^3u/L (0.00-0.012); NUCLEATED RBC % 0.0 % (0.00-0.2); Platelet Count 386 x10^3/uL (182-369); Red Blood Count 4.37 x10^6/uL (3.93-5.22); White Blood Count 7.3 x10^3/uL (3.98-10.04)
[2025-02-01] MEDS ORDERED: BABY ASPIRIN 81 MG CHEW ONE (18:54)
[2025-02-01] MEDS ORDERED: Zofran 4 MG/2 ML VIAL ONE (18:54)
[2025-02-01] MEDS ORDERED: SUBLIMAZE 100 MCG/2 ML ONE ×2 (18:55→19:02)
[2025-02-01] MEDS: BABY ASPIRIN 81 MG CHEW PO ONE (18:56)
[2025-02-01] MEDS: SUBLIMAZE 100 MCG/2 ML IV ONE (18:57)
[2025-02-01] MEDS: Zofran 4 MG/2 ML VIAL IV ONE (18:57)
[2025-02-01 19:04] LABS: Calcium 9.2 mg/dL (8.4-10.2); Carbon Dioxide 24.0 mmol/L (22-30); Creatinine 1 0.45 mg/dL (0.52-1.04); EST GLOMERULAR FILTRATION RATE 117.1 ML/MIN; Glucose 108.0 mg/dL (74-106); Potassium 4.2 mmol/L (3.5-5.1); SGOT/AST 46.0 U/L (14-36); SGPT/ALT 41.0 U/L (0-35); Total Protein 7.1 g/dL (6.3-8.2)
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
[2025-02-01 19:15] LABS: NT PRO BNPII 362 pg/mL (<300); TROPONIN < 0.012 ng/mL (0.000-0.033)
[2025-02-01] MEDS: PROAMATINE PO ONE (22:58)
[2025-02-02 00:38] LABS: Glucose, Urine Negative (Negative); Protein,Urine Dip Negative (Negative); WBC 0-2 /HPF (0-5)
[2025-02-02] MEDS ORDERED: TYLENOL 325 MG PO PRN ×2 (02:08)
[2025-02-02] MEDS ORDERED: NON-FORMULARY ITEM (Albuterol Sulfate/Budesonide [Airsupra 90-80 Mcg Inhaler] 10.7 GM Hfa. IH PRN (02:08)
[2025-02-02] MEDS ORDERED: Zofran 4 MG/2 ML VIAL IV PRN (02:12)
[2025-02-02] MEDS: NORCO 5/325 MG PO PRN (02:22)
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
[2025-02-02 03:07] LABS: Calcium 8.8 mg/dL (8.4-10.2); Carbon Dioxide 26.0 mmol/L (22-30); Creatinine 1 0.54 mg/dL (0.52-1.04); EST GLOMERULAR FILTRATION RATE 112.1 ML/MIN; Glucose 153.0 mg/dL (74-106); Potassium 3.6 mmol/L (3.5-5.1)
[2025-02-02 03:25] LABS: Hematocrit 31.3 % (34.1-44.9); Hemoglobin 9.5 g/dL (11.2-15.7); Mean Corpuscular Hemoglobin 26.2 pg (25.6-32.2); Mean Corpuscular Hgb Concent. 30.4 g/dL (32.2-35.5); Platelet Count 334 x10^3/uL (182-369); Red Blood Count 3.62 x10^6/uL (3.93-5.22); White Blood Count 5.5 x10^3/uL (3.98-10.04)
[2025-02-02 03:28] LABS: SGOT/AST 39.0 U/L (14-36); SGPT/ALT 33.0 U/L (0-35); Total Protein 6.4 g/dL (6.3-8.2)
[2025-02-02 03:48] LABS: Microcytosis 1+; Total Cells Counted 100
[2025-02-02] MEDS ORDERED: DUONEB 0.5-3 MG/3 ml Neb IH SCH (07:00)
[2025-02-02] MEDS ORDERED: MEDICATION INTERVENTION MC SCH (07:30)
--- NOTE | 2025-02-02 08:29 | XRAY ---
Indication: Chest pain. Comparison: January 04, 2025 Portable chest unchanged again demonstrating COPD and minimal left base subsegmental atelectasis/scarring. Heart not enlarged. Bony thorax intact again with osteopenia and degenerative changes. No new/acute findings.
--- NOTE | 2025-02-02 08:53 | XRAY ---
Indication: Elevated D-dimer. Multiple contiguous axial images obtained through the chest using 100 cc Isovue 370 contrast and PE protocol. Comparison: January 01, 2025 Good opacification pulmonary arteries to include lobar and segmental branches. Again no pulmonary embolus. Heart remains borderline enlarged again with interval increasing small diffuse pericardial effusion. Aorta is normal in course and caliber. No pathologic mediastinal/hilar lymphadenopathy. Lungs again demonstrates marked diffuse pulmonary emphysema with scattered fibrosis/scarring. Again bibasilar subsegmental atelectasis/scarring with tiny effusions, less than before. Medial left lower lobe now demonstrates a more focal 1.7 x 4.5 cm loculated fluid collection. Bony thorax intact again with osteopenia and remote L1 superior endplate fracture. Limited upper abdomen demonstrates stable small right renal cortical cyst. Impression: 1. Continued negative pulmonary embolus. 2. Again borderline cardiomegaly with worsening mild pericardial effusion. Echocardiogram may yield further information. 3. Again bibasilar atelectasis/scarring with tiny effusions. Medial left lower lobe now demonstrates focal 1.7 x 4.5 cm loculated fluid collection. 4. Chronic findings including pulmonary emphysema, fibrosis/scarring, chronic bony findings, and right renal cyst.
[2025-02-02] MEDS: LASIX 20 MG PO SCH (09:04)
[2025-02-02] MEDS: Miralax Powder 17GM PACKET PO SCH (09:05)
[2025-02-02] MEDS: ENOXAPARIN SODIUM SQ SCH (09:05)
[2025-02-02] MEDS: KENALOG 0.1% CREAM 15 GM TP SCH (09:06)
[2025-02-02] MEDS: ZOLOFT 50 MG TABLET PO SCH (09:06)
[2025-02-02 09:38] LABS: A-aADO2 164; ABG HEMOGLOBIN 10.3; ABG POTASSIUM 4.2 (3.5-5.1); ABG SITE RIGHT BRACHIAL; ARTERIAL BLD GAS O2 SATURATION 96.6 % (95-100); ARTERIAL BLOOD GAS BASE EXCESS 0.7 (-2.0-2.0); ARTERIAL BLOOD GAS FIO2 40 %; ARTERIAL BLOOD GAS PCO2 40 mmHg (35-45); ARTERIAL BLOOD GAS PO2 71 mmHg (75-100); ARTERIAL BLOOD GAS TEMPERATURE 37.0 C; HCO3- 25.4 (22-28); HGB O2 SAT 93.2 g/dF (94-100); Methhemoglobin 1.0 % (1.4-1.5); paO2 pAO1 0.30
--- NOTE | 2025-02-02 12:21 | PCM.DS ---
Discharge Summary Date of Admission: 02/02/25 00:18 Date of Discharge: 02/02/25 Admitting Physician: SP VAZQUEZ MD Primary Care Provider: [facility] Allergies Allergies amoxicillin [Amoxicillin] Allergy (Mild, Verified 02/01/25 18:46) Vomiting codeine [Codeine] Allergy (Mild, Verified 02/01/25 18:46) Vomiting metoprolol Allergy (Verified 02/01/25 18:46) Swelling of Tongue and Lips ranolazine Allergy (Verified 02/01/25 18:46) Swelling of Tongue and Lips Hospital Summary - Hospital Course Hospital Course: The patient is a 49-year-old female with a history of respiratory failure secondary to COPD (on 3L oxygen), anxiety and depression, a recent diagnosis of renal cancer, and chronic back pain with a lumbar compression fracture. She currently resides at [facility] and presented to the ED with substernal chest pain that has been occurring intermittently over the last few months, with increased discomfort over the past couple of days. She denies any shortness of breath, fever, chills, dysuria, diarrhea, or rash. Her chronic smokers cough has not worsened. She reports that [place] provides minimal relief for her chest pain. In the ED, troponins were negative and IV fluids were administered for low blood pressure. On 02/02/25, she continued to report chest pain. A chest CT showed a worsening pericardial effusion, prompting a stat echocardiogram order for further evaluation. She remains on her baseline oxygen requirement of 3L with saturations at 98%. Her EKG was without concerning findings, and troponins remained negative. D-dimer was elevated at 2.32; however, chest CT ruled out pulmonary embolism. Liver enzymes have improved, and overall labs are non-concerning, with hemoglobin at 9.5, consistent with her baseline. If the echocardiogram is non-concerning, the patient will return to the [facility] today; if concerning, she may require transfer to a higher level of care. - Vitals & Intake/Output Vital Signs: Vital Signs Temperature 97.6 F 02/02/25 08:00 Pulse Rate 87 02/02/25 08:00 Respiratory Rate 15 02/02/25 08:00 Blood Pressure 93/60 02/02/25 08:00 O2 Sat by Pulse Oximetry 98 02/02/25 08:00 Intake & Output: Intake & Output 01/31/25 02/01/25 02/02/25 02/03/25 11:59 11:59 11:59 11:59 Intake Total 620 Balance 620 Weight 49.9 kg - Lab Result Diagrams: 02/02/25 03:20 02/02/25 02:20 Lab Results-Last 24 Hrs: Lab Results-Last 24 Hours 02/01/25 02/01/25 02/01/25 Range/Units 18:30 18:30 18:30 WBC 7.3 (3.98-10.04) x10^3/uL RBC 4.37 (3.93-5.22) x10^6/uL Hgb 11.2 (11.2-15.7) g/dL Hct 37.5 (34.1-44.9) % MCV 85.8 (79.4-94.8) fL MCH 25.6 (25.6-32.2) pg MCHC 29.9 L (32.2-35.5) g/dL RDW 17.1 H (11.7-14.4) % Plt Count 386 H (182-369) x10^3/uL MPV 9.3 L (9.4-12.3) fL Gran % 74.5 H (34.0-71.1) % Immature Gran % (Auto) 0.5 H (0.001-0.429) % Nucleat RBC Rel Count 0.0 (0.00-0.2) % Eos # (Auto) 0 L (0.04-0.36) x10^3/uL Immature Gran # (Auto) 0.04 H (0.001-0.031) x10^3u/L Absolute Lymphs (auto) 1.23 (1.18-3.74) x10^3/uL Absolute Monos (auto) 0.58 (0.24-0.86) x10^3/uL Absolute Nucleated RBC 0.00 (0.00-0.012) x10^3u/L Lymphocytes % 16.8 L (19.3-51.7) % Monocytes % 7.9 (4.7-12.5) % Eosinophils % 0.0 L (0.7-5.8) % Basophils % 0.3 (0.1-1.2) % Absolute Granulocytes 5.43 (1.56-6.13) x10^3/uL Segmented Neutrophils (34.0-71.1) % Lymphocytes (Manual) (19.3-51.7) % Monocytes (Manual) (4.7-12.5) % Basophils # 0.02 (0.01-0.08) x10^3/uL Hypochromia Platelet Estimate (NORMAL) RBC Morphology Microcytosis D-Dimer (0.0-0.50) mg/L Puncture Site pCO2 (35-45) mmHg pO2 (75-100) mmHg Base Excess (-2.0-2.0) O2 Saturation (94-100) g/dF ABG pH (7.35-7.45) ABG HCO3 (22-28) ABG O2 Sat (Measured) (95-100) % Rom Test A-a Gradient a/A Ratio Hemoglobin Carboxyhemoglobin (0.0-6.9) % THgb Methemoglobin (1.4-1.5) % Temperature C POC O2 Flow Rate % Sodium 134 L (135-145) mmol/L Potassium 4.2 (3.5-5.1) mmol/L Chloride 99 (98-107) mmol/L Carbon Dioxide 24 (22-30) mmol/L Anion Gap 15.2 H (5-15) MEQ/L BUN 20 H (7-17) mg/dL Creatinine 0.45 L (0.52-1.04) mg/dL Estimated GFR 117.1 ML/MIN Glucose 108 H (74-106) mg/dL Calcium 9.2 (8.4-10.2) mg/dL Total Bilirubin 0.30 (0.2-1.3) mg/dL AST 46 H (14-36) U/L ALT 41 H (0-35) U/L Alkaline Phosphatase 195 H (38-126) U/L Troponin I < 0.012 (0.000-0.033) ng/mL NT-Pro-B Natriuret Pep 362 (<300) pg/mL Serum Total Protein 7.1 (6.3-8.2) g/dL Albumin 3.6 (3.5-5.0) g/dL Prealbumin (17.6-36.0) mg/dL Urine Color (Yellow) Urine Appearance (Clear) Urine pH (4.6-8.0) Ur Specific Pyatt (1.005-1.030) Urine Protein (Negative) Urine Glucose (UA) (Negative) mg/dL Urine Ketones (Negative) Urine Blood (Negative) Urine Nitrite (Negative) Urine Bilirubin (Negative) Urine Urobilinogen (0.2) mg/dL Ur Leukocyte Esterase (Negative) U Hyaline Cast (Auto) (0-2) /LPF Urine Microscopic RBC (0-5) /HPF Urine Microscopic WBC (0-5) /HPF Ur Epithelial Cells (None Seen) /HPF Urine Bacteria (None Seen) /HPF Urine Culture Reflexed (NO) 02/01/25 02/01/25 02/02/25 Range/Units 18:30 21:45 00:02 WBC (3.98-10.04) x10^3/uL RBC (3.93-5.22) x10^6/uL Hgb (11.2-15.7) g/dL Hct (34.1-44.9) % MCV (79.4-94.8) fL MCH (25.6-32.2) pg MCHC (32.2-35.5) g/dL RDW (11.7-14.4) % Plt Count (182-369) x10^3/uL MPV (9.4-12.3) fL Gran % (34.0-71.1) % Immature Gran % (Auto) (0.001-0.429) % Nucleat RBC Rel Count (0.00-0.2) % Eos # (Auto) (0.04-0.36) x10^3/uL Immature Gran # (Auto) (0.001-0.031) x10^3u/L Absolute Lymphs (auto) (1.18-3.74) x10^3/uL Absolute Monos (auto) (0.24-0.86) x10^3/uL Absolute Nucleated RBC (0.00-0.012) x10^3u/L Lymphocytes % (19.3-51.7) % Monocytes % (4.7-12.5) % Eosinophils % (0.7-5.8) % Basophils % (0.1-1.2) % Absolute Granulocytes (1.56-6.13) x10^3/uL Segmented Neutrophils (34.0-71.1) % Lymphocytes (Manual) (19.3-51.7) % Monocytes (Manual) (4.7-12.5) % Basophils # (0.01-0.08) x10^3/uL Hypochromia Platelet Estimate (NORMAL) RBC Morphology Microcytosis D-Dimer 2.32 H* (0.0-0.50) mg/L Puncture Site pCO2 (35-45) mmHg pO2 (75-100) mmHg Base Excess (-2.0-2.0) O2 Saturation (94-100) g/dF ABG pH (7.35-7.45) ABG HCO3 (22-28) ABG O2 Sat (Measured) (95-100) % Rom Test A-a Gradient a/A Ratio Hemoglobin Carboxyhemoglobin (0.0-6.9) % THgb Methemoglobin (1.4-1.5) % Temperature C POC O2 Flow Rate % Sodium (135-145) mmol/L Potassium (3.5-5.1) mmol/L Chloride (98-107) mmol/L Carbon Dioxide (22-30) mmol/L Anion Gap (5-15) MEQ/L BUN (7-17) mg/dL Creatinine (0.52-1.04) mg/dL Estimated GFR ML/MIN Glucose (74-106) mg/dL Calcium (8.4-10.2) mg/dL Total Bilirubin (0.2-1.3) mg/dL AST (14-36) U/L ALT (0-35) U/L Alkaline Phosphatase (38-126) U/L Troponin I < 0.012 (0.000-0.033) ng/mL NT-Pro-B Natriuret Pep (<300) pg/mL Serum Total Protein (6.3-8.2) g/dL Albumin (3.5-5.0) g/dL Prealbumin (17.6-36.0) mg/dL Urine Color Yellow (Yellow) Urine Appearance Clear (Clear) Urine pH 6.0 (4.6-8.0) Ur Specific Pyatt >=1.030 A (1.005-1.030) Urine Protein Negative (Negative) Urine Glucose (UA) Negative (Negative) mg/dL Urine Ketones Negative (Negative) Urine Blood Negative (Negative) Urine Nitrite Negative (Negative) Urine Bilirubin Negative (Negative) Urine Urobilinogen 1.0 A (0.2) mg/dL Ur Leukocyte Esterase Negative (Negative) U Hyaline Cast (Auto) NONE SEEN (0-2) /LPF Urine Microscopic RBC 3-5 (0-5) /HPF Urine Microscopic WBC 0-2 (0-5) /HPF Ur Epithelial Cells None Seen (None Seen) /HPF Urine Bacteria None Seen (None Seen) /HPF Urine Culture Reflexed NO (NO) 02/02/25 02/02/25 02/02/25 Range/Units 02:20 02:20 03:20 WBC 5.5 (3.98-10.04) x10^3/uL RBC 3.62 L (3.93-5.22) x10^6/uL Hgb 9.5 L (11.2-15.7) g/dL Hct 31.3 L (34.1-44.9) % MCV 86.5 (79.4-94.8) fL MCH 26.2 (25.6-32.2) pg MCHC 30.4 L (32.2-35.5) g/dL RDW 17.1 H (11.7-14.4) % Plt Count 334 (182-369) x10^3/uL MPV 9.3 L (9.4-12.3) fL Gran % (34.0-71.1) % Immature Gran % (Auto) (0.001-0.429) % Nucleat RBC Rel Count (0.00-0.2) % Eos # (Auto) (0.04-0.36) x10^3/uL Immature Gran # (Auto) (0.001-0.031) x10^3u/L Absolute Lymphs (auto) (1.18-3.74) x10^3/uL Absolute Monos (auto) (0.24-0.86) x10^3/uL Absolute Nucleated RBC (0.00-0.012) x10^3u/L Lymphocytes % (19.3-51.7) % Monocytes % (4.7-12.5) % Eosinophils % (0.7-5.8) % Basophils % (0.1-1.2) % Absolute Granulocytes (1.56-6.13) x10^3/uL Segmented Neutrophils 70 (34.0-71.1) % Lymphocytes (Manual) 26 (19.3-51.7) % Monocytes (Manual) 4 L (4.7-12.5) % Basophils # (0.01-0.08) x10^3/uL Hypochromia 1+ Platelet Estimate NORMAL (NORMAL) RBC Morphology ABNORMAL Microcytosis 1+ D-Dimer (0.0-0.50) mg/L Puncture Site pCO2 (35-45) mmHg pO2 (75-100) mmHg Base Excess (-2.0-2.0) O2 Saturation (94-100) g/dF ABG pH (7.35-7.45) ABG HCO3 (22-28) ABG O2 Sat (Measured) (95-100) % Rom Test A-a Gradient a/A Ratio Hemoglobin Carboxyhemoglobin (0.0-6.9) % THgb Methemoglobin (1.4-1.5) % Temperature C POC O2 Flow Rate % Sodium 136 (135-145) mmol/L Potassium 3.6 (3.5-5.1) mmol/L Chloride 104 (98-107) mmol/L Carbon Dioxide 26 (22-30) mmol/L Anion Gap 9.1 (5-15) MEQ/L BUN 15 (7-17) mg/dL Creatinine 0.54 (0.52-1.04) mg/dL Estimated GFR 112.1 ML/MIN Glucose 153 H (74-106) mg/dL Calcium 8.8 (8.4-10.2) mg/dL Total Bilirubin 0.30 (0.2-1.3) mg/dL AST 39 H (14-36) U/L ALT 33 (0-35) U/L Alkaline Phosphatase 145 H (38-126) U/L Troponin I < 0.012 (0.000-0.033) ng/mL NT-Pro-B Natriuret Pep (<300) pg/mL Serum Total Protein 6.4 (6.3-8.2) g/dL Albumin 3.1 L (3.5-5.0) g/dL Prealbumin 10.38 L (17.6-36.0) mg/dL Urine Color (Yellow) Urine Appearance (Clear) Urine pH (4.6-8.0) Ur Specific Pyatt (1.005-1.030) Urine Protein (Negative) Urine Glucose (UA) (Negative) mg/dL Urine Ketones (Negative) Urine Blood (Negative) Urine Nitrite (Negative) Urine Bilirubin (Negative) Urine Urobilinogen (0.2) mg/dL Ur Leukocyte Esterase (Negative) U Hyaline Cast (Auto) (0-2) /LPF Urine Microscopic RBC (0-5) /HPF Urine Microscopic WBC (0-5) /HPF Ur Epithelial Cells (None Seen) /HPF Urine Bacteria (None Seen) /HPF Urine Culture Reflexed (NO) 02/02/25 Range/Units 09:30 WBC (3.98-10.04) x10^3/uL RBC (3.93-5.22) x10^6/uL Hgb (11.2-15.7) g/dL Hct (34.1-44.9) % MCV (79.4-94.8) fL MCH (25.6-32.2) pg MCHC (32.2-35.5) g/dL RDW (11.7-14.4) % Plt Count (182-369) x10^3/uL MPV (9.4-12.3) fL Gran % (34.0-71.1) % Immature Gran % (Auto) (0.001-0.429) % Nucleat RBC Rel Count (0.00-0.2) % Eos # (Auto) (0.04-0.36) x10^3/uL Immature Gran # (Auto) (0.001-0.031) x10^3u/L Absolute Lymphs (auto) (1.18-3.74) x10^3/uL Absolute Monos (auto) (0.24-0.86) x10^3/uL Absolute Nucleated RBC (0.00-0.012) x10^3u/L Lymphocytes % (19.3-51.7) % Monocytes % (4.7-12.5) % Eosinophils % (0.7-5.8) % Basophils % (0.1-1.2) % Absolute Granulocytes (1.56-6.13) x10^3/uL Segmented Neutrophils (34.0-71.1) % Lymphocytes (Manual) (19.3-51.7) % Monocytes (Manual) (4.7-12.5) % Basophils # (0.01-0.08) x10^3/uL Hypochromia Platelet Estimate (NORMAL) RBC Morphology Microcytosis D-Dimer (0.0-0.50) mg/L Puncture Site RIGHT BRACHIAL pCO2 40 (35-45) mmHg pO2 71 L (75-100) mmHg Base Excess 0.7 (-2.0-2.0) O2 Saturation 93.2 L (94-100) g/dF ABG pH 7.41 (7.35-7.45) ABG HCO3 25.4 (22-28) ABG O2 Sat (Measured) 96.6 (95-100) % Rom Test NOT APPLICABLE A-a Gradient 164 a/A Ratio 0.30 Hemoglobin 10.3 Carboxyhemoglobin 2.5 (0.0-6.9) % THgb Methemoglobin 1.0 L (1.4-1.5) % Temperature 37.0 C POC O2 Flow Rate 40 % Sodium (135-145) mmol/L Potassium 4.2 (3.5-5.1) mmol/L Chloride (98-107) mmol/L Carbon Dioxide (22-30) mmol/L Anion Gap (5-15) MEQ/L BUN (7-17) mg/dL Creatinine (0.52-1.04) mg/dL Estimated GFR ML/MIN Glucose (74-106) mg/dL Calcium (8.4-10.2) mg/dL Total Bilirubin (0.2-1.3) mg/dL AST (14-36) U/L ALT (0-35) U/L Alkaline Phosphatase (38-126) U/L Troponin I (0.000-0.033) ng/mL NT-Pro-B Natriuret Pep (<300) pg/mL Serum Total Protein (6.3-8.2) g/dL Albumin (3.5-5.0) g/dL Prealbumin (17.6-36.0) mg/dL Urine Color (Yellow) Urine Appearance (Clear) Urine pH (4.6-8.0) Ur Specific Pyatt (1.005-1.030) Urine Protein (Negative) Urine Glucose (UA) (Negative) mg/dL Urine Ketones (Negative) Urine Blood (Negative) Urine Nitrite (Negative) Urine Bilirubin (Negative) Urine Urobilinogen (0.2) mg/dL Ur Leukocyte Esterase (Negative) U Hyaline Cast (Auto) (0-2) /LPF Urine Microscopic RBC (0-5) /HPF Urine Microscopic WBC (0-5) /HPF Ur Epithelial Cells (None Seen) /HPF Urine Bacteria (None Seen) /HPF Urine Culture Reflexed (NO) - Radiology Exams Ordered Rad Exams-Entire Visit: Radiology Procedures Category Date Time Status CHEST 1 VIEW (PORTABLE) Stat Exams 02/01/25 18:39 Completed CHEST WITH CONTRAST [CT] Stat Exams 02/01/25 19:55 Completed ECHO W/2D AND DOPPLER [US] Stat Exams 02/02/25 10:30 Ordered - Procedures and Test Procedures and Tests throughout Hospitalization: Therapy Orders & Screens 02/02/25 02:12 EKG REPEAT IN AM Comment: Diagnosis: Precordial chest pain 02/02/25 03:02 Oxygen Nasal Cannula 3 lpm Comment: Diagnosis: Precordial chest pain Respiratory Therapy Assessment DAILY Comment: Diagnosis: Precordial chest pain 02/02/25 03:03 Smoking Cessation Education ONCE Comment: Diagnosis: Precordial chest pain Smoking Status: Current every day smoker How long have you smoked: 30 + Have you smoked in the past 12 months: Yes Approximately how many cigarettes per day: 1/2 pack/day Do you dip or chew tobacco: No Discharge Exam General Appearance: no apparent distress, alert, thin Neurologic Exam: alert, oriented x 3, cooperative, normal mood/affect, nml cerebellar function, sensation nml, No motor deficits Eye Exam: PERRL, EOMI, eyes nml inspection Ears, Nose, Throat Exam: normal ENT inspection, pharynx normal, moist mucous membranes Neck Exam: normal inspection, non-tender, supple, full range of motion Respiratory Exam: normal breath sounds, lungs clear, No respiratory distress Cardiovascular Exam: regular rate/rhythm, normal heart sounds Gastrointestinal/Abdomen Exam: soft, No tenderness, No mass Pelvic Exam: deferred Rectal Exam: deferred Back Exam: normal inspection, normal range of motion, No CVA tenderness, No vertebral tenderness Extremity Exam: normal inspection, normal range of motion Skin Exam: normal color, warm, dry Final Diagnosis/Problem List - Final Discharge Diagnosis/Problem (1) Precordial chest pain Current Visit: Yes Status: Acute Assessment & Plan: - Acute on chronic - Serial troponins x3 negative - telemetry. - ASA 81 mg for now - TSH pending - Chest CT: Impression: 1. Continued negative pulmonary embolus. 2. Again borderline cardiomegaly with worsening mild pericardial effusion. Echocardiogram may yield further information. 3. Again bibasilar atelectasis/scarring with tiny effusions. Medial left lower lobe now demonstrates focal 1.7 x 4.5 cm loculated fluid collection. 4. Chronic findings including pulmonary emphysema, fibrosis/scarring, chronic bony findings, and right renal cyst. - CXR: Portable chest unchanged again demonstrating COPD and minimal left base subsegmental atelectasis/scarring. Heart not enlarged. Bony thorax intact again with osteopenia and degenerative changes. No new/acute findings. - Echo Code(s): R07.2 - PRECORDIAL PAIN (2) Pericardial effusion Current Visit: Yes Status: Acute Assessment & Plan: - Acute on chronic - Appears worse per CT chest results - Stat Echo Code(s): I31.39 - OTHER PERICARDIAL EFFUSION (NONINFLAMMATORY) (3) Anxiety disorder Current Visit: No Status: Chronic Assessment & Plan: - Continue home meds Code(s): F41.9 - ANXIETY DISORDER, UNSPECIFIED (4) Bipolar 1 disorder Current Visit: No Status: Chronic Assessment & Plan: - Continue home meds Code(s): F31.9 - BIPOLAR DISORDER, UNSPECIFIED (5) COPD (chronic obstructive pulmonary disease) Current Visit: No Status: Chronic Assessment & Plan: -Nebs prn. - No acute exacerbation. (6) Hypothyroidism Current Visit: No Status: Chronic Assessment & Plan: - TSH pending - Continue home meds Code(s): E03.9 - HYPOTHYROIDISM, UNSPECIFIED (7) Pleural effusion Current Visit: No Status: Chronic Assessment & Plan: - Chronic and unchanged as seen on CT Code(s): J90 - PLEURAL EFFUSION, NOT ELSEWHERE CLASSIFIED (8) Hypotension Current Visit: Yes Status: Resolved Assessment & Plan: - Resolved Code(s): I95.9 - HYPOTENSION, UNSPECIFIED - Discharge Discharge Date: 02/02/25 Disposition: DC TO ANY "OTHER" HALFWAY Condition: Stable Prescriptions: Continue clonazePAM 0.5 mg PO BID PRN PRN 3 Days #6 tablet PRN Reason: Anxiety Sertraline HCl 50 mg [Zoloft 50 mg Tablet] 50 mg PO BID Polyethylene Glycol 3350 17 gm [Miralax Powder 17GM PACKET] 17 gm PO DAILY Ondansetron ODT 4 MG [Zofran Odt 4 mg] 4 mg PO Q6HPRN PRN PRN Reason: Nausea Levothyroxine Sodium 50 Mcg [Synthroid 50 Mcg] 50 mcg PO HS Furosemide 20 mg [Lasix 20 mg] 20 mg PO DAILY Ipratropium/Albuterol Sulfate [Iprat-Albut 0.5-3(2.5) mg/3 ml] 3 ml IH Q4HPRN PRN PRN Reason: Shortness Of Breath Hydrocodone/Acetaminophen [Hydrocodone-Acetamin 5-325 mg] 1 tab PO Q4HPRN PRN MDD 6 PRN Reason: Pain Albuterol Sulfate/Budesonide [Airsupra 90-80 Mcg Inhaler] 1 puff IH Q4HPRN PRN PRN Reason: Shortness Of Breath Acetaminophen 325 mg [Tylenol 325 mg] 650 mg PO Q4HPRN PRN PRN Reason: Pain Acetaminophen 325 mg [Tylenol 325 mg] 650 mg PO Q4HPRN PRN PRN Reason: Fever Triamcinolone 0.1% Cream [Kenalog 0.1% Cream 15 gm] 15 gm TP BID Additional Instructions: Follow up with cardiology. Follow up with: STONE FLYNN OF [Primary Care Provider, UNKNOWN]
--- NOTE | 2025-02-02 16:49 | PCM.NOTE ---
Date and Time: 02/02/25 1026 Subjective Assessment: The patient is a 49-year-old female with a medical history significant for respiratory failure secondary to COPD (on 3L oxygen), anxiety, depression, chronic back pain due to a lumbar compression fracture, and a recent diagnosis of renal cancer. She currently resides at [facility] and presented to the emergency department with intermittent substernal chest pain that has been occurring over the past several months, with worsening discomfort over the past couple of days. She denies shortness of breath, fever, chills, dysuria, diarrhea, or rash. Her chronic smokers cough has not worsened. She reports that [facility] offers only minimal relief for her chest pain. In the ED, she was found to be hypotensive and was given IV fluids. Troponins were negative, and EKG showed no acute abnormalities. Despite elevated D-dimer at 2.32, a chest CT ruled out pulmonary embolism. She remains on her baseline oxygen requirement of 3L with oxygen saturations at 98%. Her hemoglobin was 9.5, consistent with her baseline, and liver enzymes have improved. Overall labs were non-concerning. CT chest findings included: (1) no evidence of pulmonary embolism; (2) borderline cardiomegaly with worsening mild pericardial effusion; (3) bibasilar atelectasis and scarring with tiny effusions; and (4) a new 1.7 x 4.5 cm loculated fluid collection in the medial left lower lobe. Chronic findings included pulmonary emphysema, fibrosis/scarring, chronic bony changes, and a right renal cyst. A stat echocardiogram was ordered to further evaluate the worsening pericardial effusion, and pulmonology was consulted regarding the loculated fluid collection. Antibiotics were initiated. The patient is a DNR. She may require transfer as no radiologist will be available on site tomorrow to perform procedures. The plan is to await pulmonology's recommendations, and the patient will remain admitted overnight for continued monitoring. - Review of Systems Constitutional: No Fever, No Chills Eyes: No Symptoms Ears, Nose, & Throat: No Symptoms Respiratory: Short Of Breath, No Cough Cardiac: Chest Pain, No Edema, No Syncope Abdominal/Gastrointestinal: No Abdominal Pain, No Nausea, No Vomiting, No Diarrhea Genitourinary Symptoms: No Dysuria Musculoskeletal: No Back Pain, No Neck Pain Skin: No Rash Neurological: No Dizziness, No Focal Weakness, No Sensory Changes Psychological: No Symptoms Endocrine: No Symptoms Hematologic/Lymphatic: No Symptoms Immunological/Allergic: No Symptoms Objective Exam General Appearance: no apparent distress, alert, thin Neurologic Exam: alert, oriented x 3, cooperative, normal mood/affect, nml cerebellar function, sensation nml, No motor deficits Skin Exam: normal color, warm, dry Eye Exam: PERRL, EOMI, eyes nml inspection Ears, Nose, Throat Exam: normal ENT inspection, pharynx normal, moist mucous membranes Neck Exam: normal inspection, non-tender, supple, full range of motion Respiratory Exam: normal breath sounds, lungs clear, No respiratory distress Cardiovascular Exam: regular rate/rhythm, normal heart sounds Gastrointestinal/Abdomen Exam: soft, No tenderness, No mass Extremity Exam: normal inspection, normal range of motion Back Exam: normal inspection, normal range of motion, No CVA tenderness, No vertebral tenderness Pelvic Exam: deferred Rectal Exam: deferred Objective Data Vital Signs: Vital Signs - 24 hr Temp Pulse Pulse Resp BP BP Pulse Ox 02/02/25 12:00 97.7 F 89 19 91/51 96 02/02/25 08:00 97.6 F 87 15 93/60 98 02/02/25 07:57 86 16 96 02/02/25 04:23 97 F 82 20 93/54 97 02/02/25 03:03 98 H 18 93 L 02/02/25 00:33 95 02/02/25 00:25 97.8 F 80 20 99/81 93 L 02/02/25 00:23 97.8 F 80 20 99/81 93 L 02/02/25 00:00 84 16 88/61 94 L 02/01/25 23:30 86 22 89/69 93 L 02/01/25 23:01 85 21 93/74 94 L 02/01/25 22:39 89 24 96/61 92 L 02/01/25 22:37 89 19 88/71 92 L 02/01/25 22:30 91 H 18 81/54 92 L 02/01/25 22:00 89 23 93/56 95 02/01/25 21:54 90 24 84/66 95 02/01/25 21:30 88 19 77/54 94 L 02/01/25 21:00 91 H 18 88/57 92 L 02/01/25 20:59 93 H 25 H 92/65 92 L 02/01/25 20:52 91 H 17 85/60 92 L 02/01/25 20:00 88 19 97/70 98 02/01/25 19:30 100 H 02/01/25 19:00 105 H 26 H 95/69 96 02/01/25 18:39 117 H 25 H 125/76 94 L 02/01/25 18:38 77 L 02/01/25 18:35 98 F 114 H 28 H 125/76 95 Pain Assessment - Last Documented Pain Intensity 10 Pain Scale Used 0-10 Pain Scale Intake and Output: Intake & Output 01/31/25 02/01/25 02/02/25 02/03/25 11:59 11:59 11:59 11:59 Intake Total 620 240 Balance 620 240 Weight 49.9 kg Lab Results: Lab Results-Last 24 Hours 02/01/25 02/01/25 02/01/25 Range/Units 18:30 18:30 18:30 WBC 7.3 (3.98-10.04) x10^3/uL RBC 4.37 (3.93-5.22) x10^6/uL Hgb 11.2 (11.2-15.7) g/dL Hct 37.5 (34.1-44.9) % MCV 85.8 (79.4-94.8) fL MCH 25.6 (25.6-32.2) pg MCHC 29.9 L (32.2-35.5) g/dL RDW 17.1 H (11.7-14.4) % Plt Count 386 H (182-369) x10^3/uL MPV 9.3 L (9.4-12.3) fL Gran % 74.5 H (34.0-71.1) % Immature Gran % (Auto) 0.5 H (0.001-0.429) % Nucleat RBC Rel Count 0.0 (0.00-0.2) % Eos # (Auto) 0 L (0.04-0.36) x10^3/uL Immature Gran # (Auto) 0.04 H (0.001-0.031) x10^3u/L Absolute Lymphs (auto) 1.23 (1.18-3.74) x10^3/uL Absolute Monos (auto) 0.58 (0.24-0.86) x10^3/uL Absolute Nucleated RBC 0.00 (0.00-0.012) x10^3u/L Lymphocytes % 16.8 L (19.3-51.7) % Monocytes % 7.9 (4.7-12.5) % Eosinophils % 0.0 L (0.7-5.8) % Basophils % 0.3 (0.1-1.2) % Absolute Granulocytes 5.43 (1.56-6.13) x10^3/uL Segmented Neutrophils (34.0-71.1) % Lymphocytes (Manual) (19.3-51.7) % Monocytes (Manual) (4.7-12.5) % Basophils # 0.02 (0.01-0.08) x10^3/uL Hypochromia Platelet Estimate (NORMAL) RBC Morphology Microcytosis D-Dimer (0.0-0.50) mg/L Puncture Site pCO2 (35-45) mmHg pO2 (75-100) mmHg Base Excess (-2.0-2.0) O2 Saturation (94-100) g/dF ABG pH (7.35-7.45) ABG HCO3 (22-28) ABG O2 Sat (Measured) (95-100) % Rom Test A-a Gradient a/A Ratio Hemoglobin Carboxyhemoglobin (0.0-6.9) % THgb Methemoglobin (1.4-1.5) % Temperature C POC O2 Flow Rate % Sodium 134 L (135-145) mmol/L Potassium 4.2 (3.5-5.1) mmol/L Chloride 99 (98-107) mmol/L Carbon Dioxide 24 (22-30) mmol/L Anion Gap 15.2 H (5-15) MEQ/L BUN 20 H (7-17) mg/dL Creatinine 0.45 L (0.52-1.04) mg/dL Estimated GFR 117.1 ML/MIN Glucose 108 H (74-106) mg/dL Calcium 9.2 (8.4-10.2) mg/dL Total Bilirubin 0.30 (0.2-1.3) mg/dL AST 46 H (14-36) U/L ALT 41 H (0-35) U/L Alkaline Phosphatase 195 H (38-126) U/L Troponin I < 0.012 (0.000-0.033) ng/mL NT-Pro-B Natriuret Pep 362 (<300) pg/mL Serum Total Protein 7.1 (6.3-8.2) g/dL Albumin 3.6 (3.5-5.0) g/dL Prealbumin (17.6-36.0) mg/dL TSH 3rd Generation (0.470-4.680) mIU/L Urine Color (Yellow) Urine Appearance (Clear) Urine pH (4.6-8.0) Ur Specific [place] (1.005-1.030) Urine Protein (Negative) Urine Glucose (UA) (Negative) mg/dL Urine Ketones (Negative) Urine Blood (Negative) Urine Nitrite (Negative) Urine Bilirubin (Negative) Urine Urobilinogen (0.2) mg/dL Ur Leukocyte Esterase (Negative) U Hyaline Cast (Auto) (0-2) /LPF Urine Microscopic RBC (0-5) /HPF Urine Microscopic WBC (0-5) /HPF Ur Epithelial Cells (None Seen) /HPF Urine Bacteria (None Seen) /HPF Urine Culture Reflexed (NO) 02/01/25 02/01/25 02/02/25 Range/Units 18:30 21:45 00:02 WBC (3.98-10.04) x10^3/uL RBC (3.93-5.22) x10^6/uL Hgb (11.2-15.7) g/dL Hct (34.1-44.9) % MCV (79.4-94.8) fL MCH (25.6-32.2) pg MCHC (32.2-35.5) g/dL RDW (11.7-14.4) % Plt Count (182-369) x10^3/uL MPV (9.4-12.3) fL Gran % (34.0-71.1) % Immature Gran % (Auto) (0.001-0.429) % Nucleat RBC Rel Count (0.00-0.2) % Eos # (Auto) (0.04-0.36) x10^3/uL Immature Gran # (Auto) (0.001-0.031) x10^3u/L Absolute Lymphs (auto) (1.18-3.74) x10^3/uL Absolute Monos (auto) (0.24-0.86) x10^3/uL Absolute Nucleated RBC (0.00-0.012) x10^3u/L Lymphocytes % (19.3-51.7) % Monocytes % (4.7-12.5) % Eosinophils % (0.7-5.8) % Basophils % (0.1-1.2) % Absolute Granulocytes (1.56-6.13) x10^3/uL Segmented Neutrophils (34.0-71.1) % Lymphocytes (Manual) (19.3-51.7) % Monocytes (Manual) (4.7-12.5) % Basophils # (0.01-0.08) x10^3/uL Hypochromia Platelet Estimate (NORMAL) RBC Morphology Microcytosis D-Dimer 2.32 H* (0.0-0.50) mg/L Puncture Site pCO2 (35-45) mmHg pO2 (75-100) mmHg Base Excess (-2.0-2.0) O2 Saturation (94-100) g/dF ABG pH (7.35-7.45) ABG HCO3 (22-28) ABG O2 Sat (Measured) (95-100) % Rom Test A-a Gradient a/A Ratio Hemoglobin Carboxyhemoglobin (0.0-6.9) % THgb Methemoglobin (1.4-1.5) % Temperature C POC O2 Flow Rate % Sodium (135-145) mmol/L Potassium (3.5-5.1) mmol/L Chloride (98-107) mmol/L Carbon Dioxide (22-30) mmol/L Anion Gap (5-15) MEQ/L BUN (7-17) mg/dL Creatinine (0.52-1.04) mg/dL Estimated GFR ML/MIN Glucose (74-106) mg/dL Calcium (8.4-10.2) mg/dL Total Bilirubin (0.2-1.3) mg/dL AST (14-36) U/L ALT (0-35) U/L Alkaline Phosphatase (38-126) U/L Troponin I < 0.012 (0.000-0.033) ng/mL NT-Pro-B Natriuret Pep (<300) pg/mL Serum Total Protein (6.3-8.2) g/dL Albumin (3.5-5.0) g/dL Prealbumin (17.6-36.0) mg/dL TSH 3rd Generation (0.470-4.680) mIU/L Urine Color Yellow (Yellow) Urine Appearance Clear (Clear) Urine pH 6.0 (4.6-8.0) Ur Specific [place] >=1.030 A (1.005-1.030) Urine Protein Negative (Negative) Urine Glucose (UA) Negative (Negative) mg/dL Urine Ketones Negative (Negative) Urine Blood Negative (Negative) Urine Nitrite Negative (Negative) Urine Bilirubin Negative (Negative) Urine Urobilinogen 1.0 A (0.2) mg/dL Ur Leukocyte Esterase Negative (Negative) U Hyaline Cast (Auto) NONE SEEN (0-2) /LPF Urine Microscopic RBC 3-5 (0-5) /HPF Urine Microscopic WBC 0-2 (0-5) /HPF Ur Epithelial Cells None Seen (None Seen) /HPF Urine Bacteria None Seen (None Seen) /HPF Urine Culture Reflexed NO (NO) 02/02/25 02/02/25 02/02/25 Range/Units 02:20 02:20 02:20 WBC (3.98-10.04) x10^3/uL RBC (3.93-5.22) x10^6/uL Hgb (11.2-15.7) g/dL Hct (34.1-44.9) % MCV (79.4-94.8) fL MCH (25.6-32.2) pg MCHC (32.2-35.5) g/dL RDW (11.7-14.4) % Plt Count (182-369) x10^3/uL MPV (9.4-12.3) fL Gran % (34.0-71.1) % Immature Gran % (Auto) (0.001-0.429) % Nucleat RBC Rel Count (0.00-0.2) % Eos # (Auto) (0.04-0.36) x10^3/uL Immature Gran # (Auto) (0.001-0.031) x10^3u/L Absolute Lymphs (auto) (1.18-3.74) x10^3/uL Absolute Monos (auto) (0.24-0.86) x10^3/uL Absolute Nucleated RBC (0.00-0.012) x10^3u/L Lymphocytes % (19.3-51.7) % Monocytes % (4.7-12.5) % Eosinophils % (0.7-5.8) % Basophils % (0.1-1.2) % Absolute Granulocytes (1.56-6.13) x10^3/uL Segmented Neutrophils (34.0-71.1) % Lymphocytes (Manual) (19.3-51.7) % Monocytes (Manual) (4.7-12.5) % Basophils # (0.01-0.08) x10^3/uL Hypochromia Platelet Estimate (NORMAL) RBC Morphology Microcytosis D-Dimer (0.0-0.50) mg/L Puncture Site pCO2 (35-45) mmHg pO2 (75-100) mmHg Base Excess (-2.0-2.0) O2 Saturation (94-100) g/dF ABG pH (7.35-7.45) ABG HCO3 (22-28) ABG O2 Sat (Measured) (95-100) % Rom Test A-a Gradient a/A Ratio Hemoglobin Carboxyhemoglobin (0.0-6.9) % THgb Methemoglobin (1.4-1.5) % Temperature C POC O2 Flow Rate % Sodium 136 (135-145) mmol/L Potassium 3.6 (3.5-5.1) mmol/L Chloride 104 (98-107) mmol/L Carbon Dioxide 26 (22-30) mmol/L Anion Gap 9.1 (5-15) MEQ/L BUN 15 (7-17) mg/dL Creatinine 0.54 (0.52-1.04) mg/dL Estimated GFR 112.1 ML/MIN Glucose 153 H (74-106) mg/dL Calcium 8.8 (8.4-10.2) mg/dL Total Bilirubin 0.30 (0.2-1.3) mg/dL AST 39 H (14-36) U/L ALT 33 (0-35) U/L Alkaline Phosphatase 145 H (38-126) U/L Troponin I < 0.012 (0.000-0.033) ng/mL NT-Pro-B Natriuret Pep (<300) pg/mL Serum Total Protein 6.4 (6.3-8.2) g/dL Albumin 3.1 L (3.5-5.0) g/dL Prealbumin 10.38 L (17.6-36.0) mg/dL TSH 3rd Generation 6.576 H (0.470-4.680) mIU/L Urine Color (Yellow) Urine Appearance (Clear) Urine pH (4.6-8.0) Ur Specific [place] (1.005-1.030) Urine Protein (Negative) Urine Glucose (UA) (Negative) mg/dL Urine Ketones (Negative) Urine Blood (Negative) Urine Nitrite (Negative) Urine Bilirubin (Negative) Urine Urobilinogen (0.2) mg/dL Ur Leukocyte Esterase (Negative) U Hyaline Cast (Auto) (0-2) /LPF Urine Microscopic RBC (0-5) /HPF Urine Microscopic WBC (0-5) /HPF Ur Epithelial Cells (None Seen) /HPF Urine Bacteria (None Seen) /HPF Urine Culture Reflexed (NO) 02/02/25 02/02/25 Range/Units 03:20 09:30 WBC 5.5 (3.98-10.04) x10^3/uL RBC 3.62 L (3.93-5.22) x10^6/uL Hgb 9.5 L (11.2-15.7) g/dL Hct 31.3 L (34.1-44.9) % MCV 86.5 (79.4-94.8) fL MCH 26.2 (25.6-32.2) pg MCHC 30.4 L (32.2-35.5) g/dL RDW 17.1 H (11.7-14.4) % Plt Count 334 (182-369) x10^3/uL MPV 9.3 L (9.4-12.3) fL Gran % (34.0-71.1) % Immature Gran % (Auto) (0.001-0.429) % Nucleat RBC Rel Count (0.00-0.2) % Eos # (Auto) (0.04-0.36) x10^3/uL Immature Gran # (Auto) (0.001-0.031) x10^3u/L Absolute Lymphs (auto) (1.18-3.74) x10^3/uL Absolute Monos (auto) (0.24-0.86) x10^3/uL Absolute Nucleated RBC (0.00-0.012) x10^3u/L Lymphocytes % (19.3-51.7) % Monocytes % (4.7-12.5) % Eosinophils % (0.7-5.8) % Basophils % (0.1-1.2) % Absolute Granulocytes (1.56-6.13) x10^3/uL Segmented Neutrophils 70 (34.0-71.1) % Lymphocytes (Manual) 26 (19.3-51.7) % Monocytes (Manual) 4 L (4.7-12.5) % Basophils # (0.01-0.08) x10^3/uL Hypochromia 1+ Platelet Estimate NORMAL (NORMAL) RBC Morphology ABNORMAL Microcytosis 1+ D-Dimer (0.0-0.50) mg/L Puncture Site RIGHT BRACHIAL pCO2 40 (35-45) mmHg pO2 71 L (75-100) mmHg Base Excess 0.7 (-2.0-2.0) O2 Saturation 93.2 L (94-100) g/dF ABG pH 7.41 (7.35-7.45) ABG HCO3 25.4 (22-28) ABG O2 Sat (Measured) 96.6 (95-100) % Rom Test NOT APPLICABLE A-a Gradient 164 a/A Ratio 0.30 Hemoglobin 10.3 Carboxyhemoglobin 2.5 (0.0-6.9) % THgb Methemoglobin 1.0 L (1.4-1.5) % Temperature 37.0 C POC O2 Flow Rate 40 % Sodium (135-145) mmol/L Potassium 4.2 (3.5-5.1) mmol/L Chloride (98-107) mmol/L Carbon Dioxide (22-30) mmol/L Anion Gap (5-15) MEQ/L BUN (7-17) mg/dL Creatinine (0.52-1.04) mg/dL Estimated GFR ML/MIN Glucose (74-106) mg/dL Calcium (8.4-10.2) mg/dL Total Bilirubin (0.2-1.3) mg/dL AST (14-36) U/L ALT (0-35) U/L Alkaline Phosphatase (38-126) U/L Troponin I (0.000-0.033) ng/mL NT-Pro-B Natriuret Pep (<300) pg/mL Serum Total Protein (6.3-8.2) g/dL Albumin (3.5-5.0) g/dL Prealbumin (17.6-36.0) mg/dL TSH 3rd Generation (0.470-4.680) mIU/L Urine Color (Yellow) Urine Appearance (Clear) Urine pH (4.6-8.0) Ur Specific [place] (1.005-1.030) Urine Protein (Negative) Urine Glucose (UA) (Negative) mg/dL Urine Ketones (Negative) Urine Blood (Negative) Urine Nitrite (Negative) Urine Bilirubin (Negative) Urine Urobilinogen (0.2) mg/dL Ur Leukocyte Esterase (Negative) U Hyaline Cast (Auto) (0-2) /LPF Urine Microscopic RBC (0-5) /HPF Urine Microscopic WBC (0-5) /HPF Ur Epithelial Cells (None Seen) /HPF Urine Bacteria (None Seen) /HPF Urine Culture Reflexed (NO) Radiology Exams: Radiology Procedures Category Date Time Status CHEST 1 VIEW (PORTABLE) Stat Exams 02/01/25 18:39 Completed CHEST WITH CONTRAST [CT] Stat Exams 02/01/25 19:55 Completed ECHO W/2D AND DOPPLER [US] Stat Exams 02/02/25 10:30 Taken Medications: Medications Generic Name Dose Route Start Last Admin Trade Name Freq PRN Reason Stop Dose Admin Acetaminophen 650 mg 02/02/25 02:08 Acetaminophen 325 Mg Tablet PO 03/04/25 02:07 Q4HPRN PRN PAIN Hydrocodone Bitart/Acetaminophen 1 tab 02/02/25 02:08 02/02/25 13:29 Hydrocodone/Apap 5/325 1 Tab Tablet PO 02/07/25 02:07 1 tab Q4HPRN PRN Administration PAIN Albuterol/Ipratropium 3 ml 02/02/25 02:08 Ipratropium/Albuterol Sulfate 3 Ml Ampul.Neb IH 03/04/25 02:07 Q4HPRN PRN SHORTNESS OF BREATH Clonazepam 0.5 mg 02/02/25 02:08 Clonazepam 0.5 Mg Tablet PO 03/04/25 02:07 BID PRN PRN ANXIETY Enoxaparin Sodium 40 mg 02/02/25 10:00 02/02/25 09:05 Enoxaparin Sodium 40 Mg/0.4 Ml Syringe SQ 03/04/25 09:59 40 mg DAILY FERCHO Administration Furosemide 20 mg 02/02/25 10:00 02/02/25 09:04 Furosemide 20 Mg Tablet PO 03/04/25 09:59 Not Given DAILY FERCHO Metronidazole 500 mg in 100 mls @ 200 mls/hr 02/02/25 18:00 Flagyl 500 Mg Ivpb IV 03/04/25 17:59 Q6HT FERCHO Levofloxacin/Dextrose 750 mg in 150 mls @ 100 mls/hr 02/02/25 16:35 Levofloxacin 750mg/150ml D5w IV 02/02/25 18:04 STAT STA Levothyroxine Sodium 50 mcg 02/02/25 22:00 Levothyroxine Sodium 50 Mcg Tablet PO 03/04/25 21:59 HS [facility] Miscellaneous Information 1 each 02/02/25 07:30 Medication Intervention 1 Each Each 03/04/25 07:29 .RN TO CHECK FERCHO Polyethylene Glycol 17 gm 02/02/25 10:00 02/02/25 09:05 Polyethylene Glycol 3350 17 Gm Packet PO 03/04/25 09:59 Not Given DAILY FERCHO Sertraline HCl 50 mg 02/02/25 10:00 02/02/25 09:06 Sertraline Hcl 50 Mg Tab PO 03/04/25 09:59 50 mg BID FERCHO Administration Triamcinolone Acetonide 15 gm 02/02/25 10:00 02/02/25 09:06 Triamcinolone Acetonide 0.1% 15 Gm Cream TP 03/04/25 09:59 15 gm BID FERCHO Administration Discontinued Medications Generic Name Dose Route Start Last Admin Trade Name Freq PRN Reason Stop Dose Admin Acetaminophen 650 mg 02/02/25 02:08 Acetaminophen 325 Mg Tablet PO 03/04/25 02:07 Q4HPRN PRN FEVER Aspirin 324 mg 02/01/25 18:38 02/01/25 18:56 Aspirin 81 Mg Tab.Chew PO 02/01/25 18:39 324 mg STAT ONE Administration Aspirin Confirm 02/01/25 18:54 Aspirin 81 Mg Tab.Chew Administered 02/01/25 18:55 Dose 324 mg .ROUTE .STK-MED ONE Fentanyl Citrate 50 mcg 02/01/25 18:48 02/01/25 18:57 Fentanyl Citrate 100 Mcg/2 Ml* Vial IV 02/01/25 18:49 50 mcg STAT ONE Administration Fentanyl Citrate Confirm 02/01/25 18:55 Fentanyl Citrate 100 Mcg/2 Ml* Vial Administered 02/01/25 18:56 Dose 100 mcg .ROUTE .STK-MED ONE Fentanyl Citrate Confirm 02/01/25 19:02 Fentanyl Citrate 100 Mcg/2 Ml* Vial Administered 02/01/25 19:03 Dose 100 mcg .ROUTE .STK-MED ONE Sodium Chloride 500 mls @ 500 mls/hr 02/01/25 21:06 02/01/25 22:09 Sodium Chloride 0.9% 500 Ml IV 02/01/25 22:05 Infused .Q1H ONE Infusion Sodium Chloride Confirm 02/01/25 21:08 Sodium Chloride 0.9% 500 Ml Administered 02/01/25 21:09 Dose 500 mls @ ud IV .STK-MED ONE Sodium Chloride 500 mls @ 500 mls/hr 02/01/25 22:40 02/02/25 00:04 Sodium Chloride 0.9% 500 Ml IV 02/01/25 23:39 0 mls/hr .Q1H ONE Infusion Sodium Chloride 1,000 mls @ 100 mls/hr 02/02/25 02:15 02/02/25 02:22 Sodium Chloride 0.9% 1000 Ml IV 03/04/25 02:14 100 mls/hr .Q10H FERCHO Administration Midodrine 5 mg 02/01/25 22:40 02/01/25 22:58 Midodrine Hcl 5 Mg Tablet PO 02/01/25 22:41 5 mg ONCE ONE Administration Ondansetron HCl 4 mg 02/01/25 18:48 02/01/25 18:57 Ondansetron Hcl 4 Mg/2 Ml Vial IV 02/01/25 18:49 4 mg STAT ONE Administration Ondansetron HCl Confirm 02/01/25 18:54 Ondansetron Hcl 4 Mg/2 Ml Vial Administered 02/01/25 18:55 Dose 4 mg .ROUTE .STK-MED ONE Ondansetron HCl 4 mg 02/02/25 02:12 Ondansetron Hcl 4 Mg/2 Ml Vial IV 03/04/25 02:11 Q6H PRN PRN NAUSEA/VOMITING Multi-Disciplinary Progress Notes: Multi-Disciplinary Progress Notes 02/02/25 09:39 Respiratory Note by Faith Frey RT CALLED DUE TO SPO2 DROPPING TO 79% ON 3L NC. O2 INCREASED TO 4L-SPO2 INCREASED TO 84%. PT C/O SOB. O2 INCREASED TO 5L NC. ABG DRAWN ON 5L NC. SPO2 INCREASED TO 94% PT C/O SOB IMPROVED Initialized on 02/02/25 09:39 - END OF NOTE Assessment/Plan (1) Precordial chest pain Current Visit: Yes Status: Acute Code(s): R07.2 - PRECORDIAL PAIN (2) Pericardial effusion Current Visit: Yes Status: Acute Code(s): I31.39 - OTHER PERICARDIAL EFFUSION (NONINFLAMMATORY) (3) Anxiety disorder Current Visit: No Status: Chronic Code(s): F41.9 - ANXIETY DISORDER, UNSPECIFIED (4) Bipolar 1 disorder Current Visit: No Status: Chronic Code(s): F31.9 - BIPOLAR DISORDER, UNSPECIFIED (5) COPD (chronic obstructive pulmonary disease) Current Visit: No Status: Chronic (6) Hypothyroidism Current Visit: No Status: Chronic Code(s): E03.9 - HYPOTHYROIDISM, UNSPECIFIED (7) Pleural effusion Current Visit: No Status: Chronic Code(s): J90 - PLEURAL EFFUSION, NOT ELSEWHERE CLASSIFIED (8) Hypotension Current Visit: Yes Status: Resolved Assessment & Plan: 1) Precordial chest pain Current Visit: Yes Status: Acute Assessment & Plan: - Acute on chronic - Serial troponins x3 negative - telemetry. - ASA 81 mg for now - TSH pending - Chest CT: Impression: 1. Continued negative pulmonary embolus. 2. Again borderline cardiomegaly with worsening mild pericardial effusion. Echocardiogram may yield further information. 3. Again bibasilar atelectasis/scarring with tiny effusions. Medial left lower lobe now demonstrates focal 1.7 x 4.5 cm loculated fluid collection. 4. Chronic findings including pulmonary emphysema, fibrosis/scarring, chronic bony findings, and right renal cyst. - CXR: Portable chest unchanged again demonstrating COPD and minimal left base subsegmental atelectasis/scarring. Heart not enlarged. Bony thorax intact again with osteopenia and degenerative changes. No new/acute findings. - Echo Code(s): R07.2 - PRECORDIAL PAIN (2) Pericardial effusion Current Visit: Yes Status: Acute Assessment & Plan: - Acute on chronic - Appears worse per CT chest results - Stat Echo- pending Code(s): I31.39 - OTHER PERICARDIAL EFFUSION (NONINFLAMMATORY) (3) Anxiety disorder Current Visit: No Status: Chronic Assessment & Plan: - Continue home meds Code(s): F41.9 - ANXIETY DISORDER, UNSPECIFIED (4) Bipolar 1 disorder Current Visit: No Status: Chronic Assessment & Plan: - Continue home meds Code(s): F31.9 - BIPOLAR DISORDER, UNSPECIFIED (5) COPD (chronic obstructive pulmonary disease) Current Visit: No Status: Chronic Assessment & Plan: -Nebs prn. - No acute exacerbation. (6) Hypothyroidism Current Visit: No Status: Chronic Assessment & Plan: - TSH pending - Continue home meds Code(s): E03.9 - HYPOTHYROIDISM, UNSPECIFIED (7) Pleural effusion Current Visit: No Status: Chronic Assessment & Plan: - Chronic and unchanged as seen on CT Code(s): J90 - PLEURAL EFFUSION, NOT ELSEWHERE CLASSIFIED (8) Hypotension Current Visit: Yes Status: Resolved Assessment & Plan: - Resolved Code(s): I95.9 - HYPOTENSION, UNSPECIFIED Code(s): I95.9 - HYPOTENSION, UNSPECIFIED (9) Loculated pleural effusion Current Visit: Yes Status: Acute Assessment & Plan: - Levaquin and flagyl started - Pulm consulted. Mgnt and plan of care time > 45 minutes. Code(s): J90 - PLEURAL EFFUSION, NOT ELSEWHERE CLASSIFIED
[2025-02-02] MEDS ORDERED: LEVOFLOXACIN 750MG/150ML D5W 750 MG/150 ML BAG IV ONE (17:11)
[2025-02-02] MEDS: LEVOFLOXACIN 750MG/150ML D5W 750 MG/150 ML BAG IV STA (17:13)
[2025-02-02] MEDS: FLAGYL 500 MG IVPB 500 MG/100 ML BAG IV SCH (19:00)
[2025-02-02] MEDS: DUONEB 0.5-3 MG/3 ml Neb IH PRN (19:22)
[2025-02-02] MEDS: SYNTHROID 50 MCG PO SCH (22:24)
[2025-02-02] MEDS: MELATONIN PO PRN (22:40)
[2025-02-02] MEDS: DESYREL 50 MG PO SCH (22:40)
[2025-02-03 04:54] LABS: Hematocrit 31.6 % (34.1-44.9); Hemoglobin 9.1 g/dL (11.2-15.7); Mean Corpuscular Hemoglobin 25.3 pg (25.6-32.2); Mean Corpuscular Hgb Concent. 28.8 g/dL (32.2-35.5); Platelet Count 290 x10^3/uL (182-369); Red Blood Count 3.60 x10^6/uL (3.93-5.22); White Blood Count 4.7 x10^3/uL (3.98-10.04)
[2025-02-03 05:08] LABS: Calcium 8.9 mg/dL (8.4-10.2); Carbon Dioxide 26.0 mmol/L (22-30); Creatinine 1 0.33 mg/dL (0.52-1.04); EST GLOMERULAR FILTRATION RATE 126.2 ML/MIN; Glucose 97.0 mg/dL (74-106); Potassium 4.2 mmol/L (3.5-5.1); SGOT/AST 35.0 U/L (14-36); SGPT/ALT 29.0 U/L (0-35); Total Protein 6.6 g/dL (6.3-8.2)
[2025-02-03] MEDS: solu-MEDROL 40 MG, Sterile H2O 10 ml 1 ML IV SCH (12:53)
--- NOTE | 2025-02-03 13:07 | PCM.DS ---
Discharge Summary Date of Admission: 02/02/25 00:18 Date of Discharge: 02/03/25 Admitting Physician: SP VAZQUEZ MD Consults: Consults on Case 02/02/25 16:39 Consult Pulmonology ROUTINE Primary Care Provider: [facility] Allergies Allergies amoxicillin [Amoxicillin] Allergy (Mild, Verified 02/01/25 18:46) Vomiting codeine [Codeine] Allergy (Mild, Verified 02/01/25 18:46) Vomiting metoprolol Allergy (Verified 02/01/25 18:46) Swelling of Tongue and Lips ranolazine Allergy (Verified 02/01/25 18:46) Swelling of Tongue and Lips Hospital Summary - Hospital Course Hospital Course: 02/02/25 The patient is a 49-year-old female with a medical history significant for respiratory failure secondary to COPD (on 3L oxygen), anxiety, depression, chronic back pain due to a lumbar compression fracture, and a recent diagnosis of renal cancer. She currently resides at [facility] and presented to the emergency department with intermittent substernal chest pain that has been occurring over the past several months, with worsening discomfort over the past couple of days. She denies shortness of breath, fever, chills, dysuria, diarrhea, or rash. Her chronic smokers cough has not worsened. She reports that [place] offers only minimal relief for her chest pain. In the ED, she was found to be hypotensive and was given IV fluids. Troponins were negative, and EKG showed no acute abnormalities. Despite elevated D-dimer at 2.32, a chest CT ruled out pulmonary embolism. She remains on her baseline oxygen requirement of 3L with oxygen saturations at 98%. Her hemoglobin was 9.5, consistent with her baseline, and liver enzymes have improved. Overall labs were non-concerning. CT chest findings included: (1) no evidence of pulmonary embolism; (2) borderline cardiomegaly with worsening mild pericardial effusion; (3) bibasilar atelectasis and scarring with tiny effusions; and (4) a new 1.7 x 4.5 cm loculated fluid collection in the medial left lower lobe. Chronic findings included pulmonary emphysema, fibrosis/scarring, chronic bony changes, and a right renal cyst. A stat echocardiogram was ordered to further evaluate the worsening pericardial effusion, and pulmonology was consulted regarding the loculated fluid collection. Antibiotics were initiated. The patient is a DNR. She may require transfer as no radiologist will be available on site tomorrow to perform procedures. The plan is to await pulmonology's recommendations, and the patient will remain admitted overnight for continued monitoring. 02/03/25 The results of the CT scan were reviewed and discussed with the patient and her family. The patient has a confirmed diagnosis of renal cancer, with supporting documentation from nephrology. Records indicate concern for possible metastases. She had previously been referred to outpatient urology but did not attend any of her follow-up appointments. After a thorough discussion, the patient expressed her wish to transition to comfort measures only, with consideration for hospice care at the nursing facility where she currently resides. She has declined any further curative or invasive treatment at this time. Pulmonology, which was also consulted, recommended a comfort-focused approach, and this was reviewed with the patient. Discharge is planned for today with appropriate medications for symptom relief, and her pain management regimen will be increased to ensure comfort. Pulmonology will be notified of the discharge plan. - Vitals & Intake/Output Vital Signs: Vital Signs Temperature 97.2 F 02/03/25 11:50 Pulse Rate 98 H 02/03/25 11:50 Respiratory Rate 22 02/03/25 11:50 Blood Pressure 134/84 02/03/25 11:50 O2 Sat by Pulse Oximetry 93 L 02/03/25 11:50 Intake & Output: Intake & Output 02/01/25 02/02/25 02/03/25 02/04/25 11:59 11:59 11:59 11:59 Intake Total 620 2071 Output Total 750 Balance 620 1321 Weight 49.9 kg - Lab Result Diagrams: 02/03/25 04:35 02/03/25 04:35 Lab Results-Last 24 Hrs: Lab Results-Last 24 Hours 02/02/25 02/03/25 02/03/25 Range/Units 02:20 04:35 04:35 WBC 4.7 (3.98-10.04) x10^3/uL RBC 3.60 L (3.93-5.22) x10^6/uL Hgb 9.1 L (11.2-15.7) g/dL Hct 31.6 L (34.1-44.9) % MCV 87.8 (79.4-94.8) fL MCH 25.3 L (25.6-32.2) pg MCHC 28.8 L (32.2-35.5) g/dL RDW 17.0 H (11.7-14.4) % Plt Count 290 (182-369) x10^3/uL MPV 9.9 (9.4-12.3) fL ESR (0-20) mm/hr Sodium 135 (135-145) mmol/L Potassium 4.2 (3.5-5.1) mmol/L Chloride 103 (98-107) mmol/L Carbon Dioxide 26 (22-30) mmol/L Anion Gap 9.9 (5-15) MEQ/L BUN 11 (7-17) mg/dL Creatinine 0.33 L (0.52-1.04) mg/dL Estimated GFR 126.2 ML/MIN Glucose 97 (74-106) mg/dL Calcium 8.9 (8.4-10.2) mg/dL Total Bilirubin 0.30 (0.2-1.3) mg/dL AST 35 (14-36) U/L ALT 29 (0-35) U/L Alkaline Phosphatase 156 H (38-126) U/L Serum Total Protein 6.6 (6.3-8.2) g/dL Albumin 3.2 L (3.5-5.0) g/dL TSH 3rd Generation 6.576 H (0.470-4.680) mIU/L 02/03/25 Range/Units 04:35 WBC (3.98-10.04) x10^3/uL RBC (3.93-5.22) x10^6/uL Hgb (11.2-15.7) g/dL Hct (34.1-44.9) % MCV (79.4-94.8) fL MCH (25.6-32.2) pg MCHC (32.2-35.5) g/dL RDW (11.7-14.4) % Plt Count (182-369) x10^3/uL MPV (9.4-12.3) fL ESR 94 H (0-20) mm/hr Sodium (135-145) mmol/L Potassium (3.5-5.1) mmol/L Chloride (98-107) mmol/L Carbon Dioxide (22-30) mmol/L Anion Gap (5-15) MEQ/L BUN (7-17) mg/dL Creatinine (0.52-1.04) mg/dL Estimated GFR ML/MIN Glucose (74-106) mg/dL Calcium (8.4-10.2) mg/dL Total Bilirubin (0.2-1.3) mg/dL AST (14-36) U/L ALT (0-35) U/L Alkaline Phosphatase (38-126) U/L Serum Total Protein (6.3-8.2) g/dL Albumin (3.5-5.0) g/dL TSH 3rd Generation (0.470-4.680) mIU/L - Radiology Exams Ordered Rad Exams-Entire Visit: Radiology Procedures Category Date Time Status CHEST 1 VIEW (PORTABLE) Stat Exams 02/01/25 18:39 Completed CHEST WITH CONTRAST [CT] Stat Exams 02/01/25 19:55 Completed ECHO W/2D AND DOPPLER [US] Stat Exams 02/02/25 10:30 Taken - Procedures and Test Procedures and Tests throughout Hospitalization: Therapy Orders & Screens 02/02/25 02:12 EKG REPEAT IN AM Comment: Diagnosis: Precordial chest pain 02/02/25 03:02 Oxygen Nasal Cannula 3 lpm Comment: Diagnosis: Precordial chest pain Respiratory Therapy Assessment DAILY Comment: Diagnosis: Precordial chest pain 02/02/25 03:03 Smoking Cessation Education ONCE Comment: Diagnosis: Precordial chest pain Smoking Status: Current every day smoker How long have you smoked: 30 + Have you smoked in the past 12 months: Yes Approximately how many cigarettes per day: 1/2 pack/day Do you dip or chew tobacco: No Discharge Exam General Appearance: no apparent distress, alert Neurologic Exam: alert, oriented x 3, cooperative, normal mood/affect, nml cerebellar function, sensation nml, motor weakness, No motor deficits Eye Exam: PERRL, EOMI, eyes nml inspection Ears, Nose, Throat Exam: normal ENT inspection, pharynx normal, moist mucous membranes Neck Exam: normal inspection, non-tender, supple, full range of motion Respiratory Exam: normal breath sounds, lungs clear, diminished breath sounds, No respiratory distress Cardiovascular Exam: regular rate/rhythm, normal heart sounds Gastrointestinal/Abdomen Exam: soft, No tenderness, No mass Pelvic Exam: deferred Rectal Exam: deferred Back Exam: normal inspection, normal range of motion, No CVA tenderness, No vertebral tenderness Extremity Exam: normal inspection, normal range of motion Skin Exam: normal color, warm, dry Final Diagnosis/Problem List - Final Discharge Diagnosis/Problem (1) Precordial chest pain Current Visit: Yes Status: Acute Code(s): R07.2 - PRECORDIAL PAIN (2) Pericardial effusion Current Visit: Yes Status: Acute Code(s): I31.39 - OTHER PERICARDIAL EFFUSION (NONINFLAMMATORY) (3) Anxiety disorder Current Visit: No Status: Chronic Code(s): F41.9 - ANXIETY DISORDER, UNSPECIFIED (4) Bipolar 1 disorder Current Visit: No Status: Chronic Code(s): F31.9 - BIPOLAR DISORDER, UNSPECIFIED (5) COPD (chronic obstructive pulmonary disease) Current Visit: No Status: Chronic (6) Hypothyroidism Current Visit: No Status: Chronic Code(s): E03.9 - HYPOTHYROIDISM, UNSPECIFIED (7) Pleural effusion Current Visit: No Status: Chronic Code(s): J90 - PLEURAL EFFUSION, NOT ELSEWHERE CLASSIFIED (8) Hypotension Current Visit: Yes Status: Resolved Code(s): I95.9 - HYPOTENSION, UNSPECIFIED (9) Loculated pleural effusion Current Visit: Yes Status: Acute Assessment & Plan: 1) Precordial chest pain Current Visit: Yes Status: Acute Assessment & Plan: - Acute on chronic - Serial troponins x3 negative - telemetry. - ASA 81 mg for now - TSH pending - Chest CT: Impression: 1. Continued negative pulmonary embolus. 2. Again borderline cardiomegaly with worsening mild pericardial effusion. Echocardiogram may yield further information. 3. Again bibasilar atelectasis/scarring with tiny effusions. Medial left lower lobe now demonstrates focal 1.7 x 4.5 cm loculated fluid collection. 4. Chronic findings including pulmonary emphysema, fibrosis/scarring, chronic bony findings, and right renal cyst. - CXR: Portable chest unchanged again demonstrating COPD and minimal left base subsegmental atelectasis/scarring. Heart not enlarged. Bony thorax intact again with osteopenia and degenerative changes. No new/acute findings. - Echo: pericardium is poorly visualized per echo report, mild LVH and TR Code(s): R07.2 - PRECORDIAL PAIN (2) Pericardial effusion Current Visit: Yes Status: Acute Assessment & Plan: - Acute on chronic - Appears worse per CT chest results - Stat Echo- results reviewed Code(s): I31.39 - OTHER PERICARDIAL EFFUSION (NONINFLAMMATORY) (3) Anxiety disorder Current Visit: No Status: Chronic Assessment & Plan: - Continue home meds Code(s): F41.9 - ANXIETY DISORDER, UNSPECIFIED (4) Bipolar 1 disorder Current Visit: No Status: Chronic Assessment & Plan: - Continue home meds Code(s): F31.9 - BIPOLAR DISORDER, UNSPECIFIED (5) COPD (chronic obstructive pulmonary disease) Current Visit: No Status: Chronic Assessment & Plan: -Nebs prn. - No acute exacerbation. (6) Hypothyroidism Current Visit: No Status: Chronic Assessment & Plan: - TSH pending - Continue home meds Code(s): E03.9 - HYPOTHYROIDISM, UNSPECIFIED (7) Pleural effusion Current Visit: No Status: Chronic Assessment & Plan: - Chronic and unchanged as seen on CT Code(s): J90 - PLEURAL EFFUSION, NOT ELSEWHERE CLASSIFIED (8) Hypotension Current Visit: Yes Status: Resolved Assessment & Plan: - Resolved Code(s): I95.9 - HYPOTENSION, UNSPECIFIED (9) Loculated pleural effusion Current Visit: Yes Status: Acute Assessment & Plan: - Levaquin and flagyl started - Pulm consulted. - recommended comfort measures - Pt is thinking about Hospice- Case management to discuss. - Pt wants comfort measures for now and will transition to Hospice at facility when ready. Mgnt and plan of care time > 45 minutes. Code(s): J90 - PLEURAL EFFUSION, NOT ELSEWHERE CLASSIFIED Code(s): J90 - PLEURAL EFFUSION, NOT ELSEWHERE CLASSIFIED - Discharge Discharge Date: 02/03/25 Disposition: DC TO ANY "OTHER" [facility] Condition: Stable Prescriptions: New Oxycodone/APAP 5 mg/325 mg [Percocet Tablet 5/325Mg] 1 tab PO Q4H PRN PRN 3 Days #15 tablet MDD 5 PRN Reason: Pain Continue clonazePAM 0.5 mg PO BID PRN PRN 3 Days #6 tablet PRN Reason: Anxiety Sertraline HCl 50 mg [Zoloft 50 mg Tablet] 50 mg PO BID Polyethylene Glycol 3350 17 gm [Miralax Powder 17GM PACKET] 17 gm PO DAILY Ondansetron ODT 4 MG [Zofran Odt 4 mg] 4 mg PO Q6HPRN PRN PRN Reason: Nausea Levothyroxine Sodium 50 Mcg [Synthroid 50 Mcg] 50 mcg PO HS Furosemide 20 mg [Lasix 20 mg] 20 mg PO DAILY Ipratropium/Albuterol Sulfate [Iprat-Albut 0.5-3(2.5) mg/3 ml] 3 ml IH Q4HPRN PRN PRN Reason: Shortness Of Breath Albuterol Sulfate/Budesonide [Airsupra 90-80 Mcg Inhaler] 1 puff IH Q4HPRN PRN PRN Reason: Shortness Of Breath Acetaminophen 325 mg [Tylenol 325 mg] 650 mg PO Q4HPRN PRN PRN Reason: Pain Acetaminophen 325 mg [Tylenol 325 mg] 650 mg PO Q4HPRN PRN PRN Reason: Fever Triamcinolone 0.1% Cream [Kenalog 0.1% Cream 15 gm] 15 gm TP BID Discontinued Hydrocodone/Acetaminophen [Hydrocodone-Acetamin 5-325 mg] 1 tab PO Q4HPRN PRN MDD 6 PRN Reason: Pain Additional Instructions: [facility] ORDERS: RESUME PREVIOUS [facility] ORDERS COMFORT MEASURES ONLY SEE ATTACHED MED LIST Follow up with: STONE FLYNN OF [Primary Care Provider, UNKNOWN]
[2025-02-03 16:47] VITALS: BP 109/67; PULSE 88; RESP 19; TEMP 97.5; O2SAT 95
[2025-02-03] MEDS: PERCOCET TABLET 5/325MG PO PRN (17:31)
[2025-02-03] MEDS: LEVOFLOXACIN 750MG/150ML D5W 750 MG/150 ML BAG IV SCH (18:28)
[2025-02-03] MEDS ORDERED: Advair Hfa 115/21 Common canister IH SCH (19:00)
== END 2025-02-03 18:55 ==
LOC: ED 18:34 → MED SURG 02-02 00:18
PROVIDERS: ADMIT Internal Medicine; ATTEND Internal Medicine
DX: R07.2 Precordial pain (principal); I31.39 Other pericardial effusion (noninflammatory); F41.9 Anxiety disorder, unspecified; F31.9 Bipolar disorder, unspecified; J44.9 Chronic obstructive pulmonary disease, unspecified; E03.9 Hypothyroidism, unspecified; J90 Pleural effusion, not elsewhere classified; I95.9 Hypotension, unspecified; Z79.899 Other long term (current) drug therapy; Z99.81 Dependence on supplemental oxygen; C64.9 Malignant neoplasm of unspecified kidney, except renal pelvis; F17.200 Nicotine dependence, unspecified, uncomplicated
CPT/HCPCS: 36415; 36600; 71045; 71260; 80048; 80053; 81001; 82040; 82247; 82375; 82803; 83521; 83880; 84075; 84134; 84443; 84450; 84460; 84484; 85025; 85027; 85379; 85652; 86140; 93005; 93041; 93306; 94640; 94762; 96360; 96374; 96375; 99285; Q3014